=== PATIENT | female | born 1950 | race Caucasian/White ===

== ENCOUNTER 2017-11-09 03:43 | Emergency (ER) | payer MEDICARE, OTHER, SELFPAY ==
[2017-11-09 03:49] VITALS: BP 152/80; PULSE 77; RESP 18; TEMP 36.3; O2SAT 96
[2017-11-09] MEDS: Bupivacaine 0.5% Pres-Free 30 ML VIAL (04:01)
[2017-11-09] MEDS: Lidocaine 2% Multi-Dose 50 ML VIAL (04:02)
--- NOTE | 2017-11-09 04:02 | W.ED.GENAD ---
Discharge Plan Disposition Patient Disposition: HOME Condition: Good Discharge Details Chief Complaint: DentalOral Clinical Impression: Pain, dental Primary Care Provider: Venice Mcdonnell ED Provider: Norberto Sevilla Home Meds and New Rx's Prescriptions: New acetaminophen [Mapap Extra Strength] 500 MG tablet 1,000 mg PO Q6H 5 Days Qty: 60 RF: 0 ibuprofen [Motrin IB] 200 MG tablet 600 mg PO Q6H 5 Days Qty: 60 RF: 0 amoxicillin-pot clavulanate 875-125 mg tablet 1 tab PO Q12H 7 Days Qty: 14 RF: 0 No Action cholecalciferol (vitamin D3) 5,000 UNIT capsule 5,000 unit PO DAILY RF: 0 [id number] acid-lutein 1 EACH tablet,chewable 2 ea PO DAILY RF: 0 citalopram [Celexa] 20 MG tablet 20 mg PO DAILY Qty: 90 RF: 12 fluticasone 16 GM spray,suspension 2 spry NS DAILY Qty: 3 RF: 4 montelukast 10 MG tablet 10 mg PO DAILY Qty: 90 RF: 4 levalbuterol tartrate [Xopenex HFA] 15 GM HFA aerosol inhaler 2 puff Inhalation QID PRNQty: 4 RF: 12 budesonide-formoterol [Symbicort] 10.2 GM HFA aerosol inhaler 2 puff Inhalation BID Qty: 3 RF: 4 prednisone 5 MG tablet 5 mg PO DAILY Qty: 90 RF: 1 Discharge Instructions Instructions: Toothache (ED) Additional Instructions: Please take the Tylenol and Motrin as directed. Please only take the antibiotic if your symptoms do not improve over the next 48 hours. Please follow-up with your dentist as soon as possible for reassessment. If you notice any worsening of your symptoms, or any new symptoms such as vomiting, diarrhea, fever, chills, shortness of breath, chest pain, numbness, weakness, or fainting , please return immediately to the emergency department for reevaluation. Please follow up with your primary care provider as soon as possible for reassessment and reevaluation. As always, it was a pleasure participating in your medical care today. Medical Decision Making MDM Narrative Medical decision making narrative: This is a pleasant 67-year-old female with a past medical history of asthma and some mild dental caries who presents today for evaluation of dental pain in the right lower jaw. It has been going on since last night. It is worsened with chewing and palpation. Physical exam demonstrates a small lymph node by the parotid gland. No significant cervical lymphadenopathy. No significant palpable abscess. No systemic symptoms. Patient was given a dental block and had notable improvement of her symptomatology. We will encourage home use of Tylenol and Motrin, as well as close follow-up with her dentist. We discussed red flags for which to return the patient understands. She will be given a prescription for an antibiotic but we have had a long discussion regarding the importance of holding off until she has potential worsening of her symptoms. If her symptoms do improve we recommend avoiding the antibiotic. I have extensively reviewed the treatment plan and discharge instructions with the patient. I have addressed all patient concerns at this time. The patient was made aware of what symptoms to monitor for that would warrant a return to the emergency department. Discussed the plan with the patient, they demonstrate verbal understanding and agreement with our assessment and plan at this time. HPI - General Adult General Date/Time Provider Initiated Documentation: 11/09/17 03:47. HPI Narrative: This is a very pleasant 67-year-old female with a past medical history of asthma, a Gurjit procedure, as well as occasional gum infection and dental caries. She presents today for evaluation of right lower dental pain. She states that for the last 24-48 hours she has had mild pain in the right lower jaw. It is improved with home topical anesthetics, Tylenol, and Motrin, however this night it woke her up out of sleep and she came in for evaluation. She seen a dentist in the past for this and they have discussed removing the tooth. However she has not called her dentist last night or today. Patient denies any other symptoms. She denies any headache, jaw pain, neck pain, vision changes, numbness, tingling, weakness. She denies any systemic fever or chills. She has not been on any antibiotics recently. Patient denies any other complaints at this time. She denies any pertinent family history. She denies any IV or illicit drug use. Related Data Home Medications Medication Instructions Recorded Confirmed cholecalciferol (vitamin D3) 5,000 unit PO DAILY 05/04/16 11/09/17 [id number] acid-lutein 2 ea PO DAILY tab.chew 05/04/16 11/09/17 levalbuterol tartrate [Xopenex Hfa] 2 puff INHALATION QID PRN #4 08/16/17 11/09/17 inhaler Previous Rx's Medication Instructions Recorded citalopram [Celexa] 20 mg PO DAILY #90 tab-cap 04/20/17 fluticasone 2 spry NS DAILY #3 ea 04/20/17 montelukast 10 mg PO DAILY #90 tab-cap 07/13/17 budesonide-formoterol [Symbicort 2 puff INHALATION BID #3 ea 08/16/17 160/4.5 Mcg Inhaler] prednisone 5 mg PO DAILY #90 tab-cap 09/10/17 acetaminophen [Mapap Extra 1,000 mg PO Q6H 5 Days #60 tab 11/09/17 Strength] amoxicillin-pot clavulanate 1 tab PO Q12H 7 Days #14 tab 11/09/17 ibuprofen [Motrin Ib] 600 mg PO Q6H 5 Days #60 tab 11/09/17 Allergies Allergy/AdvReac Type Severity Reaction Status Date / Time sulfite Allergy Unknown ASTHMA Unverified 11/09/17 03:58 General Stated Complaint: DentalOral SURENDRA: 4 Review of Systems Review of Systems 10 point review of systems was performed, pertinent positives and negatives are noted in the history of present illness. PFSH Family History Mother Essential hypertension Heart disease Neoplasm Father Diabetes Essential hypertension Heart disease Brother Diabetes Maternal Aunt Diabetes Brother Diabetes Heart disease Brother No problems noted. Brother No problems noted. Brother No problems noted. Grandfather Diabetes Social History Smoking/Tobacco Use Status: Never Surgical History Colonoscopy - MAC (~2001) EGD - MAC Extraction of cataract Hernia repair Gurjit Fundoplication POLYPECTOMY Exam Narrative Exam Narrative: 1.Const: Well-nourished, Well-developed, appearing stated age 2.Eyes: PERRL, no conjunctival injection, and symmetrical lids. 3.ENT: Atraumatic external nose and ears. Moist MM. Neck: Symmetric, trachea midline, No thyromegaly. No significant cervical lymphadenopathy. Slightly enlarged single lymph node located just inferior to the right parotid gland. No evidence of gingival or peridental abscess. Dental caries noted on teeth 27,28, and 29. Reproducible tenderness on palpation of the teeth. 4.CVS: +S1/S2, No murmurs or gallops. Peripheral pulses 2+ and equal in all extremities. Brisk capillary refill in all extremities. 5.RESP: Unlabored respiratory effort. Clear to auscultation bilaterally. No wheezes rales or rhonchi 6.GI: Soft, Nontender/Nondistended, No hepatosplenomegaly. No guarding or rebound. 7.MSK: Normocephalic/Atraumatic, Extremities w/o deformity or ttp No cyanosis or clubbing, Normal movement of all extremities 8.Skin: Warm, Dry. No rashes or lesions. 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 Sensation grossly intact, no focal neurologic deficits. 10.Psych: (AAO) x3. Appropriate mood and affect Course Vital Signs Temperature 36.3 C L 11/09/17 03:49 Pulse 77 11/09/17 03:49 Respiratory Rate 18 11/09/17 03:49 Blood Pressure 152/80 H 11/09/17 03:49 Pulse Oximetry 96 11/09/17 03:49 Temperature 36.3 C L 11/09/17 03:49 Pulse 77 11/09/17 03:49 Respiratory Rate 18 11/09/17 03:49 Blood Pressure 152/80 H 11/09/17 03:49 Pulse Oximetry 96 11/09/17 03:49
--- NOTE | 2017-11-09 04:07 | ED.GENADUL_ITS ---
Discharge Plan Disposition Patient Disposition: HOME Condition: Good Discharge Details Chief Complaint: DentalOral Clinical Impression: Pain, dental Primary Care Provider: Venice Mcdonnell ED Provider: Norberto Sevilla Home Meds and New Rx's Prescriptions: New acetaminophen [Mapap Extra Strength] 500 MG tablet 1,000 mg PO Q6H 5 Days Qty: 60 RF: 0 ibuprofen [Motrin IB] 200 MG tablet 600 mg PO Q6H 5 Days Qty: 60 RF: 0 amoxicillin-pot clavulanate 875-125 mg tablet 1 tab PO Q12H 7 Days Qty: 14 RF: 0 No Action cholecalciferol (vitamin D3) 5,000 UNIT capsule 5,000 unit PO DAILY RF: 0 [id number] acid-lutein 1 EACH tablet,chewable 2 ea PO DAILY RF: 0 citalopram [Celexa] 20 MG tablet 20 mg PO DAILY Qty: 90 RF: 12 fluticasone 16 GM spray,suspension 2 spry NS DAILY Qty: 3 RF: 4 montelukast 10 MG tablet 10 mg PO DAILY Qty: 90 RF: 4 levalbuterol tartrate [Xopenex HFA] 15 GM HFA aerosol inhaler 2 puff Inhalation QID PRNQty: 4 RF: 12 budesonide-formoterol [Symbicort] 10.2 GM HFA aerosol inhaler 2 puff Inhalation BID Qty: 3 RF: 4 prednisone 5 MG tablet 5 mg PO DAILY Qty: 90 RF: 1 Discharge Instructions Instructions: Toothache (ED) Additional Instructions: Please take the Tylenol and Motrin as directed. Please only take the antibiotic if your symptoms do not improve over the next 48 hours. Please follow-up with your dentist as soon as possible for reassessment. If you notice any worsening of your symptoms, or any new symptoms such as vomiting, diarrhea, fever, chills, shortness of breath, chest pain, numbness, weakness, or fainting , please return immediately to the emergency department for reevaluation. Please follow up with your primary care provider as soon as possible for reassessment and reevaluation. As always, it was a pleasure participating in your medical care today. Medical Decision Making MDM Narrative Medical decision making narrative: This is a pleasant 67-year-old female with a past medical history of asthma and some mild dental caries who presents today for evaluation of dental pain in the right lower jaw. It has been going on since last night. It is worsened with chewing and palpation. Physical exam demonstrates a small lymph node by the parotid gland. No significant cervical lymphadenopathy. No significant palpable abscess. No systemic symptoms. Patient was given a dental block and had notable improvement of her symptomatology. We will encourage home use of Tylenol and Motrin, as well as close follow-up with her dentist. We discussed red flags for which to return the patient understands. She will be given a prescription for an antibiotic but we have had a long discussion regarding the importance of holding off until she has potential worsening of her symptoms. If her symptoms do improve we recommend avoiding the antibiotic. I have extensively reviewed the treatment plan and discharge instructions with the patient. I have addressed all patient concerns at this time. The patient was made aware of what symptoms to monitor for that would warrant a return to the emergency department. Discussed the plan with the patient, they demonstrate verbal understanding and agreement with our assessment and plan at this time. HPI - General Adult General Date/Time Provider Initiated Documentation: 11/09/17 03:47 . HPI Narrative: This is a very pleasant 67-year-old female with a past medical history of asthma, a Gurjit procedure, as well as occasional gum infection and dental caries. She presents today for evaluation of right lower dental pain. She states that for the last 24-48 hours she has had mild pain in the right lower jaw. It is improved with home topical anesthetics, Tylenol, and Motrin, however this night it woke her up out of sleep and she came in for evaluation. She seen a dentist in the past for this and they have discussed removing the tooth. However she has not called her dentist last night or today. Patient denies any other symptoms. She denies any headache, jaw pain, neck pain, vision changes, numbness, tingling, weakness. She denies any systemic fever or chills. She has not been on any antibiotics recently. Patient denies any other complaints at this time. She denies any pertinent family history. She denies any IV or illicit drug use. Related Data Home Medications Medication Instructions Recorded Confirmed cholecalciferol (vitamin D3) 5,000 unit PO DAILY 05/04/16 11/09/17 [id number] acid-lutein 2 ea PO DAILY tab.chew 05/04/16 11/09/17 levalbuterol tartrate [Xopenex Hfa] 2 puff INHALATION QID PRN #4 08/16/17 inhaler Previous Rx's Medication Instructions Recorded citalopram [Celexa] 20 mg PO DAILY #90 tab-cap 04/20/17 fluticasone 2 spry NS DAILY #3 ea 04/20/17 montelukast 10 mg PO DAILY #90 tab-cap 07/13/17 budesonide-formoterol [Symbicort 2 puff INHALATION BID #3 ea 08/16/17 160/4.5 Mcg Inhaler] prednisone 5 mg PO DAILY #90 tab-cap 09/10/17 acetaminophen [Mapap Extra 1,000 mg PO Q6H 5 Days #60 tab 11/09/17 Strength] amoxicillin-pot clavulanate 1 tab PO Q12H 7 Days #14 tab 11/09/17 ibuprofen [Motrin Ib] 600 mg PO Q6H 5 Days #60 tab 11/09/17 Allergies Allergy/AdvReac Type Severity Reaction Status Date / Time sulfite Allergy Unknown ASTHMA Unverified 11/09/17 03:58 General Stated Complaint: DentalOral SURENDRA: 4 Review of Systems Review of Systems 10 point review of systems was performed, pertinent positives and negatives are noted in the history of present illness. PFSH Family History Mother Essential hypertension Heart disease Neoplasm Father Diabetes Essential hypertension Heart disease Brother Diabetes Maternal Aunt Diabetes Brother Diabetes Heart disease Brother No problems noted. Brother No problems noted. Brother No problems noted. Grandfather Diabetes Social History Smoking/Tobacco Use Status: Never Surgical History Colonoscopy - MAC (~2001) EGD - MAC Extraction of cataract Hernia repair Gurjit Fundoplication POLYPECTOMY Exam Narrative Exam Narrative: 1.Const: Well-nourished, Well-developed, appearing stated age 2.Eyes: PERRL, no conjunctival injection, and symmetrical lids. 3.ENT: Atraumatic external nose and ears. Moist MM. Neck: Symmetric, trachea midline, No thyromegaly. No significant cervical lymphadenopathy. Slightly enlarged single lymph node located just inferior to the right parotid gland. No evidence of gingival or peridental abscess. Dental caries noted on teeth 27, 28, and 29. Reproducible tenderness on palpation of the teeth. 4.CVS: +S1/S2, No murmurs or gallops. Peripheral pulses 2+ and equal in all extremities. Brisk capillary refill in all extremities. 5.RESP: Unlabored respiratory effort. Clear to auscultation bilaterally. No wheezes rales or rhonchi 6.GI: Soft, Nontender/Nondistended, No hepatosplenomegaly. No guarding or rebound. 7.MSK: Normocephalic/Atraumatic, Extremities w/o deformity or ttp No cyanosis or clubbing, Normal movement of all extremities 8.Skin: Warm, Dry. No rashes or lesions. 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 Sensation grossly intact, no focal neurologic deficits. 10.Psych: (AAO) x3. Appropriate mood and affect Course Vital Signs Temperature 36.3 C L 11/09/17 03:49 Pulse 77 11/09/17 03:49 Respiratory Rate 18 11/09/17 03:49 Blood Pressure 152/80 H 11/09/17 03:49 Pulse Oximetry 96 11/09/17 03:49 Temperature 36.3 C L 11/09/17 03:49 Pulse 77 11/09/17 03:49 Respiratory Rate 18 11/09/17 03:49 Blood Pressure 152/80 H 11/09/17 03:49 Pulse Oximetry 96 11/09/17 03:49
== END 2017-11-09 04:23 | disposition home or self-care (01) ==
LOC: ER 04:34
PROVIDERS: Emergency Provider Student in an Organized Health Care Education/Training Program; PCP Family Medicine
DX: R68.84 Jaw pain (principal); K02.9 Dental caries, unspecified
CPT/HCPCS: 64402; 99283

== ENCOUNTER 2018-02-28 01:12 | Outpatient (RCR) | payer MEDICARE, OTHER, SELFPAY ==
[2018-02-28] MEDS: Denosumab 60 MG/ML SYR SC (14:14)
== END 2018-03-24 23:59 | disposition home or self-care (01) ==
LOC: INF 01:12
PROVIDERS: PCP Family Medicine; Visit Provider Family Medicine
DX: M81.0 Age-related osteoporosis without current pathological fracture (principal)
CPT/HCPCS: 96372; J0897

== ENCOUNTER 2018-05-03 01:39 | Outpatient (CLI) | payer MEDICARE, OTHER, SELFPAY ==
--- NOTE | 2018-05-03 15:00 | DI.MAMMO_ITS ---
SYMPTOMS/DIAGNOSIS: SCREENING, Z12.31 MAMMOGRAMS: Mammograms were interpreted according to the usual protocol including computer analysis with CAD system, tomosynthesis and C view imaging. The breast tissue is of moderate radiodensity. There is no demonstrated mass. There are no suspicious calcifications and there has been no significant interval change when compared with prior images. SUMMARY: No evidence of malignancy, category 1. Yearly screening mammography is recommended. Breast density category B. SA ASSESSMENT OF FINDINGS: Negative. Category 1. Patient will receive a letter notifying them of these results. BI-RADS category B. There are scattered areas of fibroglandular density.
== END 2018-05-03 01:59 ==
PROVIDERS: PCP Family Medicine; Visit Provider Nurse Practitioner Family
DX: Z12.31 Encounter for screening mammogram for malignant neoplasm of breast (principal)
CPT/HCPCS: 77063; 77067

== ENCOUNTER 2018-09-13 00:24 | Outpatient (CLI) | payer MEDICARE, OTHER, SELFPAY ==
--- NOTE | 2018-09-13 14:20 | DI.RAD_ITS ---
SYMPTOMS/DIAGNOSIS: OSTEOPENIA, CHRONIC STEROIDS, M85.88 DEXA SCAN: Routine examination was performed. Evaluation of the lateral spine shows a compression deformity of L3, which was present on the prior examination from 2016. Evaluation of the left hip shows a total T score of -1.4 and a Z score of 0. This is consistent with osteopenia and an increased fracture risk. This compares with a total T score of -1.5 from 2016. Evaluation of the lumbar spine shows a total T score of -2.1 and a Z score of - 0.2. This is also consistent with osteopenia and an increased fracture risk. This compares with a total T score of -2.4 from 2016. IMPRESSION: Osteopenia in the lumbar spine and left hip.
== END 2018-09-13 00:44 ==
PROVIDERS: PCP Family Medicine; Visit Provider Family Medicine
DX: M85.88 Other specified disorders of bone density and structure, other site (principal); Z79.52 Long term (current) use of systemic steroids
CPT/HCPCS: 36415; 77080; 80053; 80400; 82306; 85027; 85025

== ENCOUNTER 2018-09-19 09:18 | Outpatient (CLI) | payer MEDICARE, OTHER, SELFPAY ==
[2018-09-19 10:12] LABS: Abs Immature Grans 0.03 k/cumm (0.0-0.09); Absolute Basophil Count 0.05 k/cumm (0.0-0.2); Absolute Eosinophil Count 0.37 k/cumm (0.0-0.7); Absolute Lymphocyte Count 1.94 k/cumm (1.2-3.4); Absolute Monocyte Count 0.51 k/cumm (0.11-0.7); Absolute Neutrophil Count 4.59 k/cumm (1.2-6.7); Basophils % 0.7; Eosinophils % 4.9; HCT 40.3 % (36.0-46.0); HGB 13.1 g/dL (12.0-15.5); Immature Grans % 0.4; Lymphocytes % 25.9; Mean Corp. HGB Concentration 32.5 g/dL (32.0-36.0); Mean Corpuscular Hemoglobin 31.3 pg (27.0-33.0); Mean Corpuscular Volume 96.4 fL (80-95); Monocytes % 6.8; Neutrophils % 61.3; Platelet Count 311 x1000/uL (130-400); RBC 4.18 m/cumm (4.00-5.20); RBC Distribution Width 13.9 % (11.7-14.6); White Blood Cell Count 7.49 k/cumm (4.4-10.8)
[2018-09-19 11:24] LABS: ALT 22 U/L (12-78); AST 13 U/L (15-37); Albumin 3.5 g/dL (3.4-5.0); Alkaline Phosphatase 39 U/L (46-116); Anion Gap 9.9 mmol/L (3-11); BUN 18 mg/dL (7-18); Bilirubin, Total 0.5 mg/dL (0.2-1.0); CO2 28.1 mmol/L (21.0-32.0); Chloride 105 mmol/L (98-107); Glucose 105 mg/dL (70-100); Potassium 4.4 mmol/L (3.5-5.1); Sodium 143 mmol/L (136-145); Total Protein 6.4 g/dL (6.4-8.2)
[2018-09-19 12:27] LABS: Vitamin D 25 Total 47.2 ng/ml (30-100)
[2018-09-19 16:42] LABS: Cortisol (Baseline) 6 ug/dl
== END 2018-09-19 09:38 ==
PROVIDERS: PCP Family Medicine; Visit Provider Family Medicine
DX: D84.9 Immunodeficiency, unspecified (principal); M81.0 Age-related osteoporosis without current pathological fracture; Z79.52 Long term (current) use of systemic steroids
CPT/HCPCS: 36415; 80053; 80400; 82306; 85027; 85025

== ENCOUNTER 2019-02-27 02:01 | Outpatient (RCR) | payer MEDICARE, OTHER, SELFPAY ==
[2019-02-27] MEDS: Denosumab 60 MG/ML SYR SC (13:14)
== END 2019-03-24 23:59 | disposition home or self-care (01) ==
LOC: INF 02:01
PROVIDERS: PCP Family Medicine; Visit Provider Family Medicine
DX: M81.0 Age-related osteoporosis without current pathological fracture (principal); Z79.51 Long term (current) use of inhaled steroids
CPT/HCPCS: 96372; J0897

== ENCOUNTER 2020-02-29 01:52 | Outpatient (RCR) | payer MEDICARE, OTHER, SELFPAY ==
[2020-02-29] MEDS: Denosumab 60 MG/ML SYR SC (14:12)
== END 2020-03-24 23:59 | disposition home or self-care (01) ==
LOC: INF 01:52
PROVIDERS: PCP Family Medicine; Visit Provider Family Medicine
DX: J45.909 Unspecified asthma, uncomplicated (principal); Z79.52 Long term (current) use of systemic steroids
CPT/HCPCS: J0897; 96372

== ENCOUNTER 2020-10-09 01:10 | Outpatient (CLI) | payer MEDICARE, SELFPAY ==
--- NOTE | 2020-10-09 13:21 | DI.MAMMO_ITS ---
Exam(s) MAMMO SCREENING EXAM: MAMMO SCREENING CLINICAL HISTORY: screening,z12.39. TECHNIQUE: Bilateral full field digital CC and MLO mammographic images were obtained with 3D tomosyn thesis and utilizing computer aided detection (CAD). COMPARISON: Prior mammograms dating back to 2013, the most recent being April 2018. FINDINGS: There are no new spiculated masses nor malignant appearing microcalcification groups. There is no significant architectural distortion nor skin thickening-retraction. IMPRESSION: No radiographic evidence of malignancy. BI-RADS Category 1 - Negative Breast Density - Category B - Scattered areas of fibroglandular density Breast density Category C or D implies that the patient has dense breast tissue. Dense breast tissue can make it harder to find cancer on a mammogram. Dense breast tissue is also associated with an incr eased risk of breast cancer. This information about the result of the mammogram report was provided to the patient to raise their awareness. Use this report when you speak with the patient about their risks for breast cancer, which includes their family history. At that time, you may recommend additional screening tests (Ultrasoun d or MRI) as these tests may add significant information. A negative radiographic report should not delay biopsy if a dominant or clinically suspicious mass is present. Up to ten percent of cancers are not identified on mammography. A negative report may reinforce clinical impression. Adenosis and dense breasts may obscure an underlying neoplasm. False positive reports average 6 to 10%. Patient will receive a letter notifying them of these results.
== END 2020-10-09 01:30 ==
PROVIDERS: PCP Family Medicine; Visit Provider Family Medicine
DX: Z12.31 Encounter for screening mammogram for malignant neoplasm of breast (principal)
CPT/HCPCS: 77063; 77067

== ENCOUNTER 2020-12-25 19:49 | Emergency (ER) | payer MEDICARE, OTHER, SELFPAY ==
[2020-12-25 19:54] VITALS: BP 152/84; PULSE 85; RESP 20; TEMP 36.7; O2SAT 97
--- NOTE | 2020-12-25 20:15 | W.ED.GENAD ---
Discharge Plan Disposition Patient Disposition: HOME Condition: Good Discharge Details Clinical Impression: Sialadenitis Primary Care Provider: Venice Mcdonnell ED Provider: Norberto Sevilla Home Meds and New Rx's Prescriptions: New amoxicillin-pot clavulanate [Augmentin] 875-125 mg tablet 1 tab PO BID 7 Days Qty: 14 RF: 0 Continued cholecalciferol (vitamin D3) 5,000 UNIT capsule 5,000 unit PO DAILY RF: 0 [id number] acid-lutein 1 EACH tablet,chewable 2 ea PO DAILY RF: 0 citalopram [Celexa] 20 mg tablet 20 mg PO DAILY Qty: 90 RF: 12 fluticasone propionate 50 mcg/actuation spray,suspension 2 spray NS DAILY Qty: 29.6 RF: 4 levalbuterol tartrate [Xopenex HFA] 45 mcg/actuation HFA aerosol inhaler 2 puff Inhalation QID PRN (Reason: shortness of breath) Qty: 4 RF: 5 montelukast 10 mg tablet 10 mg PO DAILY Qty: 90 RF: 4 prednisone 5 mg tablet 5 mg PO DAILY PRN (Reason: asthma) Qty: 90 RF: 1 Discharge Instructions Instructions: Sialoadenitis (ED) Additional Instructions: At this time you do have a small stone in your salivary gland, probably sialolith. We were able to remove most of the pus, please take the antibiotic as directed. You have been given a small bottle to go home with and the rest of the prescription has been sent to your [facility] drugstore on file. Please take Tylenol as needed for pain. Eat plenty of sour things to help drain the area. If you notice any worsening of your symptoms, or any new symptoms such as difficulty swallowing, swelling around your neck, vomiting, diarrhea, fever, chills, shortness of breath, chest pain, numbness, weakness, or fainting , please return immediately to the emergency department for reevaluation. Please follow up with your primary care provider as soon as possible for reassessment and reevaluation. As always, it was a pleasure participating in your medical care today. Referrals: Venice Mcdonnell MD, [place] [Primary Care Provider] - Medical Decision Making 70-year-old female with a past medical history of sialolith in the past, presents today for swelling under her left submandibular area/plan. States that it started this morning. She admits to mild ache, but denies fever, chills, difficulty swallowing, difficulty breathing, or other complaints. She states that it feels similar to when she had her last sialoliths. She denies any other complaints at this time. No other modifying factors. Physical exam demonstrates notably enlarged left submandibular gland, the patient's salivary duct does have a small palpable firmness in it which is likely the stone. Notable amount of pus was exuded from the area, after about 1 to 2 cc of pus were removed the patient had notable improvement of her symptoms and felt much better. Notable relief in pain and pressure. Suspect mild sial adenitis, no evidence of Ludewig's angina whatsoever. Airway notably stable and clear. Patient will be started on Augmentin and given a dose here. I have extensively reviewed the treatment plan and discharge instructions with the patient. I have addressed all patient concerns at this time. The patient was made aware of what symptoms to monitor for that would warrant a return to the emergency department. Discussed the plan with the patient, they demonstrate verbal understanding and agreement with our assessment and plan at this time. The documentation in this chart was dictated using [employer] dictation software. Please excuse any dictation errors. HPI General Date/Time Provider Initiated Documentation: 12/25/20 19:59. HPI Narrative: 70-year-old female with a past medical history of sialolith in the past, presents today for swelling under her left submandibular area/plan. States that it started this morning. She admits to mild ache, but denies fever, chills, difficulty swallowing, difficulty breathing, or other complaints. She states that it feels similar to when she had her last sialoliths. She denies any other complaints at this time. No other modifying factors. Related Data Home Medications Medication Instructions Recorded Confirmed cholecalciferol (vitamin D3) 5,000 unit PO DAILY 05/04/16 12/25/20 [id number] acid-lutein 2 ea PO DAILY tab.chew 05/04/16 12/25/20 citalopram 20 mg tablet 20 mg PO DAILY #90 tab-cap 04/03/20 12/25/20 fluticasone propionate 50 2 spray NS DAILY #29.6 ml 04/03/20 12/25/20 mcg/actuation nasal spray,suspension levalbuterol tartrate 45 2 puff INHALATION QID PRN #4 07/10/20 12/25/20 mcg/actuation aerosol inhaler inhaler montelukast 10 mg tablet 10 mg PO DAILY #90 tab-cap 07/10/20 12/25/20 prednisone 5 mg tablet 5 mg PO DAILY PRN #90 tab 12/03/20 12/25/20 amoxicillin-pot clavulanate 1 tab PO BID 7 Days #14 tab 12/25/20 [Augmentin] Previous Rx's Medication Instructions Recorded citalopram 20 mg tablet 20 mg PO DAILY #90 tab-cap 04/03/20 fluticasone propionate 50 2 spray NS DAILY #29.6 ml 04/03/20 mcg/actuation nasal spray,suspension levalbuterol tartrate 45 2 puff INHALATION QID PRN #4 07/10/20 mcg/actuation aerosol inhaler inhaler montelukast 10 mg tablet 10 mg PO DAILY #90 tab-cap 07/10/20 prednisone 5 mg tablet 5 mg PO DAILY PRN #90 tab 12/03/20 amoxicillin-pot clavulanate 1 tab PO BID 7 Days #14 tab 12/25/20 [Augmentin] Allergies Allergy/AdvReac Type Severity Reaction Status Date / Time sulfite Allergy Unknown ASTHMA Verified 12/25/20 19:58 General Stated Complaint: FacialProb SURENDRA: 5 Review of Systems All systems reviewed & are unremarkable except as noted in HPI and below [facility] Medical History Anticoagulated on warfarin Anxiety Asthma (01/05/11) severe Depressive disorder Gastroesophageal reflux disease (01/05/11) per EGD at [facility] [place]; Neg. 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) 04/01/16-[facility] [place] Sleep apnea (01/26/17) CANNOT TOLERATE MOUTH APPLIANCE Steroid side effects (02/04/16) Vitamin D deficiency (03/03/16) Surgical History Colonoscopy - MAC (~2001) NEG EGD - MAC + GERD Extraction of cataract Hernia repair 04/10 History of cataract removal with insertion of prosthetic lens History of nasal polypectomy (12/25/13) Gurjit Fundoplication 04/10 POLYPECTOMY Family History Mother Essential hypertension PACEMAKER Heart disease Skin cancer Father , 46 Diabetes Essential hypertension Heart disease Brother Diabetes Hyperlipidemia Maternal Aunt Diabetes Brother Diabetes Heart disease Depression Brother Arthritis Paternal Grandfather , 60s Diabetes Maternal Grandfather , 90s Diabetes Maternal Grandmother , 97 No problems noted. Paternal Grandmother , 80s No problems noted. Brother No problems noted. Brother No problems noted. Social History Smoking/Tobacco Use Status: Former Tobacco Use Quit Date: 07/23/1968 Tobacco: How many years used: 2 Second Hand Exposure: Yes Smoking risk assessment performed?: Yes Alcohol Intake: never Drug use: Never Substance use type: does not use Counseling given: No Counseling provided: none Caregiver/Support person: No Household members: spouse Housing: house Communication Needs: None Do you need help understanding health information?: Rarely Pets and animals: Yes Pets and animals: cat(s) Sexually active: Yes Do you think of yourself as: straight/heterosexual Current gender identity: female What is your relationship status?: How often do you talk on the phone with friends or family?: twice per week How often do you get together with friends or relatives?: twice per week How often do you attend zoroastrian or jew services?: decline to answer Do you belong to any clubs or organized social groups?: no Panel score (0-1 are the most socially isolated patients): 2 What type of physical activity do you participate in: walking Duration: 60-90 minutes/day Frequency: 1-2 times per week Araeblla/Temple: Religious Special arabella needs: No Seatbelt use: always Helmet use: No Drive intox or ride w/intox courtesy driver: No Do you feel safe in your relationship?: Yes History History 1 Para Hx # Term Pregnancies Multiple births Hx # Pregnancies Ectopic pregnancies AB induced Hx Number of Living Children AB spontaneous Exam Narrative Exam Narrative: 1.Const: Well-nourished, Well-developed, appearing stated age 2.Eyes: PERRL, no conjunctival injection, and symmetrical lids. 3.ENT: Atraumatic external nose and ears. Moist MM. Neck: Symmetric, trachea midline, No thyromegaly. Patient demonstrates evidence of a enlarged left submandibular gland, evaluation of the extrusion point of saliva from the mouth demonstrates a small amount of pus, and a small palpable stone. The area was milked and suction for about 5 minutes, 1 to 2 cc of pus were removed, patient had notable improvement of her symptoms after this and felt much better. Small fragments of the stone were also noted. After notable amount of milking the patient began exuding normal-appearing saliva. No evidence of airway compromise whatsoever. No evidence of Ludewig's angina. 4.CVS: +S1/S2, No murmurs or gallops. Peripheral pulses 2+ and equal in all extremities. Brisk capillary refill in all extremities. 5.RESP: Unlabored respiratory effort. Clear to auscultation bilaterally. No wheezes rales or rhonchi 6.GI: Soft, Nontender/Nondistended, No hepatosplenomegaly. No guarding or rebound. 7.MSK: Normocephalic/Atraumatic, Extremities w/o deformity or ttp No cyanosis or clubbing, Normal movement of all extremities 8.Skin: Warm, Dry. No rashes or lesions. 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 Sensation grossly intact, no focal neurologic deficits. 10.Psych: (AAO) x3. Appropriate mood and affect Course Vital Signs Vital signs: Vital Signs Temperature 36.7 C 12/25/20 19:54 Pulse 85 12/25/20 19:54 Respiratory Rate 20 12/25/20 19:54 Blood Pressure 152/84 H 12/25/20 19:54 Pulse Oximetry 97 12/25/20 19:54 Temperature 36.7 C 12/25/20 19:54 Temperature Source Temporal Artery Scan 12/25/20 19:54 Pulse 85 12/25/20 19:54 Respiratory Rate 20 12/25/20 19:54 Respiratory Effort 12/25/20 19:59 Blood Pressure 152/84 H 12/25/20 19:54 Blood Pressure Position Sitting 12/25/20 19:54 Pulse Oximetry 97 12/25/20 19:54 Oxygen Delivery Method Room Air 12/25/20 19:54 Oxygen Flow Rate 0 12/25/20 19:54 Pain Level 8 12/25/20 19:54
[2020-12-25] MEDS: Amox. 875/Clav. 125, 2 TABS/BTL 1 TAB PO (20:24)
== END 2020-12-25 21:06 | disposition home or self-care (01) ==
PROVIDERS: Emergency Provider Student in an Organized Health Care Education/Training Program; PCP Family Medicine
DX: K11.21 Acute sialoadenitis (principal)
CPT/HCPCS: 99283

== ENCOUNTER 2020-12-27 11:57 | Inpatient (IN) | payer MEDICARE, OTHER, SELFPAY ==
[2020-12-27 12:01] VITALS: BP 144/75; PULSE 117; RESP 20; TEMP 36; O2SAT 99
--- NOTE | 2020-12-27 12:16 | ED.GENADUL_ITS ---
Discharge Plan Disposition Patient Disposition: [facility] INPATIENT Condition: Stable Discharge Details Chief Complaint: DentalOral Clinical Impression: Dehydration, Sialadenitis Primary Care Provider: Venice Mcdonnell ED Provider: Juanito Duncan Home Meds and New Rx's Prescriptions: No Action cholecalciferol (vitamin D3) 5,000 UNIT capsule 5,000 unit PO DAILY RF: 0 [id number] acid-lutein 1 EACH tablet,chewable 2 ea PO DAILY RF: 0 citalopram [Celexa] 20 mg tablet 20 mg PO DAILY Qty: 90 RF: 12 fluticasone propionate 50 mcg/actuation spray,suspension 2 spray NS DAILY Qty: 29.6 RF: 4 levalbuterol tartrate [Xopenex HFA] 45 mcg/actuation HFA aerosol inhaler 2 puff Inhalation QID PRN (Reason: shortness of breath) Qty: 4 RF: 5 montelukast 10 mg tablet 10 mg PO DAILY Qty: 90 RF: 4 prednisone 5 mg tablet 5 mg PO DAILY PRN (Reason: asthma) Qty: 90 RF: 1 amoxicillin-pot clavulanate [Augmentin] 875-125 mg tablet 1 tab PO BID 7 Days Qty: 14 RF: 0 Medical Decision Making 70 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 Also not has tongue swelling. She denies fevers, chills, vision changes. She is able to swallow but is having pain when doing so. Her anterior tongue does have some swelling, can open her mouth, hard to visualize the posterior pharynx due to the sweling. Has pain with palpation under the left jaw and some swelling. No restricted neck movements and no pain over the hyoid are of her neck. Suspect this could be continued sialadenitis but given worsening symptoms will obtain labs and ct to evaluate for possible abscess. labs show wbc of [address] shows large stone in the left submandibular duct, no acute abscess. Pt stable. Discussed with ENT Dr. Ragsdale and since she has been on augmentin already, has a wbc of 17 recommended admission for IV antibiotics, decadron and if still in the hospital Wednesday could see her as an inpatient for further surgical options but acutely no surgical intervention inidcated. Discussed with pt and she is agreeable to this, spoke with Dr. Nieto who accepts for admission Differential Diagnosis Differential Diagnosis: abscess, duct stone, dental infection Imaging Data Radiologic Study: Attestation: I personally reviewed and interpreted this imaging study as follows: Imaging: CT Scan Radiologist's impression: [9 millimeter stone in the distal left submandibular duct causing marked dilatation as well as inflammation.. Multiple other smaller stones are seen. The right submandibular duct is dilated however nose obstructing stones are seen. The findings were called to Dr. Duncan of the emergency department. HPI General Mode of arrival: ambulatory . Date/Time Provider Initiated Documentation: 12/27/20 11:58 . Limitations to Documentation: no limitations . Information obtained by: patient . History of Present Illness 70 year old F presents to the emergency department with the chief complaint of left lower jaw pain/swelling, described as moderate, with intensity rated at 8. Quality is described as aching, and is localized to the face and neck. Patient reports no radiation. Patient started experiencing this day(s) (3) and it has been constant. No relieving factors improve symptom(s), No exacerbating factors reported . Related Data Home Medications Medication Instructions Recorded Confirmed cholecalciferol (vitamin D3) 5,000 unit PO DAILY 05/04/16 12/27/20 [id number] acid-lutein 2 ea PO DAILY tab.chew 05/04/16 12/27/20 citalopram 20 mg tablet 20 mg PO DAILY #90 tab-cap 04/03/20 12/27/20 fluticasone propionate 50 2 spray NS DAILY #29.6 ml 04/03/20 12/27/20 mcg/actuation nasal spray,suspension levalbuterol tartrate 45 2 puff INHALATION QID PRN #4 07/10/20 12/27/20 mcg/actuation aerosol inhaler inhaler montelukast 10 mg tablet 10 mg PO DAILY #90 tab-cap 07/10/20 12/27/20 prednisone 5 mg tablet 5 mg PO DAILY PRN #90 tab 12/03/20 12/27/20 amoxicillin-pot clavulanate 1 tab PO BID 7 Days #14 tab 12/25/20 12/27/20 [Augmentin] Previous Rx's Medication Instructions Recorded citalopram 20 mg tablet 20 mg PO DAILY #90 tab-cap 04/03/20 fluticasone propionate 50 2 spray NS DAILY #29.6 ml 04/03/20 mcg/actuation nasal spray,suspension levalbuterol tartrate 45 2 puff INHALATION QID PRN #4 07/10/20 mcg/actuation aerosol inhaler inhaler montelukast 10 mg tablet 10 mg PO DAILY #90 tab-cap 07/10/20 prednisone 5 mg tablet 5 mg PO DAILY PRN #90 tab 12/03/20 amoxicillin-pot clavulanate 1 tab PO BID 7 Days #14 tab 12/25/20 [Augmentin] Allergies Allergy/AdvReac Type Severity Reaction Status Date / Time sulfite Allergy Unknown ASTHMA Verified 12/27/20 12:03 General Stated Complaint: DentalOral SURENDRA: 3 Review of Systems All systems reviewed & are unremarkable except as noted in HPI and below Constitutional Constitutional: Denies chills, Denies fever(s) and Denies weakness Cardiovascular Cardiovascular: Denies chest pain and Denies dyspnea Respiratory Respiratory: Denies cough and Denies dyspnea Gastrointestinal Gastrointestinal: Denies abdominal pain, Denies nausea and Denies vomiting Musculoskeletal Musculoskeletal: Denies joint swelling Neurologic Neurologic: Denies weakness Psychiatric Psychiatric: Denies depression [facility] Medical History Anticoagulated on warfarin Anxiety Asthma (01/05/11) severe Depressive disorder Gastroesophageal reflux disease (01/05/11) per EGD at [facility] [place]; Neg. 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) 04/01/16-[facility] [place] Sleep apnea (01/26/17) CANNOT TOLERATE MOUTH APPLIANCE Steroid side effects (02/04/16) Vitamin D deficiency (03/03/16) Surgical History Colonoscopy - MAC (~2001) NEG EGD - MAC + GERD Extraction of cataract Hernia repair 04/10 History of cataract removal with insertion of prosthetic lens History of nasal polypectomy (12/25/13) Gurjit Fundoplication 04/10 POLYPECTOMY Family History Mother Essential hypertension PACEMAKER Heart disease Skin cancer Father , 46 Diabetes Essential hypertension Heart disease Brother Diabetes Hyperlipidemia Maternal Aunt Diabetes Brother Diabetes Heart disease Depression Brother Arthritis Paternal Grandfather , 60s Diabetes Maternal Grandfather , 90s Diabetes Maternal Grandmother , 97 No problems noted. Paternal Grandmother , 80s No problems noted. Brother No problems noted. Brother No problems noted. Social History Smoking/Tobacco Use Status: Former Tobacco Use Quit Date: 07/23/1968 Tobacco: How many years used: 2 Second Hand Exposure: Yes Smoking risk assessment performed?: Yes Alcohol Intake: never Drug use: Never Substance use type: does not use Counseling given: No Counseling provided: none Caregiver/Support person: No Household members: spouse Housing: house Communication Needs: None Do you need help understanding health information?: Rarely Pets and animals: Yes Pets and animals: cat(s) Sexually active: Yes Do you think of yourself as: straight/heterosexual Current gender identity: female What is your relationship status?: How often do you talk on the phone with friends or family?: twice per week How often do you get together with friends or relatives?: twice per week How often do you attend tenriism or jainism services?: decline to answer Do you belong to any clubs or organized social groups?: no Panel score (0-1 are the most socially isolated patients): 2 What type of physical activity do you participate in: walking Duration: 60-90 minutes/day Frequency: 1-2 times per week Arabella/Jewish: Quaker Special arabella needs: No Seatbelt use: always Helmet use: No Drive intox or ride w/intox local owner operator truck driver: No Do you feel safe at home: Yes Do you feel safe in your relationship?: Yes History History 1 Para Hx # Term Pregnancies Multiple births Hx # Pregnancies Ectopic pregnancies AB induced Hx Number of Living Children AB spontaneous Exam Const General: no acute distress Orientation: alert HENMT Head: normal to inspection Ears: external ears normal General nose exam: external nose normal Mouth: moist mucous membranes Eyes General: appearance normal, both eyes and all related structures Neck Neck: full ROM and no lymphadenopathy Resp Effort & Inspection: normal respiratory effort and able to speak in complete sentences Cardio Rate: regular rate Skin General skin exam: no rashes or lesions noted Neuro General: patient alert and patient oriented x3 Extrem General: normal to inspection Psych Mental Status: mental status grossly normal Course Vital Signs Vital signs: Vital Signs Temperature 36.0 C L 12/27/20 12:01 Pulse 117 H 12/27/20 12:01 Respiratory Rate 20 12/27/20 12:01 Blood Pressure 144/75 H 12/27/20 12:01 Pulse Oximetry 99 12/27/20 12:01 Temperature 36.0 C L 12/27/20 12:01 Temperature Source Temporal Artery Scan 12/27/20 12:01 Pulse 117 H 12/27/20 12:01 Respiratory Rate 20 12/27/20 12:01 Blood Pressure 144/75 H 12/27/20 12:01 Blood Pressure Position Sitting 12/27/20 12:01 Pulse Oximetry 99 12/27/20 12:01 Oxygen Delivery Method Room Air 12/27/20 12:01 Oxygen Flow Rate 0 12/27/20 12:01 Pain Level 8 12/27/20 12:01
[2020-12-27 12:50] LABS: Absolute Eosinophil Count 0.07 10^3/uL (0.0-0.7); Absolute Lymphocyte Count 1.74 10^3/uL (1.2-3.4); Absolute Neutrophil Count 14.07 10^3/uL (1.2-6.7); Basophils % 0.3; Eosinophils % 0.4; HCT 41.5 % (36.0-46.0); HGB 13.7 g/dL (11.2-15.7); Immature Grans % 0.6; Lymphocytes % 9.7; MCH 31.4 pg (27.0-33.0); MPV 8.8 fL (8.0-11.0); Monocytes % 10.6; Neutrophils % 78.4; Nucleated RBC 0 %; RBC 4.37 10^6/uL (3.93-5.22); RDW 13.1 % (11.7-14.6); RDW-SD 45.7 fL; WBC 17.95 10^3/uL (4.4-10.8)
[2020-12-27 12:56] LABS: Absolute Basophil Count 0.05 10^3/uL (0.0-0.2)
[2020-12-27 13:02] LABS: ALT 24 U/L (14-59); AST 16 U/L (15-37); Albumin 3.6 g/dL (3.4-5.0); Alkaline Phosphatase 59 U/L (46-116); Anion Gap 8.8 mmol/L (3-11); BUN 10 mg/dL (7-18); Bilirubin, Total 0.8 mg/dL (0.2-1.0); CO2 30.2 mmol/L (21.0-32.0); CREATININE 0.8 mg/dL (0.55-1.02); Calcium 9.4 mg/dL (8.5-10.1); Chloride 97 mmol/L (98-107); Glucose 120 mg/dL (74-106); Potassium 3.9 mmol/L (3.5-5.1); Sodium 136 mmol/L (136-145); Total Protein 7.6 g/dL (6.4-8.2)
[2020-12-27] MEDS: Omnipaque 350 MG/ML 100 ML BTL IJ (13:04)
[2020-12-27] MEDS: Normal Saline Flush 10 ML SYR IVP ×2 (13:05→21:19)
[2020-12-27] MEDS: Normal Saline - Diluent 50 ML VIAL IV (13:05)
[2020-12-27 13:10] LABS: Platelet Count 337 10^3/uL (130-400)
--- NOTE | 2020-12-27 13:10 | DI.CT_ITS ---
Exam(s) CT NECK W EXAM: CT NECK W CLINICAL HISTORY: pain and swelling left lower jaw. TECHNIQUE: Imaging Protocol: Axial computed tomography images with coronal and sagittal reformatted images were created and reviewed CONTRAST MATERIAL: Intravenous: Omnipaque 350 Contrast volume:100 ml Contrast route:IV - COMPARISON: No exams were available for comparison FINDINGS: Parotids: Normal. Submandibular glands: Enlarged bilateral submandibular glands, left greater than right. The bilatera l submandibular ducts are dilated, left greater than right. There is a large stone seen at the dista l left submandibular duct, at the floor of the mouth, measuring 9 x 5 x 5 millimeters. Multiple othe r stones are seen with a within a markedly dilated left submandibular duct. The right submandibular duct is also dilated however no stones are seen. There is no evidence of an abscess. The inflammati on causes some deviation of the airway. Thyroid: Small nodules, less than a centimeter in size. No follow-up necessary. Sinuses: There has been previous bilateral medial antrectomies. No air-fluid levels or significant m ucous retention. Mastoid air cells clear. lymphadenopathy: There is scattered lymph nodes seen denisse g the level one to level three all measuring less than 8 mm in short axis diameter which are physiolo gic in nature. Carotids/Jugular: Mild calcific plaque at the proximal right internal carotid artery. No significan t stenosis. The visualized portions of the brain are unremarkable. . Images through both lung apices are unremarkable. An azygos lobe, normal variant is incidentally n oted. IMPRESSION: 9 millimeter stone in the distal left submandibular duct causing marked dilatation as well as inflamm ation.. Multiple other smaller stones are seen. The right submandibular duct is dilated however nos e obstructing stones are seen. The findings were called to Dr. Duncan of the emergency department. RADIATION DOSE DELIVERED: 398.96mGy.cm Total DLP DATA REPOSITORY: All CT scans at this facility are submitted to the National Radiology Data Registry (NRDR) Dose Index Registry (DIR) with the [employer] (ACR). RADIATION OPTIMIZATION: All CT scans at this facility use at least one of these dose optimization te chniques: automated exposure control; mA and/or kV adjustment per patient size (includes targeted exa ms where dose is matched to clinical indication); or iterative reconstruction.
[2020-12-27 13:11] LABS: Diff Comment Agrees w/ Instrument; RBC Morphology Normal
--- OUTSIDE RECORDS SUMMARY | 2020-12-27 13:12 | XMS_ITS ---
:1950 Author Care Team Providers Name Role Phone ZIA LOFTON Primary Care Provider [phone] [facility] Primary Care Provider [phone] IISAH LEGGETTAJAY [facility] Dentist [phone] Allergies Code Code System Name Reaction Severity Status Onset Cigarette Smoke ? ? Active ? Pollen Extracts ? ? Active ? Sulfite ? ? Active ? Medications Name Status Start Date Stop Date ? ? Ambien 10 mg tablet Completed ? 09/17/2017 Take 1 tablet every day by oral route. amoxicillin 500 mg capsule Active ? Not a vailable amoxicillin 500 mg-potassium Active ? Not available clavulanate 125 mg tablet amoxicillin 875 mg tablet Active ? Not av ailable Breo Ellipta 200 mcg-25 mcg/dose powder for inhalation Active ? Not available Inhale 1 puff every day by inhalation route. citalopram 10 mg tablet Completed 06/28/2013 09/27/19 14 1 (one) Tablet Tablet: qd - daily citalopram 20 mg tablet Active ? Not avai lable Take 1 tablet every day by oral route. fluticasone propionate Active ? Not avail able fluticasone propionate 50 Active ? Not av ailable mcg/actuation nasal spray,suspension levalbuterol HFA 45 Active ? Not availabl e mcg/actuation aerosol inhaler montelukast Active ? Not available montelukast 10 mg tablet Active ? Not alok ilable Multivitamins Active ? Not available omeprazole 40 mg capsule,delayed release Completed 014 09/26/2013 1 (one) Capsule DR Capsule DR: qd - PO daily prednisone Active ? Not available 5 mg daily prednisone 10 mg tablet Active ? Not avai lable prednisone 2.5 mg tablet Completed 06/28/2013 014 1 (one) Tablet: two times daily, as needed prednisone 20 mg tablet Active ? Not avai lable prednisone 5 mg tablet Active ? Not avail able Prolia 60 mg/mL subcutaneous syringe Active ? Not available Inject 1 mL by subcutaneous route. Symbicort 160 mcg-4.5 Active ? Not availa ble mcg/actuation HFA aerosol inhaler Vitamin D3 Active ? Not available Xopenex Active ? Not available zolpidem 5 mg tablet Active ? Not availab le Problems Name Status Onset Date Source ? Vitamin D Deficiency Active 09/12/2017 ? Anxiety Active 09/12/2017 ? Depressive Disorder Active 09/12/2017 ? Paraesophageal Hernia Active 09/12/2017 ? Lesion of Liver Active 09/12/2017 ? Osteopenia Active 09/12/2017 ? Hypoxia Unknown 09/12/2017 ? History of Pulmonary Embolus Active 09/12/2017 ? Nmwej-5-Lyqyjlxwoag Deficiency Unknown ? H istory Hypersomnia Unknown ? History Obstructive Sleep Apnea Syndrome Active ? History Asthma Active ? History Snoring Unknown ? History Procedure by Method Active ? History Long-term Current Use of Drug Therapy Active ? History Radiology Result Abnormal Active ? Histor y Procedures Date Name Performed by ? ? Cataract Surgery Information not avai lable Results Lab Results None recorded. Past Encounters None recorded. Social History Tobacco Smoking Status Never Smoker Vaccine List Vaccine Type pneumococcal conjugate PCV 13 11/22/2016 pneumococcal polysaccharide PPV23 03/12/2008 02/22/2015 Tdap 03/12/2008 Plan of Care Reminders Provider Appointments None ? ? recorded. Lab None ? ? recorded. Referral None ? ? recorded. Procedures None ? ? recorded. Surgeries None ? ? recorded. Imaging None ? ? recorded. Vitals 09/17/2017 03:00PM Office 30 Height Weight Blood Pressure 155.57 cm 138/68 mm[Hg] 11/13/2016 Height Weight Blood Pressure 155.57 cm 71.27 kg 132/84 mm[Hg] 10/16/2016 Height Weight Blood Pressure 155.57 cm 70.99 kg 110/68 mm[Hg] 07/07/2013 Height Weight Blood Pressure 158.75 cm 74.48 kg 118/72 mm[Hg]
[2020-12-27] MEDS: Dexamethasone 10 MG/ML VIAL IVP (13:27)
[2020-12-27] MEDS: fentaNYL 100 MCG/2 ML VIAL 50 MCG IVP (13:27)
[2020-12-27] MEDS: Normal Saline 1,000 ML 1000 ML IV (13:28)
[2020-12-27 14:52] LABS: Source Nasal/Nares
[2020-12-27] MEDS: PIPERACILLIN/TAZO 4.5 GM in Normal Saline 100 ML IVPB (14:55)
[2020-12-27 15:29] VITALS: BP 154/90; PULSE 95; RESP 16; TEMP 36.6; O2SAT 94
--- NOTE | 2020-12-27 15:44 | W.PM.HP.N ---
Date of service: 12/27/20 Time of Service: 15:44 Assessment and Plan Assessment and plan (1) Sialadenitis: Status: Acute Assessment and plan: failed outpatient treatment with augmentin. placed on zosyn day [address] scan received decadron in ED will consult ENT, inpatient if here on Wednesday still or outpatient if d/c prior (2) Vitamin D deficiency: Status: Chronic Assessment and plan: continue supplementation (3) Asthma: Status: Chronic Assessment and plan: stable, discussed with Dr Mcgraw History of Present Illness History of Present Illness Chief Complaint: plugged salivary gland Narrative: this is a 70 year old patient with history of asthma who presented 2 days ago to the ED with swelling to left submandibular area, diagnosed with sialadenitis. she was placed on augmentin and discharged to f/u with pcp. She took antibiotics as directed but symptoms worsened so returned here today. She now has tongue swelling, denies fevers or chills. She is able to swallow but is having pain when doing so. Her anterior tongue does have some swelling, can open her mouth, hard to visualize the posterior pharynx due to the swelling. Has pain with palpation under the left jaw and some swelling. No restricted neck movements and no pain over the hyoid are of her neck. Suspect this could be continued sialadenitis but given worsening symptoms labs and ct obtained to evaluate for possible abscess. labs show wbc of [address] shows large stone in the left submandibular duct, no acute abscess. Her case was discussed with ENT Dr. Ragsdale and since she has been on augmentin already, has a wbc of 17 recommended admission for IV antibiotics, decadron and if still in the hospital Wednesday could see her as an inpatient for further surgical options but acutely no surgical intervention indicated. She was placed on zosyn and will be admitted to med/surg for further management Review of Systems All systems reviewed & are unremarkable except as noted in HPI and below Constitutional Constitutional: Denies chills, Denies fever(s) and Denies weakness Cardiovascular Cardiovascular: Denies chest pain and Denies dyspnea Respiratory Respiratory: Denies cough and Denies dyspnea Gastrointestinal Gastrointestinal: Denies abdominal pain, Denies nausea and Denies vomiting Musculoskeletal Musculoskeletal: Denies joint swelling Neurologic Neurologic: Denies weakness Psychiatric Psychiatric: Denies depression [facility] Medical History Anticoagulated on warfarin Anxiety Asthma (01/05/11) severe Depressive disorder Gastroesophageal reflux disease (01/05/11) per EGD at [facility] [place]; Neg. colonoscopy Hiatal hernia 08/19/15-MEDIUM SIZED ([facility] [place] History of pulmonary embolus (PE) (06/22/13) 06/22/13 History of pulmonary embolus (PE) (06/22/13) Lesion of liver (07/04/13) Nasal polyp (10/24/08) Osteopenia (01/05/11) Paraesophageal hernia (04/01/16) 04/01/16-[facility] [place] Sleep apnea (01/26/17) CANNOT TOLERATE MOUTH APPLIANCE Steroid side effects (02/04/16) Vitamin D deficiency (03/03/16) Surgical History Colonoscopy - MAC (~2001) NEG EGD - MAC + GERD Extraction of cataract Hernia repair 04/10 History of cataract removal with insertion of prosthetic lens History of nasal polypectomy (12/25/13) Gurjit Fundoplication 04/10 POLYPECTOMY Family History Mother Essential hypertension PACEMAKER Heart disease Skin cancer Father , 46 Diabetes Essential hypertension Heart disease Brother Diabetes Hyperlipidemia Maternal Aunt Diabetes Brother Diabetes Heart disease Depression Brother Arthritis Paternal Grandfather , 60s Diabetes Maternal Grandfather , 90s Diabetes Maternal Grandmother , 97 No problems noted. Paternal Grandmother , 80s No problems noted. Brother No problems noted. Brother No problems noted. Social History Smoking/Tobacco Use Status: Former Tobacco Use Quit Date: 07/23/1968 Tobacco: How many years used: 2 Second Hand Exposure: Yes Smoking risk assessment performed?: Yes Alcohol Intake: never Drug use: Never Substance use type: does not use Counseling given: No Counseling provided: none Caregiver/Support person: No Household members: spouse Housing: house Communication Needs: None Do you need help understanding health information?: Rarely Pets and animals: Yes Pets and animals: cat(s) Sexually active: Yes Do you think of yourself as: straight/heterosexual Current gender identity: female What is your relationship status?: How often do you talk on the phone with friends or family?: twice per week How often do you get together with friends or relatives?: twice per week How often do you attend yarsanism or judaism services?: decline to answer Do you belong to any clubs or organized social groups?: no Panel score (0-1 are the most socially isolated patients): 2 What type of physical activity do you participate in: walking Duration: 60-90 minutes/day Frequency: 1-2 times per week Arabella/Christianity: Shinto Special arabella needs: No Seatbelt use: always Helmet use: No Drive intox or ride w/intox 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: No Do you feel safe at home: Yes Do you feel safe in your relationship?: Yes History History 1 Para Hx # Term Pregnancies Multiple births Hx # Pregnancies Ectopic pregnancies AB induced Hx Number of Living Children AB spontaneous Meds Allergies and Home Medications Allergies Allergy/AdvReac Type Severity Reaction Status Date / Time sulfite Allergy Unknown ASTHMA Verified 12/27/20 12:03 Home Medications Medication Instructions Recorded Confirmed Type cholecalciferol (vitamin D3) 5,000 unit PO DAILY 05/04/16 12/27/20 History ej-kyk-kvdhd acid-lutein 2 ea PO DAILY tab.chew 05/04/16 12/27/20 History citalopram 20 mg tablet 20 mg PO DAILY #90 tab-cap 04/03/20 12/27/20 Rx fluticasone propionate 50 2 spray NS DAILY #29.6 ml 04/03/20 12/27/20 Rx mcg/actuation nasal spray,suspension levalbuterol tartrate 45 2 puff INHALATION QID PRN #4 07/10/20 12/27/20 Rx mcg/actuation aerosol inhaler inhaler montelukast 10 mg tablet 10 mg PO DAILY #90 tab-cap 07/10/20 12/27/20 Rx prednisone 5 mg tablet 5 mg PO DAILY PRN #90 tab 12/03/20 12/27/20 Rx amoxicillin-pot clavulanate 1 tab PO BID 7 Days #14 tab 12/25/20 12/27/20 Rx [Augmentin] Exam Const General: no acute distress Orientation: alert HENMT Head: normal to inspection Mouth: moist mucous membranes Eyes General: appearance normal, both eyes and all related structures Neck Neck: full ROM Resp Effort & Inspection: normal respiratory effort and able to speak in complete sentences Cardio Rate: regular rate Skin General skin exam: no rashes or lesions noted Neuro General: patient alert and patient oriented x3 Extrem General: normal to inspection Psych Mental Status: mental status grossly normal Results Labs Result diagrams: 12/27/20 12:40 12/27/20 12:40 Labs: Laboratory Results - last 24 hr 12/27/20 12/27/20 12/27/20 12:40 12:40 14:50 WBC 17.95 H RBC 4.37 Hgb 13.7 Hct 41.5 MCV 95.0 MCH 31.4 MCHC 33.0 RDW 13.1 Plt Count 337 MPV 8.8 Immature Gran % 0.6 Neutrophils % 78.4 Lymphocytes % 9.7 Monocytes % 10.6 Eosinophils % 0.4 Basophils % 0.3 Nucleated RBC % 0 Absolute Neutrophils 14.07 H Absolute Lymphocytes 1.74 Absolute Monocytes 1.90 H Absolute Eosinophils 0.07 Absolute Basophils 0.05 RBC Morphology Normal Sodium 136 Potassium 3.9 Chloride 97 L Carbon Dioxide 30.2 Anion Gap 8.8 BUN 10 Creatinine 0.8 Estimated GFR/1.73 m2 >= 60.00 Glucose 120 H Calcium 9.4 Total Bilirubin 0.8 AST 16 ALT 24 Alkaline Phosphatase 59 Total Protein 7.6 Albumin 3.6 COVID-19 Source Nasal/Nares Last Vital Signs Temp 36.6 C 12/27/20 15:29 Pulse 95 H 12/27/20 15:29 Resp 16 12/27/20 15:29 BP 154/90 H 12/27/20 15:29 Pulse Ox 94 12/27/20 15:29
[2020-12-27] MEDS: Enoxaparin 40 MG/0.4 ML SYR SC (17:21)
[2020-12-27 20:54] LABS: COVID-19 PCR Negative (Negative)
[2020-12-27] MEDS: PIPERACILLIN/TAZO 3.375 GM in Normal Saline 50 ML IVPB (21:19)
[2020-12-27] MEDS: Melatonin 3 MG TAB PO (21:19)
[2020-12-27 23:40] VITALS: BP 145/81; PULSE 95; RESP 18; TEMP 36.6; O2SAT 94
[2020-12-28] MEDS: PIPERACILLIN/TAZO 3.375 GM in Normal Saline 50 ML IVPB ×3 (01:45→14:55)
[2020-12-28] MEDS: Normal Saline Flush 10 ML SYR IVP ×3 (01:45→22:55)
[2020-12-28] MEDS: Levalbuterol HFA 15 GM INH 2 PUFF IH ×2 (05:45→19:42)
[2020-12-28 07:25] VITALS: BP 136/74; PULSE 92; RESP 16; TEMP 37.4; O2SAT 91
[2020-12-28 07:43] LABS: Abs Immature Grans 0.09 10^3/uL (0.0-0.06); Absolute Basophil Count 0.03 10^3/uL (0.0-0.2); Absolute Monocyte Count 1.26 10^3/uL (0.1-0.8); Absolute Neutrophil Count 13.18 10^3/uL (1.2-6.7); Basophils % 0.2; HCT 39.1 % (36.0-46.0); HGB 12.9 g/dL (11.2-15.7); Immature Grans % 0.6; Lymphocytes % 6.1; Monocytes % 8.1; Nucleated RBC 0 %; Platelet Count 343 10^3/uL (130-400); RBC 4.16 10^6/uL (3.93-5.22); RDW 13.2 % (11.7-14.6); RDW-SD 45.5 fL
[2020-12-28 07:44] LABS: Absolute Lymphocyte Count 0.95 10^3/uL (1.2-3.4)
[2020-12-28 08:07] LABS: Anion Gap 9.5 mmol/L (3-11); BUN 14 mg/dL (7-18); CO2 27.5 mmol/L (21.0-32.0); CREATININE 0.8 mg/dL (0.55-1.02); Calcium 9.3 mg/dL (8.5-10.1); Chloride 101 mmol/L (98-107); Glucose 151 mg/dL (74-106); Potassium 4.3 mmol/L (3.5-5.1); Sodium 138 mmol/L (136-145)
[2020-12-28] MEDS: Fluticasone NASAL SPRAY 16 GM BTL NS (09:33)
--- NOTE | 2020-12-28 14:33 | PDOC.CMIN ---
- If Service Date Differs Date of service: 12/28/20 Time of Service: 14:33 Care Management Initial Assess REASON FOR HOSPITALIZATION:: Sialednitis, Dehydration PAST MEDICAL HISTORY/PAST SURGICAL HISTORY:: Anticoagulated on warfarin. Anxiety. Asthma (01/05/11). severe. Depressive disorder. Gastroesophageal reflux disease (01/05/11). per E[place] at [facility] [place] Neg. [place]oscopy. Hiatal hernia. 08/19/15-MEDIUM SIZED ([facility] [place] History of pulmonary embolus (PE) (06/22/13). 06/22/13. History of pulmonary embolus (PE) (06/22/13). Lesion of liver (07/04/13). Nasal polyp (10/24/08). Osteopenia (01/05/11). Paraesophageal hernia (04/01/16). 04/01/16[place] [place]. Sleep apnea (01/26/17). CANNOT TOLERATE MOUTH APPLIANCE. Steroid side effects (02/04/16). Vitamin D deficiency (03/03/16). Colonoscopy - MAC (~2001). NEG. EGD - MAC. + GERD. Extraction of cataract. Hernia repair. 04/10. History of cataract removal with insertion of prosthetic lens. History of nasal polypectomy (12/25/13). Gurjit Fundoplication. 04/10. POLYPECTOMY PREVIOUS FUNCTIONAL STATUS/SOCIAL/FAMILY SUPPORTS:: Yelitza resides in [facility] with her , Juancho. She is independent at baseline in the community. CURRENT FUNCTIONAL STATUS:: Yelitza is up independently in her room, and pleasant in interaction. ADVANCE DIRECTIVES:: [employer] form on file-Juancho as agent Has patient been provided with info about the portal/API?: Yes Did the patient sign up for the portal?: Yes (Previously) CODE STATUS:: Full Code INSURANCE COVERAGE / FINANCIAL ISSUES:: Medicare. [employer] CURRENT HOME/COMMUNITY SERVICES/EQUIPMENT:: None, currently. PRIMARY CARE PHYSICIAN:: Venice Mcdonnell DO POTENTIAL DISCHARGE NEEDS:: Follow up appointments. PATIENT/FAMILY EDUCATION NEEDS:: Review of discharge instructions, discuss Ask Me Three. ANTICIPATED BARRIERS TO DISCHARGE:: None identified. TRANSPORTATION:: Via private vehicle with . PLAN:: Yelitza will return when medically cleared, per MD. She will follow up with her PCP and plan of care as prescribed. She will transport via private vehicle with her .
--- NOTE | 2020-12-28 15:18 | W.PM.PROGNOT ---
Date of Service Date of service: 12/28/20 Time of Service: Assessment and Plan Assessment and plan (1) Sialadenitis: Start date: 12/28/20 Start time: Status: Acute Assessment and plan: failed outpatient treatment with augmentin. stone dislodged with pus and blood following, patient threw stone away Severe submandibular lymphadenopathy with tenderness. Will switch from zosyn to clinidmycin 600 mg q 8 hours per recommendation of lulu guide no abscess on CT scan received decadron in ED will consult ENT, at this time patient voice is hoarse and she is severely swollen on left side, it is better she continues to be monitored on IV antibiotics (2) Vitamin D deficiency: Start date: 12/28/20 Start time: Status: Chronic Assessment and plan: continue supplementation (3) Asthma: Start date: 12/28/20 Start time: Status: Chronic Assessment and plan: stable, (4) DVT prophylaxis: Start date: 12/28/20 Start time: Status: Acute Assessment and plan: enoxaparin 40 mg (5) Discharge planning issues: Start date: 12/28/20 Start time: Status: Acute Assessment and plan: Home when medically stable. Discussed with Dr. Breaux Subjective Subjective Patient reports: still having pain Interval history since last seen: Sitting up in chair. States she was able to get stone out last night it was about the size of a pill, she threw it away in garbage. Sore throat, though she asked for regular diet with ability to choose what she wanted for soft foods. This is reasonable. Severe lyphadenoapathy to submandibular on the left side. She is agreeable to staying. Will continue IV antibiotics, monitor Leukocytosis, possibly stay through Wednesday and have Dr. Gordillo see her if she continues. She did state, pus and blood did express with the stone, given severity of swelling, it would be in her best interest to stay for IV antibiotics at this point especially since she is having difficulty with swallowing, she does have harsh voice and sore throat. She denies CP, sOB, N/V/D. Exam Const General: no acute distress Orientation: alert HENMT Head: normal to inspection Mouth: moist mucous membranes Eyes General: appearance normal, both eyes and all related structures Neck Neck: full ROM, lymphadenopathy noted (severe submandibular lymphadenopathy to left side with hoarsh voice ) and lymphadenopathy left anterior cervical hard, fixed, warm and tender, left submandibular hard, fixed, warm and tender; not mobile Lymphatic: lymphedema Chest Chest: normal inspection of the chest Resp Effort & Inspection: normal respiratory effort and able to speak in complete sentences Auscultation: clear to auscultation bilaterally Cardio Jugular venous pressure: no JVD Rate: regular rate Rhythm: regular rhythm GI Inspection: normal to inspection Auscultation: normal bowel sounds Skin General skin exam: no rashes or lesions noted Lesions: no lesions Rashes: no rashes Trauma: no lacerations or abrasions Neuro General: patient alert, patient awake and patient oriented x3 Extrem General: normal to inspection and full ROM Psych Appearance: grossly normal Mental Status: mental status grossly normal Speech and Movement: speech and movement normal Mood: congruent mood Affect: normal affect Attitude: cooperative Thought Process: normal Thought Content: normal Insight: insight good Judgment: judgment good Objective Last Vital Signs Temp 37.4 C 12/28/20 07:25 Pulse 92 H 12/28/20 07:25 Resp 16 12/28/20 07:25 BP 136/74 12/28/20 07:25 Pulse Ox 91 L 12/28/20 07:25 Laboratory Results - last 24 hr 12/27/20 12/28/20 12/28/20 14:50 07:25 07:25 WBC 15.50 H RBC 4.16 Hgb 12.9 Hct 39.1 MCV 94.0 MCH 31.0 MCHC 33.0 RDW 13.2 Plt Count 343 MPV 9.0 Immature Gran % 0.6 Neutrophils % 85.0 Lymphocytes % 6.1 Monocytes % 8.1 Eosinophils % 0.0 Basophils % 0.2 Nucleated RBC % 0 Absolute Neutrophils 13.18 H Absolute Lymphocytes 0.95 L Absolute Monocytes 1.26 H Absolute Eosinophils 0.00 Absolute Basophils 0.03 Sodium 138 Potassium 4.3 Chloride 101 Carbon Dioxide 27.5 Anion Gap 9.5 BUN 14 Creatinine 0.8 Estimated GFR/1.73 m2 >= 60.00 Glucose 151 H Calcium 9.3 SARS-CoV-2 (PCR) Negative
[2020-12-28 15:32] VITALS: BP 126/70; PULSE 85; RESP 18; TEMP 37; O2SAT 94
[2020-12-28] MEDS: Enoxaparin 40 MG/0.4 ML SYR SC (16:14)
[2020-12-28] MEDS: CLINDAMYCIN 600 MG/50 ML BAG 100 MG IVPB ×2 (16:46→23:00)
[2020-12-28] MEDS: Dexamethasone 10 MG/ML VIAL IVP ×2 (17:43→23:00)
[2020-12-28] MEDS: Montelukast 10 MG TAB PO (19:41)
[2020-12-28] MEDS: Citalopram 20 MG TAB PO (19:41)
[2020-12-28] MEDS: Melatonin 3 MG TAB PO (22:55)
[2020-12-28 23:10] VITALS: BP 129/80; PULSE 79; RESP 18; TEMP 36.9; O2SAT 93
[2020-12-29] MEDS: Dexamethasone 10 MG/ML VIAL IVP ×3 (05:27→21:37)
[2020-12-29] MEDS: Normal Saline Flush 10 ML SYR IVP ×4 (05:27→21:38)
[2020-12-29 07:06] LABS: Abs Immature Grans 0.06 10^3/uL (0.0-0.06); Absolute Lymphocyte Count 0.54 10^3/uL (1.2-3.4); Absolute Monocyte Count 0.24 10^3/uL (0.1-0.8); Absolute Neutrophil Count 6.88 10^3/uL (1.2-6.7); HCT 37.3 % (36.0-46.0); HGB 12.4 g/dL (11.2-15.7); Immature Grans % 0.8; MCH 31.2 pg (27.0-33.0); MCHC 33.2 % (32.0-36.0); Monocytes % 3.1; Neutrophils % 89.1; Nucleated RBC 0 %; Platelet Count 345 10^3/uL (130-400); RBC 3.97 10^6/uL (3.93-5.22); RDW 12.9 % (11.7-14.6); RDW-SD 45.1 fL; WBC 7.72 10^3/uL (4.4-10.8)
[2020-12-29 07:31] LABS: Anion Gap 9.9 mmol/L (3-11); BUN 15 mg/dL (7-18); C-Reactive Protein 12.73 mg/dL (0.0-0.3); CO2 27.1 mmol/L (21.0-32.0); CREATININE 0.7 mg/dL (0.55-1.02); Calcium 9.1 mg/dL (8.5-10.1); Chloride 103 mmol/L (98-107); Glucose 172 mg/dL (74-106); Magnesium 2.3 mg/dL (1.8-2.4); Potassium 4.4 mmol/L (3.5-5.1); Sodium 140 mmol/L (136-145)
[2020-12-29 08:03] VITALS: BP 160/97; PULSE 73; RESP 18; TEMP 36.1; O2SAT 91
[2020-12-29] MEDS: Budesonide/Formoterol 160/4.5 6 GM 60 PUFF INH IH ×2 (08:48→21:39)
[2020-12-29] MEDS: Levalbuterol HFA 15 GM INH 2 PUFF IH (08:48)
[2020-12-29] MEDS: CLINDAMYCIN 600 MG/50 ML BAG 100 MG IVPB ×3 (08:48→23:52)
[2020-12-29] MEDS: Fluticasone NASAL SPRAY 16 GM BTL NS (08:48)
--- NOTE | 2020-12-29 12:16 | W.PM.PROGNOT ---
Date of Service Date of service: 12/29/20 Time of Service: 12:17 Assessment and Plan Assessment and plan (1) Sialadenitis: Start date: 12/29/20 Start time: 12:19 Status: Acute Assessment and plan: failed outpatient treatment with augmentin. stone dislodged with pus and blood following, yesterday patient threw stone away Severe submandibular adenopathy with tenderness. Patient states she feels much better, however severe swelling still CRP is 12.7 clinidmycin 600 mg q 8 hours per recommendation of lawson guide no abscess on CT scan, however will obtain u/s tomorrow. continue decadron will consult ENT, at this time patient voice is hoarse and she is severely swollen on left side, it is better she continues to be monitored on IV antibiotics NPO after MN (2) Vitamin D deficiency: Start date: 12/29/20 Start time: 12:19 Status: Chronic Assessment and plan: continue supplementation (3) Asthma: Start date: 12/29/20 Start time: 12:19 Status: Chronic Assessment and plan: stable, continue home meds (4) DVT prophylaxis: Start date: 12/29/20 Start time: 12:19 Status: Acute Assessment and plan: enoxaparin 40 mg (5) Discharge planning issues: Start date: 12/29/20 Start time: 12:19 Status: Acute Assessment and plan: Home when medically stable. Discussed with Dr. Breaux Subjective Subjective Patient reports: feels better Interval history since last seen: feeling better however still swelling to submandibular left side with painful swallowing. Will continue IV antibiotic, continue decadron, consult Dr. Gordillo, ENT. Exam Const General: no acute distress Orientation: alert [facility] Head: normal to inspection Mouth: moist mucous membranes Eyes General: appearance normal, both eyes and all related structures Neck Neck: full ROM, lymphadenopathy noted (severe submandibular lymphadenopathy to left side with hoarsh voice ) and lymphadenopathy Lymphatic: lymphedema Chest Chest: normal inspection of the chest Resp Effort & Inspection: normal respiratory effort and able to speak in complete sentences Auscultation: clear to auscultation bilaterally Cardio Jugular venous pressure: no JVD Rate: regular rate Rhythm: regular rhythm GI Inspection: normal to inspection Auscultation: normal bowel sounds Skin General skin exam: no rashes or lesions noted Lesions: no lesions Rashes: no rashes Trauma: no lacerations or abrasions Neuro General: patient alert, patient awake and patient oriented x3 Extrem General: normal to inspection and full ROM Psych Appearance: grossly normal Mental Status: mental status grossly normal Speech and Movement: speech and movement normal Mood: congruent mood Affect: normal affect Attitude: cooperative Thought Process: normal Thought Content: normal Insight: insight good Judgment: judgment good Objective Last Vital Signs Temp 36.1 C L 12/29/20 08:03 Pulse 73 12/29/20 08:03 Resp 18 12/29/20 08:03 BP 160/97 H 12/29/20 08:03 Pulse Ox 91 L 12/29/20 08:03 Laboratory Results - last 24 hr 12/29/20 12/29/20 06:38 06:38 WBC 7.72 D RBC 3.97 Hgb 12.4 Hct 37.3 MCV 94.0 MCH 31.2 MCHC 33.2 RDW 12.9 Plt Count 345 MPV 9.0 Immature Gran % 0.8 Neutrophils % 89.1 Lymphocytes % 7.0 Monocytes % 3.1 Eosinophils % 0.0 Basophils % 0.0 Nucleated RBC % 0 Absolute Neutrophils 6.88 H Absolute Lymphocytes 0.54 L Absolute Monocytes 0.24 Absolute Eosinophils 0.00 Absolute Basophils 0.00 Sodium 140 Potassium 4.4 Chloride 103 Carbon Dioxide 27.1 Anion Gap 9.9 BUN 15 Creatinine 0.7 Estimated GFR/1.73 m2 >= 60.00 Glucose 172 H Calcium 9.1 Magnesium 2.3 C-Reactive Protein 12.73 H
[2020-12-29 15:07] VITALS: BP 141/84
[2020-12-29] MEDS: Enoxaparin 40 MG/0.4 ML SYR SC (16:03)
[2020-12-29 16:13] VITALS: BP 147/82; PULSE 78; RESP 18; TEMP 36.4; O2SAT 96
[2020-12-29] MEDS: Montelukast 10 MG TAB PO (21:37)
[2020-12-29] MEDS: Melatonin 3 MG TAB PO (21:37)
[2020-12-29] MEDS: Citalopram 20 MG TAB PO (21:37)
[2020-12-29] MEDS: Normal Saline 500 ML 100 ML IV (23:49)
[2020-12-30 00:22] VITALS: BP 144/88; PULSE 65; RESP 18; TEMP 36.3; O2SAT 94
[2020-12-30] MEDS: Normal Saline Flush 10 ML SYR IVP (05:59)
[2020-12-30] MEDS: Dexamethasone 10 MG/ML VIAL IVP (05:59)
[2020-12-30 07:18] VITALS: BP 154/84; PULSE 69; RESP 18; TEMP 36.3; O2SAT 92
[2020-12-30 07:26] LABS: Abs Immature Grans 0.08 10^3/uL (0.0-0.06); Absolute Basophil Count 0.01 10^3/uL (0.0-0.2); Absolute Monocyte Count 0.53 10^3/uL (0.1-0.8); Basophils % 0.1; HCT 36.6 % (36.0-46.0); HGB 12.1 g/dL (11.2-15.7); Immature Grans % 0.7; Lymphocytes % 6.3; MCHC 33.1 % (32.0-36.0); MCV 93.8 fL (80-95); MPV 9.3 fL (8.0-11.0); Monocytes % 4.7; Neutrophils % 88.2; Nucleated RBC 0 %; Platelet Count 357 10^3/uL (130-400); RDW-SD 44.8 fL; WBC 11.34 10^3/uL (4.4-10.8)
[2020-12-30 07:30] LABS: Absolute Lymphocyte Count 0.71 10^3/uL (1.2-3.4)
--- NOTE | 2020-12-30 07:30 | DI.US_ITS ---
Exam(s) US SOFT TISSUE HEAD OR NECK EXAM: US SOFT TISSUE HEAD OR NECK CLINICAL HISTORY: tonsil stones, severe submadibular adneopathy. TECHNIQUE: Ultrasound was performed using standard protocol. COMPARISON: CT CT NECK W from 12/27/[address] NECK W from 12/27/2020 FINDINGS: Sonographic assessment utilizing grayscale and color Doppler imaging was performed and targeted to th e area of clinical concern. Left: The left submandibular gland measures 2.7 x 1.4 x 4 cm. The left submandibular gland duct mary ann ures 3 mm in diameter. There are a few stones seen within the duct. The largest measures 2.3 mm. T he 9 mm stone seen on the CT scan is not visualized and may have been passed. Right: The right submandibular gland measures 2.2 x 0.9 x 3.1 cm. No stones are seen. The right sub mandibular duct does measure 3.0 mm. IMPRESSION: 1. Interval decrease in size of the submandibular gland ducts compared to the CT scan from 12/27/2020. 2. Persistent left submandibular gland ductal stones. The largest stone on the CT scan is not visual ized and may have been passed. DATA REPOSITORY:
[2020-12-30 08:45] LABS: Anion Gap 10.6 mmol/L (3-11); BUN 23 mg/dL (7-18); CO2 26.4 mmol/L (21.0-32.0); CREATININE 0.8 mg/dL (0.55-1.02); Calcium 9.1 mg/dL (8.5-10.1); Chloride 102 mmol/L (98-107); Glucose 168 mg/dL (74-106); Sodium 139 mmol/L (136-145)
[2020-12-30] MEDS: CLINDAMYCIN 600 MG/50 ML BAG 100 MG IVPB (08:46)
[2020-12-30] MEDS: Cholecalciferol (Vitamin D3) 1,000 UNIT TAB 5000 UNITS PO (08:46)
[2020-12-30] MEDS: Multivitamin w/Minerals TAB 2 TAB PO (08:46)
--- NOTE | 2020-12-30 09:23 | PDOC.CMPRO ---
- If Service Date Differs Date of service: 12/30/20 Time of Service: 09:23 Care Management Progress Note S/O: Yelitza will have an ultrasound today as well as an ENT consult with Dr. Ragsdale, per MD. Consults and results to inform treatment planning. CM continues to follow. A: 70 year old female admitted to [facility] 12/27/20 for Sialednitis, dehydration P: Yelitza will return when medically cleared, per MD. She will follow up with her PCP and plan of care as prescribed. She will transport via private vehicle with her .
--- NOTE | 2020-12-30 10:47 | DSE_ITS ---
Date of service: 12/30/20 Time of Service: 10:48 DS: Diagnosis Discharge Diagnosis (1) Sialadenitis: Status: Acute (2) Vitamin D deficiency: Status: Chronic (3) Asthma: Status: Chronic Discharge Plan Disposition Patient Disposition: HOME Condition: Stable Discharge Details Reason For Visit: Sialednitis, Dehydration Admit Date/Time: 12/27/20 14:18 Admit Provider: Ramses Nieto Attending Provider: Ramses Nieto Primary Care Provider: Venice Mcdonnell [facility] Course Hospital Course: This is a 70 year old female who presented to the ED with Left submandibular swelling and pain, diagnosed with sialadenitis and discharged home on augmentin. she returned with ongoing symptoms. she was admitted on IV antibiotics and ENT consult placed. Her symptoms began improving and was not having any increased swelling with eating. She was seen by Dr Gordillo and recommendations to discharge home on clindamycin 300 mg qid for 7 days. she was instructed to continue submandibular massage, use sialagogues several times per day, and she will f/u outpatient in his clinic in 2 weeks, advised to return sooner for new or worsening symptoms discharge discussed with Dr Breaux Home Meds and New Rx's Prescriptions: New clindamycin HCl 300 mg capsule 300 mg PO QID Qty: 28 RF: 0 Continued cholecalciferol (vitamin D3) 5,000 UNIT capsule 5,000 unit PO DAILY RF: 0 [id number]-knwoq acid-lutein 1 EACH tablet,chewable 2 ea PO DAILY RF: 0 citalopram [Celexa] 20 mg tablet 20 mg PO DAILY Qty: 90 RF: 12 fluticasone propionate 50 mcg/actuation spray,suspension 2 spray NS DAILY Qty: 29.6 RF: 4 levalbuterol tartrate [Xopenex HFA] 45 mcg/actuation HFA aerosol inhaler 2 puff Inhalation QID PRN (Reason: shortness of breath) Qty: 4 RF: 5 montelukast 10 mg tablet 10 mg PO DAILY Qty: 90 RF: 4 prednisone 5 mg tablet 5 mg PO DAILY PRN (Reason: asthma) Qty: 90 RF: 1 budesonide-formoterol [Symbicort] 160-4.5 mcg/actuation HFA aerosol inhaler 2 inh INHALATION BID RF: 0 Discontinued amoxicillin-pot clavulanate [Augmentin] 875-125 mg tablet 1 tab PO BID 7 Days Qty: 14 RF: 0 Discharge Instructions Instructions: Dehydration (DC), Sialoadenitis (ED) Additional Instructions: continue submandibular massage, use sialagogues several times per day as instructed. drink at least 6-8 glasses of water daily to stay well hydrated. Stand Alone Forms: Nursing Discharge Form Referrals: Jorge Alberto Gordillo MD [ [facility] STAFF PHYSICIAN] - 01/13/21 10:45 am Activity:: Activity as Tolerated Equipment/Supplies:: No Equipment Needed Diet:: As Tolerated Discharge Orders Discharge Orders: Discharge Order (Routine); Ordered 12/30/20 Ordered By: Porsche Vale Discharge Data Discharge Date/Time-TO BE ENTERED AT DEPARTURE: 12/30/20 15:52 DS: Summary Time Spent with Patient providing and/or coordinating discharge services: Less than 30 minutes Status at Discharge Functional status at discharge: independent ambulation Overall status at discharge: patient is progressing back to baseline Mental Status: mental status grossly normal Speech and Movement: speech and movement normal Mood: congruent mood Affect: normal affect Exam Const General: no acute distress Orientation: alert HENMT Head: normal to inspection Mouth: moist mucous membranes Eyes General: appearance normal, both eyes and all related structures Neck Neck: full ROM Resp Effort & Inspection: normal respiratory effort and able to speak in complete sentences Cardio Rate: regular rate Skin General skin exam: no rashes or lesions noted Neuro General: patient alert and patient oriented x3 Extrem General: normal to inspection Psych Mental Status: mental status grossly normal Speech and Movement: speech and movement normal Mood: congruent mood Affect: normal affect DS: Data Vitals/I&O Vitals and I&O: Vital Signs Temperature 36.3 C L 12/30/20 07:18 Temperature Source Tympanic 12/30/20 07:18 Pulse 69 12/30/20 07:18 Pulse Rhythm Regular 12/30/20 05:43 Respiratory Rate 18 12/30/20 07:18 Respiratory Effort Non-Labored 12/30/20 05:43 Respiratory Depth Normal 12/30/20 05:43 Respiratory Pattern Irregular 12/30/20 05:43 Blood Pressure 154/84 H 12/30/20 07:18 Blood Pressure Position Sitting 12/27/20 12:01 Pulse Oximetry 92 12/30/20 07:18 Oxygen Delivery Method Room Air 12/30/20 07:18 Oxygen Flow Rate 0 12/30/20 07:18 Pain Level 0 12/30/20 07:18 Comment 12/29/20 15:07 Intake & Output 12/29/20 12/29/20 12/30/20 11:59 23:59 11:59 Intake Total 790 / 840 100 / 100 Output Total 600 / 1600 600 / 600 Balance 190 / -760 -500 / -500 Intake: IV 50 / 100 100 / 100 Oral 740 / 740 Output: Urine 600 / 1600 600 / 600 Other: Urine Color Straw Straw Urine Appearance Clear Clear Urine Odor Normal Normal Comment Stool Size Moderate Voiding Methods Toilet Toilet Data Completed and Pending Labs on day of discharge: Labs from last 24 hours 12/30/20 12/30/20 06:44 06:44 WBC 11.34 H D RBC 3.90 L Hgb 12.1 Hct 36.6 MCV 93.8 MCH 31.0 MCHC 33.1 RDW 13.0 Plt Count 357 MPV 9.3 Immature Gran % 0.7 Neutrophils % 88.2 Lymphocytes % 6.3 Monocytes % 4.7 Eosinophils % 0.0 Basophils % 0.1 Nucleated RBC % 0 Absolute Neutrophils 10.00 H Absolute Lymphocytes 0.71 L Absolute Monocytes 0.53 Absolute Eosinophils 0.00 Absolute Basophils 0.01 Sodium 139 Potassium 5.0 Chloride 102 Carbon Dioxide 26.4 Anion Gap 10.6 BUN 23 H Creatinine 0.8 Estimated GFR/1.73 m2 >= 60.00 Glucose 168 H Calcium 9.1 PFSH Medical History Anticoagulated on warfarin Anxiety Asthma (01/05/11) severe Depressive disorder Gastroesophageal reflux disease (01/05/11) per EGD at [facility] [place]; Neg. colonoscopy Hiatal hernia 08/19/15-MEDIUM SIZED (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 [place] Sleep apnea (01/26/17) CANNOT TOLERATE MOUTH APPLIANCE Steroid side effects (02/04/16) Vitamin D deficiency (03/03/16) Surgical History Colonoscopy - MAC (~2001) NEG EGD - MAC + GERD Extraction of cataract Hernia repair 04/10 History of cataract removal with insertion of prosthetic lens History of nasal polypectomy (12/25/13) Gurjit Fundoplication 04/10 POLYPECTOMY Family History Mother Essential hypertension PACEMAKER Heart disease Skin cancer Father , 46 Diabetes Essential hypertension Heart disease Brother Diabetes Hyperlipidemia Maternal Aunt Diabetes Brother Diabetes Heart disease Depression Brother Arthritis Paternal Grandfather , 60s Diabetes Maternal Grandfather , 90s Diabetes Maternal Grandmother , 97 No problems noted. Paternal Grandmother , 80s No problems noted. Brother No problems noted. Brother No problems noted. Social History Smoking/Tobacco Use Status: Former Tobacco Use Quit Date: 07/23/1968 Tobacco: How many years used: 2 Second Hand Exposure: Yes Smoking risk assessment performed?: Yes Alcohol Intake: never Drug use: Never Substance use type: does not use Counseling given: No Counseling provided: none Caregiver/Support person: No Household members: spouse Housing: house Communication Needs: None Do you need help understanding health information?: Rarely Pets and animals: Yes Pets and animals: cat(s) Sexually active: Yes Do you think of yourself as: straight/heterosexual Current gender identity: female What is your relationship status?: How often do you talk on the phone with friends or family?: twice per week How often do you get together with friends or relatives?: twice per week How often do you attend restoration or christianity services?: decline to answer Do you belong to any clubs or organized social groups?: no Panel score (0-1 are the most socially isolated patients): 2 What type of physical activity do you participate in: walking Duration: 60-90 minutes/day Frequency: 1-2 times per week Arabella/Christian: Nondenominational Special arabella needs: No Seatbelt use: always Helmet use: No Drive intox or ride w/intox trailer driver: No Do you feel safe at home: Yes Do you feel safe in your relationship?: Yes History History 1 Para Hx # Term Pregnancies Multiple births Hx # Pregnancies Ectopic pregnancies AB induced Hx Number of Living Children AB spontaneous
--- NOTE | 2020-12-30 13:44 | PDOC.CMDIS ---
- If Service Date Differs Date of service: 12/30/20 Time of Service: 13:44 LACE Index Scoring Tool - Questions: Length of Stay (in days): 3 Acuity (Admit via E.D.?): Yes E.D. Visits: 2 - Answers: Total Score: 8 Risk of Readmission: Low Risk Care Management Discharge Reason for Hospitalization: Sialednitis, Dehydration Discharge Plan: Yelitza was sitting up in her chair when CM met with her-she shared no concerns about discharge and contact information for follow up if needed-was reviewed. Yelitza will return when medically cleared, per MD. She will have a new prescription for oral antibiotics, follow up with her PCP as well as Dr. Ragsdale in two weeks. She will transport via private vehicle with her . Patient/Family Education Needs: Review discharge instructions, discuss Ask Me Three.
--- NOTE | 2020-12-30 14:14 | OPPNE_ITS ---
Date of service: 12/30/20 Time of Service: 10:00 Procedure Note Inpatient consult: Requested by Dr. Breaux History of present illness: The patient notes that on , she developed left submandibular swelling, and felt a small mass under her tongue. She was seen and evaluated in the emergency room, and the area was examined revealing salivary stones. Apparently fragments of stones were removed, and the area was vacuumed. She was placed on Augmentin and sent home with appropriate directio ns. On Wednesday, with worsening symptoms, she presented back to the emergency room, with significant swelling. She underwent CT scan of the neck which revealed multiple sialoliths within the left submandibular duct. The largest measured 8 mm. She was hospitalized for hydration, antibiotics, and pain control. She has been on clindamycin IV, and over the weekend, expressed the most anterior stone. Since then, she notes that the swelling has been going down in her left submandibular gland and she has had several small pieces of stone expressed. She notes no further purulent taste in her mouth. She notes no xerostomia. She does have good free water intake. She has no history of salivary stones in the past. She does have a history of cat scratch disease involving her left submandibular gland per her report. This is a distant history. She notes that the gland is not swelling when she eats. She has not been febrile. She notes no other concerns. Examination: Awake alert and oriented x3. In no acute distress. Voice is strong with no stridor or stertor. There is no muffled or marble mouth quality to her speech. She does not appearing any discomfort. HEENT: Normocephalic with a normal facies with cranial nerves II through XII bilateral equal and intact. Neck is supple with a full range of motion without any lymphadenopathy. Bilateral parotid glands palpate normally, while the right submandibular gland palpates normally. Left submandibular gland is slightly enlarged, and mildly tender with no fluctuance, or overlying erythema, induration, or warmth. There is no edema. Clear saliva can be expressed through the left submandibular duct. There are no definitively palpable stones within the left submandibular duct. Teeth are in good repair. Tongue has normal mobility. Oropharynx is unremarkable. Airway is stable. Heart is rate regular rhythm. Assessment: Left submandibular sialolithiasis with secondary sialoadenitis, now resolving following expression of the largest obstructive stone Recommendations: As things continue to improve, and she is not having any swelling with eating, I believe she can be discharged on clindamycin at 300 mg 4 times daily for 7 days, and I have instructed her to have good fluid intake, continue submandibular massage, use sialagogues several times per day, and barring any interval problems, she will follow up with me in 2 weeks time. Hopefully the remaining stones will flush from her gland and no further treatment will be necessary, but only time will tell. If she gets a recurrence of the swelling, she may proceed to the emergency room if I am unavailable. If this continues to be problematic, and we cannot extract the stones, she may need submandibular gland excision. Hopefully this will not be the case. She had no further questions. This was discussed with Dr. Breaux
== END 2020-12-30 15:52 | disposition home or self-care (01) | DRG 156 ==
LOC: ER 15:16 → MS 15:18
PROVIDERS: Internal Medicine; Nurse Practitioner Acute Care; Nurse Practitioner Family; Admitting Provider Internal Medicine; Emergency Provider Emergency Medicine; PCP Family Medicine; Visit Provider Internal Medicine
DX: K11.20 Sialoadenitis, unspecified (principal); E55.9 Vitamin D deficiency, unspecified; J45.909 Unspecified asthma, uncomplicated; Z20.822 Contact with and (suspected) exposure to COVID-19; K11.5 Sialolithiasis; Z79.01 Long term (current) use of anticoagulants; F41.9 Anxiety disorder, unspecified; F32.A Depression, unspecified; K21.9 Gastro-esophageal reflux disease without esophagitis; Z86.711 Personal history of pulmonary embolism; G47.30 Sleep apnea, unspecified; R59.0 Localized enlarged lymph nodes; R13.10 Dysphagia, unspecified
CPT/HCPCS: 36415; 70491; 76536; 80048; 80053; 87635; 96361; 96365; 96375; 99285; J1650; 83735; 85025; 86140; 99223; 99232; 99238; J1100; J2543; J3010; J3490

== ENCOUNTER 2021-01-31 18:57 | Outpatient (REF) | payer MEDICARE, OTHER, SELFPAY ==
[2021-01-31 20:18] LABS: C Diff PCR Positive (Negative)
[2021-02-03 08:57] LABS: COVID-19 RT-PCR UVMMC Result Positive (Negative)
== END 2021-01-31 18:58 | disposition home or self-care (01) ==
LOC: LBN 18:57
PROVIDERS: PCP Family Medicine; Visit Provider Family Medicine
DX: R19.7 Diarrhea, unspecified (principal); R05.9 Cough, unspecified; Z20.822 Contact with and (suspected) exposure to COVID-19
CPT/HCPCS: 87493; U0003

== ENCOUNTER 2021-02-22 14:42 | Emergency (ER) | payer MEDICARE, SELFPAY ==
[2021-02-22 14:47] VITALS: BP 101/65; PULSE 127; TEMP 37.7; O2SAT 94
[2021-02-22 15:41] LABS: Abs Immature Grans 0.11 10^3/uL (0.0-0.06); Absolute Basophil Count 0.06 10^3/uL (0.0-0.2); Absolute Eosinophil Count 0.04 10^3/uL (0.0-0.7); Absolute Monocyte Count 0.89 10^3/uL (0.1-0.8); Absolute Neutrophil Count 17.31 10^3/uL (1.2-6.7); Basophils % 0.3; Eosinophils % 0.2; HCT 37.8 % (36.0-46.0); HGB 12.5 g/dL (11.2-15.7); Immature Grans % 0.6; Lymphocytes % 5.2; MCH 30.6 pg (27.0-33.0); MCHC 33.1 % (32.0-36.0); MCV 92.6 fL (80-95); MPV 9.1 fL (8.0-11.0); Monocytes % 4.6; Neutrophils % 89.1; Nucleated RBC 0 %; Platelet Count 349 10^3/uL (130-400); RBC 4.08 10^6/uL (3.93-5.22); RDW 14.1 % (11.7-14.6); RDW-SD 47.7 fL; WBC 19.43 10^3/uL (4.4-10.8)
[2021-02-22 15:44] LABS: Absolute Lymphocyte Count 1.01 10^3/uL (1.2-3.4)
--- NOTE | 2021-02-22 15:44 | ED.GENADUL_ITS ---
Discharge Plan Disposition Patient Disposition: HOME Condition: Stable Discharge Details Clinical Impression: C. difficile diarrhea, Tachycardia, Leukocytosis Primary Care Provider: Venice Mcdonnell ED Provider: Ramses Garcia Home Meds and New Rx's Prescriptions: New vancomycin 125 mg capsule 125 mg PO QID 14 Days Qty: 70 RF: 0 Continued cholecalciferol (vitamin D3) 5,000 UNIT capsule 5,000 unit PO DAILY RF: 0 oy-krv-yeipi acid-lutein 1 EACH tablet,chewable 2 ea PO DAILY RF: 0 levalbuterol tartrate [Xopenex HFA] 45 mcg/actuation HFA aerosol inhaler 2 puff Inhalation QID PRN (Reason: shortness of breath) Qty: 4 RF: 5 montelukast 10 mg tablet 10 mg PO DAILY Qty: 90 RF: 4 budesonide-formoterol [Symbicort] 160-4.5 mcg/actuation HFA aerosol inhaler 2 inh INHALATION BID Qty: 30.6 RF: 4 citalopram [Celexa] 20 mg tablet 20 mg PO DAILY Qty: 90 RF: 12 fluticasone propionate 50 mcg/actuation spray,suspension 2 spray NS DAILY Qty: 29.6 RF: 4 prednisone 5 mg tablet 7.5 mg PO DAILY PRN (Reason: asthma) RF: 0 Discharge Instructions Instructions: C. Diff (Clostridioides Difficile) Infection (ED), Leukocytosis (ED) Additional Instructions: Your C. difficile test is positive, your white blood cell count is elevated, your heart rate is elevated, and your CT reveals moderate pancolitis. I have recommended admission but you have declined. I have placed you on the care management list to help expedite outpatient primary care follow-up. Vancomycin as directed. Plenty of fluids to avoid dehydration. As we discussed drink such as Gatorade and or Powerade that have electrolytes will also be beneficial. While you have C. difficile and taking vancomycin I recommend taking [id number] probiotic pill and having a live culture yogurt. Please watch for new or worsening symptoms and return to the ER for any concerns. Lastly, I strongly recommend contacting your primary care provider first thing Wednesday morning to discuss your ongoing symptoms and need for outpatient reevaluation. Discharge Data Discharge Date/Time-TO BE ENTERED AT DEPARTURE: 02/22/21 20:02 Medical Decision Making <Harriet Blanco - Last Filed: 02/23/21 17:19> 70-year-old female presents to the ER with chief complaint of diarrhea began yesterday. She reports having a history of a infected salivary gland which she was placed on antibiotics for. She reports that she contracted C. difficile shortly thereafter and finished vancomycin approximately 10 days ago. She also then contracted COVID-19. She reports that she thinks that the C. difficile may have returned. She does report some diffuse abdominal pain. No vomiting. She does have a history of a fundoplication so she cannot vomit. She has a past medical history of Covid, vitamin D deficiency, depression, GERD, asthma, anxiety, PE. She does endorse chills and leg pain, presents with a low-grade temp of 37.7. Work-up ordered including CBC, CMP, and urinalysis normal saline. Care is to be handed off to oncoming provider Ramses TAYLOR pending work-up and disposition. <CLAUDIA Berger - Last Filed: 02/22/21 20:16> Please see the care of this 70-year-old female from my colleague THIERRY Blanco, please see her initial HPI and examination. At time of signout laboratory values pending, patient receiving 1 L IV fluid. Patient reports that her leg cramps are improving greatly with the IV fluid, feels as though she was likely dehydrated. Abdomen is soft, diffuse mild discomfort but nonfocal for surgical abdominal examination. Laboratory values reveal white blood cell count of 19.43, absolute neutrophils 17.31, sodium 128, normal GFR, magnesium 1.6 total bili 1.2, AST 14, albumin 3.2, urinalysis with 40 ketones, moderate leuk esterase, greater than 50 white cells. She denies any dysuria or frequency whatsoever. C. difficile is positive Given her abdominal discomfort and leukocytosis will obtain CT of the abdomen and pelvis with contrast. Sodium 128. She is receiving 1 L IV fluid and I will give her another liter. We will give her 800 p.o. magnesium as well. Urine culture is pending. CT reveals moderate in severity pancolitis. Heart rate remains tachycardic, 114. She is now afebrile, 36.8. Subjectively she reports feeling improvement. She is tolerating p.o. intake without difficulty. Given her CT findings, of leukocytosis, persistent tachycardia, I have recommended admission to the patient as well as discussed this with her Juancho on the phone. Patient states that she is feeling improvement and she declines admission, would like to go home. Her is comfortable taking her home in her current condition. Given my concern, I have placed her on the care management list to help expedite outpatient primary care follow-up. Extremely strict discharge and return precautions were provided. Given her recurrent C. difficile, will provide her with a prescription of vancomycin, first dose given here now. 14 days of 125 4 times daily and then 7 days twice daily. Patient has no additional questions or concerns and is comfortable with discharge at this time. This documentation was generated using [email or web address] system, please disregard any oddities of phrase or misspellings. Medical Records Medical records reviewed: Yes I reviewed the patient's medical records. Imaging Data Radiologic Study: Attestation: I personally reviewed and interpreted this imaging study as follows: Imaging: CT Scan Radiologist's impression: PROCEDURE INFORMATION: Exam: CT Abdomen And Pelvis With Contrast Exam date and time: 02/22/2021 18:05 Age: 70 years old Clinical indication: Other: Abdominal pain, diarrhea, wbc 19 TECHNIQUE: Imaging protocol: Computed tomography of the abdomen and pelvis with contrast. Radiation optimization: All CT scans at this facility use at least one of these dose optimization techniques: automated exposure control; mA and/or kV adjustment per patient size (includes targeted exams where dose is matched to clinical indication); or iterative reconstruction. Contrast material: OMNIPAQUE 350; Contrast volume: 99 ml; Contrast route: INTRAVENOUS (IV); COMPARISON: CT CHEST FOR PULMONARY EMBOLUS 05/19/2016 13:43 FINDINGS: Diaphragm: Small hiatal hernia. Liver: Benign-appearing hepatic cysts and probable cysts. No hepatic masses. Gallbladder and bile ducts: No calcified stones. No ductal dilation. Pancreas: No ductal dilation. No masses. Spleen: No splenomegaly or focal lesions. Adrenal glands: No mass. Kidneys and ureters: Benign-appearing renal cysts and probable cysts. No renal masses or hydronephrosis bilaterally. Stomach and bowel: Postsurgical changes are suspected at the GE junction, please correlate with the surgical history. Moderate wall thickening in the rectum, sigmoid colon, descending colon, transverse colon, moderate to severe wall thickening right colon. No focal pathology in the small bowel. Appendix: No evidence of appendicitis. LEANDRO ZIMMER Preliminary Radiology Report WATER SANDER (QA) DISCREPANCY? If there is a discrepancy between the preliminary and final interpretation, please notify [facility] via [email or web address]. If you do not have access to our QA portal, call our QA team at [phone] CONFIDENTIALITY STATEMENT This report is intended only for the use of the referring physician, and only in accordance with law, If you received this in error, call [phone] Page 2 of 2 Intraperitoneal space: No free air. No significant fluid collection. Vasculature: No abdominal aortic aneurysm. Lymph nodes: No significantly enlarged lymph nodes. Urinary bladder: Unremarkable as visualized. Reproductive: Unremarkable as visualized. Bones/joints: Degenerative changes in the hips and spine. Chronic loss of height at L3. No acute fracture or subluxation. Soft tissues: No suspicious lesions. IMPRESSION: 1. Moderate in severity pancolitis. 2. Incidental findings as described Lab Data Lab results reviewed: Yes I reviewed the patient's lab results. Labs: 02/22/21 17:00 Blood Blood Culture - Pending 02/22/21 16:14 Stool Lactoferrin Latex Agglutination - Final 02/22/21 15:40 Urine - Reflex from Ua Urine Culture - Pending 02/22/21 15:15 Blood Blood Culture - Pending Laboratory Tests Range/Units 02/22/21 02/22/21 02/22/21 15:15 15:15 15:40 WBC (4.4-10.8) 10^3/uL 19.43 H RBC (3.93-5.22) 10^6/uL 4.08 Hgb (11.2-15.7) g/dL 12.5 Hct (36.0-46.0) % 37.8 MCV (80-95) fL 92.6 MCH (27.0-33.0) pg 30.6 MCHC (32.0-36.0) % 33.1 RDW (11.7-14.6) % 14.1 Plt Count (130-400) 10^3/uL 349 MPV (8.0-11.0) fL 9.1 Immature Gran % 0.6 Neutrophils % 89.1 Lymphocytes % 5.2 Monocytes % 4.6 Eosinophils % 0.2 Basophils % 0.3 Nucleated RBC % % 0 Absolute Neutrophils (1.2-6.7) 10^3/uL 17.31 H Absolute Lymphocytes (1.2-3.4) 10^3/uL 1.01 L Absolute Monocytes (0.1-0.8) 10^3/uL 0.89 H Absolute Eosinophils (0.0-0.7) 10^3/uL 0.04 Absolute Basophils (0.0-0.2) 10^3/uL 0.06 Sodium (136-145) mmol/L 128 L Potassium (3.5-5.1) mmol/L 3.7 Chloride (98-107) mmol/L 94 L Carbon Dioxide (21.0-32.0) mmol/L 23.6 Anion Gap (3-11) mmol/L 10.4 BUN (7-18) mg/dL 13 Creatinine (0.55-1.02) mg/dL 0.9 Estimated GFR/1.73 m2 (mL/min/1.73m2) >= 60.00 Glucose (74-106) mg/dL 134 H Calcium (8.5-10.1) mg/dL 8.7 Magnesium (1.8-2.4) mg/dL 1.6 L Total Bilirubin (0.2-1.0) mg/dL 1.2 H AST (15-37) U/L 14 L ALT (14-59) U/L 21 Alkaline Phosphatase (46-116) U/L 65 Total Protein (6.4-8.2) g/dL 6.8 Albumin (3.4-5.0) g/dL 3.2 L Urine Color (Yellow) Yellow Urine Clarity (Clear) Clear Urine pH (5-8) 6.5 Ur Specific [place] (1.005-1.025) 1.015 Urine Protein (Negative) mg/dL 100 H Urine Ketones (Negative) mg/dL 40 H Urine Blood (Negative) Small H Urine Nitrite (Negative) Negative Urine Bilirubin (Negative) Small H Urine Urobilinogen (Up TO 0.2) EU/dL 0.2 Ur Leukocyte Esterase (Negative) Moderate H Urine RBC (0-2) HPF 5-10 H Urine WBC (0-5) HPF >50 H Ur Epithelial Cells (Negative) HPF Few Urine Crystals (Negative) HPF Negative Urine Bacteria (Negative) HPF Many Urine Casts (Negative) LPF Negative Urine Mucus (Negative) Negative Urine Other (Negative) Few Transitional Ur Culture Indicated? Yes Urine Glucose (Negative) mg/dL Negative Stl C.difficile Tox PCR (Negative) Range/Units 02/22/21 16:14 WBC (4.4-10.8) 10^3/uL RBC (3.93-5.22) 10^6/uL Hgb (11.2-15.7) g/dL Hct (36.0-46.0) % MCV (80-95) fL MCH (27.0-33.0) pg MCHC (32.0-36.0) % RDW (11.7-14.6) % Plt Count (130-400) 10^3/uL MPV (8.0-11.0) fL Immature Gran % Neutrophils % Lymphocytes % Monocytes % Eosinophils % Basophils % Nucleated RBC % % Absolute Neutrophils (1.2-6.7) 10^3/uL Absolute Lymphocytes (1.2-3.4) 10^3/uL Absolute Monocytes (0.1-0.8) 10^3/uL Absolute Eosinophils (0.0-0.7) 10^3/uL Absolute Basophils (0.0-0.2) 10^3/uL Sodium (136-145) mmol/L Potassium (3.5-5.1) mmol/L Chloride (98-107) mmol/L Carbon Dioxide (21.0-32.0) mmol/L Anion Gap (3-11) mmol/L BUN (7-18) mg/dL Creatinine (0.55-1.02) mg/dL Estimated GFR/1.73 m2 (mL/min/1.73m2) Glucose (74-106) mg/dL Calcium (8.5-10.1) mg/dL Magnesium (1.8-2.4) mg/dL Total Bilirubin (0.2-1.0) mg/dL AST (15-37) U/L ALT (14-59) U/L Alkaline Phosphatase (46-116) U/L Total Protein (6.4-8.2) g/dL Albumin (3.4-5.0) g/dL Urine Color (Yellow) Urine Clarity (Clear) Urine pH (5-8) Ur Specific [place] (1.005-1.025) Urine Protein (Negative) mg/dL Urine Ketones (Negative) mg/dL Urine Blood (Negative) Urine Nitrite (Negative) Urine Bilirubin (Negative) Urine Urobilinogen (Up TO 0.2) EU/dL Ur Leukocyte Esterase (Negative) Urine RBC (0-2) HPF Urine WBC (0-5) HPF Ur Epithelial Cells (Negative) HPF Urine Crystals (Negative) HPF Urine Bacteria (Negative) HPF Urine Casts (Negative) LPF Urine Mucus (Negative) Urine Other (Negative) Ur Culture Indicated? Urine Glucose (Negative) mg/dL Stl C.difficile Tox PCR (Negative) Positive A HPI <Harriet Blanco - Last Filed: 02/23/21 17:19> General Mode of arrival: ambulatory . Date/Time Provider Initiated Documentation: 02/22/21 15:04 . Limitations to Documentation: no limitations . Information obtained by: patient, RN notes reviewed and old records reviewed . HPI Narrative: 70-year-old female presents to the ER with chief complaint of diarrhea began yesterday. She reports having a history of a infected salivary gland which she was placed on antibiotics for. She reports that she contracted C. difficile shortly thereafter and finished vancomycin approximately 10 days ago. She also then contracted COVID-19. She reports that she thinks that the C. difficile may have returned. She does report some diffuse abdominal pain. No vomiting. She does have a history of a fundoplication so she cannot vomit. She has a past medical history of Covid, vitamin D deficiency, depression, GERD, asthma, anxiety, PE. She does endorse chills presents with a low-grade temp of 37.7. Related Data Home Medications Medication Instructions Recorded Confirmed cholecalciferol (vitamin D3) 5,000 unit PO DAILY 05/04/16 02/22/21 [id number] acid-lutein 2 ea PO DAILY tab.chew 05/04/16 02/22/21 levalbuterol tartrate 45 2 puff INHALATION QID PRN #4 07/10/20 02/22/21 mcg/actuation aerosol inhaler inhaler montelukast 10 mg tablet 10 mg PO DAILY #90 tab-cap 07/10/20 02/22/21 budesonide-formoterol HFA 160 2 inh INHALATION BID #30.6 g 01/17/21 02/22/21 mcg-4.5 mcg/actuation aerosol inhaler citalopram 20 mg tablet 20 mg PO DAILY #90 tab-cap 01/17/21 02/22/21 fluticasone propionate 50 2 spray NS DAILY #29.6 ml 01/17/21 02/22/21 mcg/actuation nasal spray,suspension prednisone 7.5 mg PO DAILY PRN 02/22/21 02/22/21 vancomycin 125 mg PO QID 14 Days #70 cap 02/22/21 Previous Rx's Medication Instructions Recorded levalbuterol tartrate 45 2 puff INHALATION QID PRN #4 07/10/20 mcg/actuation aerosol inhaler inhaler montelukast 10 mg tablet 10 mg PO DAILY #90 tab-cap 07/10/20 budesonide-formoterol HFA 160 2 inh INHALATION BID #30.6 g 01/17/21 mcg-4.5 mcg/actuation aerosol inhaler citalopram 20 mg tablet 20 mg PO DAILY #90 tab-cap 01/17/21 fluticasone propionate 50 2 spray NS DAILY #29.6 ml 01/17/21 mcg/actuation nasal spray,suspension vancomycin 125 mg PO QID 14 Days #70 cap 02/22/21 Allergies Allergy/AdvReac Type Severity Reaction Status Date / Time sulfite Allergy Unknown ASTHMA Verified 02/22/21 14:51 General Stated Complaint: Nausea/Vomit/Diar SURENDRA: 3 Review of Systems <Harrietjared Longton - Last Filed: 02/23/21 17:19> All systems reviewed & are unremarkable except as noted in HPI and below Constitutional Constitutional: Reports fatigue Cardiovascular Cardiovascular: Denies chest pain and Denies dyspnea Respiratory Respiratory: Denies dyspnea Gastrointestinal Gastrointestinal: Reports abdominal pain and Reports diarrhea Endocrine Endocrine: Reports fatigue PFSH <Harriet Blanco - Last Filed: 02/23/21 17:19> All Active Problems (Updated 02/22/21 @ 19:28 by CLAUDIA Berger) C. 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 colonoscopy Depressive disorder (Chronic) Asthma (Chronic 01/05/11) severe Anxiety (Chronic) Medical History Anticoagulated on warfarin History of pulmonary embolus (PE) (06/22/13) 06/22/13 History of pulmonary embolus (PE) (06/22/13) Nasal polyp (10/24/08) Submandibular sialoadenitis (~12/2020) admitted to hospital secondary to infection. Managed with fluids, augmentin. Surgical History Colonoscopy - MAC (~2001) NEG EGD - MAC + GERD Extraction of cataract Hernia repair 04/10 History of cataract removal with insertion of prosthetic lens History of nasal polypectomy (12/25/13) Gurjit Fundoplication 04/10 POLYPECTOMY Family History Mother Essential hypertension PACEMAKER Heart disease Skin cancer Father , 46 Diabetes Essential hypertension Heart disease Brother Diabetes Hyperlipidemia Maternal Aunt Diabetes Brother Diabetes Heart disease Depression Brother Arthritis Paternal Grandfather , 60s Diabetes Maternal Grandfather , 90s Diabetes Maternal Grandmother , 97 No problems noted. Paternal Grandmother , 80s No problems noted. Brother No problems noted. Brother No problems noted. Social History Smoking/Tobacco Use Status: Former Tobacco Use Quit Date: 07/23/1968 Tobacco: How many years used: 2 Second Hand Exposure: Yes Smoking risk assessment performed?: Yes Alcohol Intake: never Drug use: Never Substance use type: does not use Counseling given: No Counseling provided: none Caregiver/Support person: No Household members: spouse Housing: house Communication Needs: None Do you need help understanding health information?: Rarely Pets and animals: Yes Pets and animals: cat(s) Sexually active: Yes Do you think of yourself as: straight/heterosexual Current gender identity: female What is your relationship status?: How often do you talk on the phone with friends or family?: twice per week How often do you get together with friends or relatives?: twice per week How often do you attend mormon or hoahaoism services?: decline to answer Do you belong to any clubs or organized social groups?: no Panel score (0-1 are the most socially isolated patients): 2 What type of physical activity do you participate in: walking Duration: 60-90 minutes/day Frequency: 1-2 times per week Arabella/Congregation: Catholic Special arabella needs: No Seatbelt use: always Helmet use: No Drive intox 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 Appears stated age. Normal body habitus. Head: Normocephalic, no trauma. Eyes: Pupils PERRL, Red reflex noted, EOM's intact. Eyelids symmetrical without lesions, discharge, or swelling. ENT: Bilateral TM's WNL, External ear normal to inspection, no mastoid TTP, swelling, or erythema, Nasal turbinates WNL, no nasal discharge. Normal dentition, Posterior pharynx WNL, no exudate. Chest: RRR, Normal S1, S2, distal pulses intact. Resp: Lungs clear to auscultation bilaterally, no wheezes, rales, or rhonchi. Abdomen: Soft, non-distended, Normoactive bowel sounds all 4 quads. Musculoskeletal: Normal gait, 5/5 strength to all four extremities. Skin: No suspicious rashes or lesions. Capillary refill less than 2 sec. Neurologic: Cranial nerves II-XII intact. Alert and oriented x 3. Motor: No deficits noted. Sensory: Intact bilaterally all 4 extremities. Reflexes: DTR's intact bilaterally.. Hematologic/Lymphatic: No ecchymosis, no lymphadenopathy. Course <Harriet Blanco - Last Filed: 02/23/21 17:19> Vital Signs Vital signs: Vital Signs Temperature 37.7 C H 02/22/21 14:47 Pulse 127 H 02/22/21 14:47 Blood Pressure 101/65 02/22/21 14:47 Pulse Oximetry 94 02/22/21 14:47 Temperature 37.7 C H 02/22/21 14:47 Temperature Source Temporal Artery Scan 02/22/21 14:47 Pulse 127 H 02/22/21 14:47 Respiratory Effort Non-Labored 02/22/21 15:25 Blood Pressure 101/65 02/22/21 14:47 Blood Pressure Position Sitting 02/22/21 14:47 Pulse Oximetry 94 02/22/21 14:47 Oxygen Delivery Method Room Air 02/22/21 14:47 Oxygen Flow Rate 0 02/22/21 14:47 Pain Level 0 02/22/21 14:47 Lab/Test Results Lab/Test Results: 02/22/21 15:15 Blood Blood Culture - Pending 02/22/21 15:08 Blood Blood Culture - Pending Sign Out <Harriet Blanco - Last Filed: 02/23/21 17:19> Sign Out Data: Sign Out Comment: R/O C-diff. Diarrhea, Elevated WBC, Leg pain. Last updated by Harriet Blanco at 02/22/21 16:06
[2021-02-22 15:49] LABS: ALT 21 U/L (14-59); AST 14 U/L (15-37); Albumin 3.2 g/dL (3.4-5.0); Alkaline Phosphatase 65 U/L (46-116); Anion Gap 10.4 mmol/L (3-11); BUN 13 mg/dL (7-18); Bilirubin, Total 1.2 mg/dL (0.2-1.0); CO2 23.6 mmol/L (21.0-32.0); CREATININE 0.9 mg/dL (0.55-1.02); Calcium 8.7 mg/dL (8.5-10.1); Chloride 94 mmol/L (98-107); Glucose 134 mg/dL (74-106); Magnesium 1.6 mg/dL (1.8-2.4); Potassium 3.7 mmol/L (3.5-5.1); Sodium 128 mmol/L (136-145); Total Protein 6.8 g/dL (6.4-8.2)
[2021-02-22] MEDS: Normal Saline 1,000 ML 1000 ML IV (15:55)
[2021-02-22 16:10] LABS: Bilirubin Small (Negative); Blood Small (Negative); Clarity Clear (Clear); Glucose Negative (Negative); Ketones 40 mg/dL (Negative); Leukocyte Esterase Moderate (Negative); Nitrite Negative (Negative); Specific Gravity 1.015 (1.005-1.025); Urobilinogen 0.2 EU/dL (Up TO 0.2); pH 6.5 (5-8)
[2021-02-22 16:16] LABS: Epithelial Cells Few HPF (Negative); WBC >50 HPF (0-5)
[2021-02-22 16:17] LABS: Bacteria Many HPF (Negative); C & S Indicated? Yes; Casts Negative LPF (Negative); Crystals Negative HPF (Negative); Mucus Negative (Negative); Other Cells Few Transitional (Negative)
--- NOTE | 2021-02-22 16:53 | DI.CT_ITS ---
Exam(s) CT ABDOMEN PELVIS W EXAM: CT ABDOMEN PELVIS W INDICATION: Abdominal pain, diarrhea, WBC 19. COMPARISON: CT CHEST FOR PULMONARY EMBOLUS from 05/19/2016 TECHNIQUE: FINDINGS: CT examination of the abdomen and pelvis was performed with a bolus infusion of 100 cc of Omnipaque 3 50. Images obtained through the lung bases are unremarkable. There is an incidental apparent old L3 vertebral body compression fracture. There is a moderate-sized hiatal hernia. There are multiple low-attenuation hepatic lesions consistent with cysts, the largest measuring rough ly 14 millimeters in diameter in the left hepatic lobe. Gallbladder and bile ducts are CT normal. Pancreas appears normal. Spleen is unremarkable in appearance. Adrenals appear normal. The kidneys are unremarkable with no evidence of hydronephrosis, nephrolithiasis, or renal mass.. Ur inary bladder unremarkable. Abdominal aorta is of normal diameter and no major vascular abnormality is seen. No abdominal wall hernia. No abdominal or pelvic adenopathy. 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 Appendix is normal. No evidence of diverticulitis or bowel obstruction. There is wall thickening throughout the colon consistent with colitis of uncertain etiology. No evid ence of perforation or obstruction. IMPRESSION: The appearance is consistent with a moreno colitis of uncertain etiology. No other significant findings .. RADIATION DOSE DELIVERED: 965.81mGy.cm Total DLP 965.81mGy.cm Total DLP 20.5mGy CTDIvol RADIATION OPTIMIZATION: All CT scans at this facility use at least one of these dose optimization te chniques: automated exposure control; mA and/or kV adjustment per patient size (includes targeted exa ms where dose is matched to clinical indication); or iterative reconstruction.
[2021-02-22] MEDS: Lactated Ringers 1,000 ML 1000 ML IV (17:20)
[2021-02-22 17:22] LABS: C Diff PCR Positive (Negative)
[2021-02-22] MEDS: Omnipaque 350 MG/ML 100 ML BTL 99 ML IJ (17:58)
[2021-02-22] MEDS: Normal Saline Flush 10 ML SYR IVP (17:58)
[2021-02-22 18:31] VITALS: BP 149/72; PULSE 128; RESP 20; TEMP 36.8; O2SAT 95
--- NOTE | 2021-02-22 18:31 | NUR.NOTE ---
pt soiled her pants refusing assistance to clean and change Nursing Note:
--- NOTE | 2021-02-22 18:41 | DI.VRAD_ITS ---
PROCEDURE INFORMATION: Exam: CT Abdomen And Pelvis With Contrast Exam date and time: 02/22/2021 18:05 Age: 70 years old Clinical indication: Other: Abdominal pain, diarrhea, wbc 19 TECHNIQUE: Imaging protocol: Computed tomography of the abdomen and pelvis with contrast. Radiation optimization: All CT scans at this facility use at least one of these dose optimization techniques: automated exposure control; mA and/or kV adjustment per patient size (includes targeted exams where dose is matched to clinical indication); or iterative reconstruction. Contrast material: OMNIPAQUE 350; Contrast volume: 99 ml; Contrast route: INTRAVENOUS (IV); COMPARISON: CT CHEST FOR PULMONARY EMBOLUS 05/19/2016 13:43 FINDINGS: Diaphragm: Small hiatal hernia. Liver: Benign-appearing hepatic cysts and probable cysts. No hepatic masses. Gallbladder and bile ducts: No calcified stones. No ductal dilation. Pancreas: No ductal dilation. No masses. Spleen: No splenomegaly or focal lesions. Adrenal glands: No mass. Kidneys and ureters: Benign-appearing renal cysts and probable cysts. No renal masses or hydronephrosis bilaterally. Stomach and bowel: Postsurgical changes are suspected at the GE junction, please correlate with the surgical history. Moderate wall thickening in the rectum, sigmoid colon, descending colon, transverse colon, moderate to severe wall thickening right colon. No focal pathology in the small bowel. Appendix: No evidence of appendicitis. Intraperitoneal space: No free air. No significant fluid collection. Vasculature: No abdominal aortic aneurysm. Lymph nodes: No significantly enlarged lymph nodes. Urinary bladder: Unremarkable as visualized. Reproductive: Unremarkable as visualized. Bones/joints: Degenerative changes in the hips and spine. Chronic loss of height at L3. No acute fracture or subluxation. Soft tissues: No suspicious lesions. IMPRESSION: 1. Moderate in severity pancolitis. 2. Incidental findings as described. Dictated and Authenticated by: Alexandra Cedeno MD. Ordering:LAMINE Pearce MD
[2021-02-22] MEDS: Magnesium Oxide 400 MG TAB 800 MG PO (18:58)
--- NOTE | 2021-02-22 19:03 | NUR.NOTE ---
Referral faxed to [facility] to f/u recurring c-diff. Provider would like office to call patient 02/24/21 to see how she is feeling then decide appropriate appt date. Nursing Note:
[2021-02-22] MEDS: Vancomycin 125 MG CAP PO ×2 (19:19)
--- NOTE | 2021-02-23 15:42 | NUR.NOTE ---
prescription unable to be filled at [facility] due to it being closed. called rx into [facility].
== END 2021-02-22 20:02 | disposition home or self-care (01) ==
PROVIDERS: Registered Nurse Emergency; Emergency Provider Physician Assistant; PCP Family Medicine
DX: A04.72 Enterocolitis due to Clostridium difficile, not specified as recurrent (principal); R00.0 Tachycardia, unspecified; D72.829 Elevated white blood cell count, unspecified; K51.00 Ulcerative (chronic) pancolitis without complications
CPT/HCPCS: 36415; 80053; 87040; 87493; 96360; 99285; 74177; 81003; 81015; 83630; 83735; 85025; 87086; 87177; 99284; J3490

== ENCOUNTER 2021-03-06 03:40 | Outpatient (RCR) | payer MEDICARE, SELFPAY ==
[2021-03-06] MEDS: Denosumab 60 MG/ML SYR SC (14:00)
== END 2021-03-24 23:59 | disposition home or self-care (01) ==
LOC: INF 03:40
PROVIDERS: PCP Family Medicine; Visit Provider Family Medicine
DX: M81.0 Age-related osteoporosis without current pathological fracture (principal); Z79.52 Long term (current) use of systemic steroids
CPT/HCPCS: 96372; J0897

== ENCOUNTER 2021-05-20 03:25 | Outpatient (CLI) | payer MEDICARE, SELFPAY ==
[2021-05-20] MEDS: Inhaler, Assist Device 1 EACH MC (14:19)
[2021-05-20] MEDS: Albuterol HFA 18 GM 200 PUFF INH IH (14:19)
== END 2021-05-20 03:26 | disposition home or self-care (01) ==
LOC: RT 03:25
PROVIDERS: PCP Family Medicine; Visit Provider Student in an Organized Health Care Education/Training Program
DX: J45.909 Unspecified asthma, uncomplicated (principal); R06.09 Other forms of dyspnea
CPT/HCPCS: 94060; 94726; 94729

== ENCOUNTER 2021-05-29 01:03 | Outpatient (CLI) | payer MEDICARE, SELFPAY ==
--- NOTE | 2021-05-29 08:30 | DI.CT_ITS ---
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 TECHNIQUE: Imaging protocol: Axial computed tomography images were obtained and coronal and sagittal reformatted images were created and reviewed. COMPARISON: CT CHEST FOR PULMONARY EMBOLUS from 05/19/[address] ABDOMEN PELVIS W from 02/22/2021 FINDINGS: Tracheobronchial tree: Patent where visualized. No intraluminal mass or evidence of mucous plugging. No bronchiectasis. Pulmonary parenchyma: No consolidation or dominant measurable mass. No architectural distortion. Note is made of an azygos lobe. There is a 3 mm nodule in the right middle lobe. Mediastinum and Peggy: No dominant adenopathy or fluid collection. The esophagus is unremarkable.There is a moderate hiatal hernia. Thyroid gland: Unremarkable. Pleura: No effusion or pneumothorax. Heart: The heart is not dilated. Mild coronary artery calcification. No pericardial effusion. Aorta: Thoracic aorta non-dilated. Atherosclerosis. Upper abdomen: There again seen several hypodensities in the liver. These are consistent with cysts . Lymph nodes: Within normal limits. Soft tissues: Unremarkable. Bones:Within normal limits for the patient's age. There is an old L3 compression deformity. IMPRESSION: 1. No pulmonary parenchymal disease. 2. 3 mm nodule in the right middle lobe. In low risk patients, no follow-up is recommended. In high risk patients (history of smoking or other risk factors), optional CT scan in 12 months is recommend ed. (aMhesh et al 2017) RADIATION DOSE DELIVERED: 600.81mGy.cm Total DLP 600.81mGy.cm Total DLP DATA REPOSITORY: All CT scans at this facility are submitted to the National Radiology Data Registry (NRDR) Dose Index Registry (DIR) with the [employer] (ACR). RADIATION OPTIMIZATION: All CT scans at this facility use at least one of these dose optimization te chniques: automated exposure control; mA and/or kV adjustment per patient size (includes targeted exa ms where dose is matched to clinical indication); or iterative reconstruction.
== END 2021-05-29 01:23 ==
PROVIDERS: PCP Family Medicine; Visit Provider Student in an Organized Health Care Education/Training Program
DX: J45.909 Unspecified asthma, uncomplicated (principal); R91.1 Solitary pulmonary nodule
CPT/HCPCS: 71250

== ENCOUNTER 2021-10-02 13:33 | Emergency (ER) | payer MEDICARE, SELFPAY ==
[2021-10-02 13:55] VITALS: BP 135/70; PULSE 95; RESP 16; TEMP 36.8; O2SAT 96
--- NOTE | 2021-10-02 15:15 | DI.CT_ITS ---
Exam(s) CT NECK W EXAM: CT NECK W CLINICAL HISTORY: Right neck painful mass, fever, night sweats,. TECHNIQUE: Imaging Protocol: Axial CT angiography was performed with multi-slice acquisition and mu lti-planar and/or 3D reconstructions. CONTRAST MATERIAL: Intravenous: Omnipaque 350 Contrast volume:100 mL COMPARISON: CT CT NECK W from 12/27/2020 FINDINGS: The lower most images reveal concerning new nodules-masses in both visualize upper lobes, ranging up to 2 cm size in the accessory azygos lobe. These findings were not evident on the prior study of Dec Nasopharynx: Unremarkable. Oropharynx: Unremarkable Retropharyngeal space: Unremarkable. Hypopharynx: Unremarkable. Valleculae unremarkable. Aryepiglottic folds unremarkable. Vocal cords and subglottic airway: Unremarkable. Thyroid gland: There is a nodule in the inferior aspect of the left lobe measuring 10 x 9 millimeters . Smaller nodule in the right lobe. Lymph nodes: No lymphadenopathy in the neck nor within the supraclavicular regions. Salivary glands: No significant focal findings in the parotid glands. Dilated bilateral submandibular gland Edison's ducts noted, left again more so than right. The prev iously present multiple calculi in the left Edison's duct in the floor of the mouth are no longer se en. Nevertheless, the duct on the left side is dilated to diameter of 5 millimeters despite absence of obvious calculi therein. The right submandibular gland is larger than the left but does not appea r grossly edematous. There is a skin marker over this region. No enlarged lymph nodes at this level . IMPRESSION: 1. Compared to the prior CT scan of 12/27/2020 there is now a skin marker directly over the asymmetri harjit enlarged right submandibular gland. There is known history of submandibular gland calculi and the previously present multiple calculi in the left submandibular duct in the floor of the mouth are no longer seen although the duct remains enlarged. There are no neoplastic lesions seen in the subma ndibular and parotid glands. 2. Of significant concern here is the incidental finding of numerous ominous nodules in the partiall y visualized upper lung sy, ranging up to 2 cm diameter and suspicious for metastatic or infectio us/inflammatory disease. Chest CT scan recommended. Indeed, recommend CT scan of chest/abdomen/pelvis. RADIATION DOSE DELIVERED: 448.66mGy.cm Total DLP DATA REPOSITORY: All CT scans at this facility are submitted to the National Radiology Data Registry (NRDR) Dose Index Registry (DIR) with the [employer] (ACR). RADIATION OPTIMIZATION: All CT scans at this facility use at least one of these dose optimization te chniques: automated exposure control; mA and/or kV adjustment per patient size (includes targeted exa ms where dose is matched to clinical indication); or iterative reconstruction.
--- NOTE | 2021-10-02 15:24 | ED.GENADUL_ITS ---
Discharge Plan Disposition Patient Disposition: HOME Condition: Stable Discharge Details Clinical Impression: Sialadenitis Primary Care Provider: Venice Mcdonnell ED Provider: Ramses Garcia Home Meds and New Rx's Prescriptions: New amoxicillin-pot clavulanate 875-125 mg tablet 1 tab PO BID Qty: 14 0RF Continued omeprazole 20 mg capsule,delayed release(DR/EC) 20 mg PO DAILY Qty: 90 4RF Dupixent Pen 300 mg/2 mL pen injector See Rx Instructions .ROUTE .COMPLEX Qty: 4 12RF Rx Instructions: Initial dose: 600mg (4mL) injected subcutaneously once; Maintenance dose: 300mg (2mL) injected subcutaneously every 2 weeks cholecalciferol (vitamin D3) 5,000 UNIT capsule 5,000 unit PO DAILY Label Comments: 04/20/17- Now taking. aj 05/04/16 on hold. si rx-[id number] acid-lutein 1 EACH tablet,chewable 2 ea PO DAILY fluticasone propionate 50 mcg/actuation spray,suspension 2 spray NS DAILY Qty: 29.6 4RF Rx Instructions: 50MCG budesonide-formoterol [Symbicort] 160-4.5 mcg/actuation HFA aerosol inhaler 2 inh INHALATION BID Qty: 30.6 3RF citalopram [Celexa] 20 mg tablet 20 mg PO DAILY Qty: 90 3RF Rx Instructions: dispense generic levalbuterol tartrate [Xopenex HFA] 45 mcg/actuation HFA aerosol inhaler 2 puff Inhalation QID PRN (Reason: shortness of breath) Qty: 4 5RF montelukast 10 mg tablet 10 mg PO DAILY Qty: 90 3RF budesonide-formoterol [Symbicort] 160-4.5 mcg/actuation HFA aerosol inhaler 2 puff inhalation BID Qty: 10.2 3RF prednisone 5 mg tablet 8.5 mg PO DAILY Discharge Instructions Instructions: Sialoadenitis (ED) Additional Instructions: Augmentin as directed. Warm compresses every 2 hours for 20 minutes. Be sure to eat hard candies that are tart to help increase your saliva output. Watch for new or worsening symptoms and return to the ER for any concerns. Lastly, I recommend contacting Dr. Gordillo tomorrow to discuss your ER visit and need for outpatient reevaluation Referrals: Jorge Alberto Gordillo MD [ [facility] STAFF PHYSICIAN] - Medical Decision Making Shared decision making discussed with patient discussed varying options including CT, blood work versus antibiotics and follow-up. Due to patient's night sweats fever chills history of submandibular cellulitis and age I did opt to to draw blood and order CT neck with IV contrast. Orders placed. Care signed out to oncoming provider Ramses Garcia pending labs and CT exam. Discussed patient case in details with him he verbalizes understanding. This text was generated using [employer] dictation system, please disregard any oddities of phrase or misspellings. Medical Records Medical records reviewed: Yes I reviewed the patient's medical records. HPI General Mode of arrival: ambulatory . Date/Time Provider Initiated Documentation: 10/02/21 14:09 . Limitations to Documentation: no limitations . Information obtained by: patient, RN notes reviewed and old records reviewed . HPI Narrative: 71-year-old female presents to the ER with chief complaint right-sided neck pain and swelling which has been ongoing for the last 2 weeks. Patient reports in termittent pain. Night sweats, fever or chills and sore throat. She denies any chest pain shortness of breath any other associated symptoms. She does have a history of sialadenitis which she had to be admitted for with IV antibiotics in february of 2021 and therefore also developed C. difficile u ortunately. Past medical history includes PE, nasal polyps, COVID, dehydration, depression she is anticoagulated on warfarin, asthma, anxiety, sleep apnea Related Data Home Medications Medication Instructions Recorded Confirmed cholecalciferol (vitamin D3) 125 5,000 unit PO DAILY 05/04/16 10/02/21 mcg (5,000 unit) capsule multivit with min-folic 2 ea PO DAILY 05/04/16 10/02/21 acid-lutein 200 mcg-137.5 mcg chewable tablet fluticasone propionate 50 2 spray NS DAILY #29.6 mL 01/17/21 10/02/21 mcg/actuation nasal spray,suspension dupilumab 300 mg/2 mL subcutaneous See Rx Instructions .Route 05/14/21 10/02/21 pen injector ([employer]) .COMPLEX #4 mL budesonide-formoterol HFA 160 2 inh inhalation BID Asthma #30.6 08/06/21 10/02/21 mcg-4.5 mcg/actuation aerosol grams inhaler (Symbicort) citalopram 20 mg tablet (Celexa) 20 mg PO DAILY #90 tab-caps 08/06/21 10/02/21 levalbuterol tartrate 45 2 puff inhalation QID PRN 08/06/21 10/02/21 mcg/actuation aerosol inhaler shortness of breath ##4 (Xopenex HFA) montelukast 10 mg tablet 10 mg PO DAILY #90 tab-caps 08/06/21 10/02/21 budesonide-formoterol HFA 160 2 puff inhalation BID #10.2 grams 09/03/21 10/02/21 mcg-4.5 mcg/actuation aerosol inhaler (Symbicort) omeprazole 20 mg capsule,delayed 20 mg PO DAILY #90 caps 09/22/21 10/02/21 release amoxicillin 875 mg-potassium 1 tab PO BID #14 tabs 10/02/21 clavulanate 125 mg tablet prednisone 5 mg tablet 8.5 mg PO DAILY 10/02/21 10/02/21 Previous Rx's Medication Instructions Recorded fluticasone propionate 50 2 spray NS DAILY #29.6 mL 01/17/21 mcg/actuation nasal spray,suspension dupilumab 300 mg/2 mL subcutaneous See Rx Instructions .Route 05/14/21 pen injector ([employer]) .COMPLEX #4 mL budesonide-formoterol HFA 160 2 inh inhalation BID Asthma #30.6 08/06/21 mcg-4.5 mcg/actuation aerosol grams inhaler (Symbicort) citalopram 20 mg tablet (Celexa) 20 mg PO DAILY #90 tab-caps 08/06/21 levalbuterol tartrate 45 2 puff inhalation QID PRN 08/06/21 mcg/actuation aerosol inhaler shortness of breath ##4 (Xopenex HFA) montelukast 10 mg tablet 10 mg PO DAILY #90 tab-caps 08/06/21 budesonide-formoterol HFA 160 2 puff inhalation BID #10.2 grams 09/03/21 mcg-4.5 mcg/actuation aerosol inhaler (Symbicort) omeprazole 20 mg capsule,delayed 20 mg PO DAILY #90 caps 09/22/21 release amoxicillin 875 mg-potassium 1 tab PO BID #14 tabs 10/02/21 clavulanate 125 mg tablet Allergies Allergy/AdvReac Type Severity Reaction Status Date / Time sulfite Allergy Unknown ASTHMA Verified 10/02/21 13:59 General Stated Complaint: Sorethroat SURENDRA: 4 Review of Systems All systems reviewed & are unremarkable except as noted in HPI and below Constitutional Constitutional: Reports body ache(s), Reports chills, Reports fever(s) and Reports night sweats ENT Ears, Nose, Mouth, and Throat: Reports as per HPI, Reports dizziness, Denies otalgia, Reports nasal congestion, Reports nasal discharge, Reports neck mass, Reports neck pain and Reports sore throat Cardiovascular Cardiovascular: Denies chest pain and Denies dyspnea Respiratory Respiratory: Denies dyspnea Musculoskeletal Musculoskeletal: Reports neck pain Neurologic Neurologic: Reports dizziness PFSH All Active Problems (Updated 10/02/21 @ 18:25 by CLAUDIA Berger) Sialadenitis (Acute) Clostridioides difficile diarrhea (Acute) 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 colonoscopy Asthma (Chronic 01/05/11) severe Anxiety (Chronic) Medical History Anticoagulated on warfarin COVID Dehydration Depressive disorder History of pulmonary embolus (PE) (06/22/13) 06/22/13 History of pulmonary embolus (PE) (06/22/13) Nasal polyp (10/24/08) Submandibular sialoadenitis (~12/2020) admitted to hospital secondary to infection. Managed with fluids, augmentin. Vitamin D deficiency (03/03/16) Surgical History Colonoscopy - MAC (~2001) NEG EGD - MAC + GERD Extraction of cataract Hernia repair 04/10 History of cataract removal with insertion of prosthetic lens History of nasal polypectomy (12/25/13) Gurjit Fundoplication 04/10 POLYPECTOMY Family History Mother , 95 Essential hypertension PACEMAKER Heart disease Skin cancer Father , 43 Diabetes Essential hypertension Heart disease Brother Diabetes Hyperlipidemia Maternal Aunt Diabetes Brother Diabetes Heart disease Depression Brother Arthritis Paternal Grandfather , 60s Diabetes Maternal Grandfather , 90s Diabetes Maternal Grandmother , 97 No problems noted. Paternal Grandmother , 80s No problems noted. Brother No problems noted. Brother No problems noted. Social History Smoking/Tobacco Use Status: Former Tobacco Use Quit Date: 07/23/1968 Tobacco: How many years used: 2 Second Hand Exposure: Yes Smoking risk assessment performed?: Yes Alcohol Intake: current Alcohol Intake frequency: holidays/special occasions only Alcohol type: beer, wine and hard liquor Drug use: Never Substance use type: does not use Counseling given: No Counseling provided: none Caregiver/Support person: No Household members: spouse Housing: house Communication Needs: None Do you need help understanding health information?: Rarely Pets and animals: Yes Pets and animals: cat(s) Sexually active: Yes Do you think of yourself as: straight/heterosexual Current gender identity: female What is your relationship status?: How often do you talk on the phone with friends or family?: twice per week How often do you get together with friends or relatives?: once per week Do you belong to any clubs or organized social groups?: no Panel score (0-1 are the most socially isolated patients): 2 What type of physical activity do you participate in: walking, swimming and other Details: House work, Yard work Duration: 30-45 minutes/day Frequency: 3-4 times per week Arabella/Worship: Jew Special arabella needs: No Seatbelt use: always Helmet use: No Drive intox 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 Approx 2.5 cm in diameter christa fixed mass. Slightly larger on right. No surrounding erythema or fluctuance. Mouth: oral mucosae normal, lip normal, no drooling, no muffled voice and salivary duct abnormal right Edison's (submandibular) mass hard and fixed; not fluctuant Teeth and gingiva: dentition normal Throat: posterior oropharynx abnormal erythema; no cobblstoning and no exudates Neck Neck: trachea midline, lymphadenopathy right anterior cervical hard and fixed 0.98 in and tender Chest Chest: normal inspection of the chest Resp Effort & Inspection: normal respiratory effort and able to speak in complete sentences Auscultation: clear to auscultation bilaterally Course Vital Signs Vital signs: Vital Signs Temperature 36.8 C 10/02/21 13:55 Pulse 95 H 10/02/21 13:55 Respiratory Rate 16 10/02/21 13:55 Blood Pressure 135/70 10/02/21 13:55 Pulse Oximetry 96 10/02/21 13:55 Temperature 36.8 C 10/02/21 13:55 Temperature Source Temporal Artery Scan 10/02/21 13:55 Pulse 95 H 10/02/21 13:55 Respiratory Rate 16 10/02/21 13:55 Blood Pressure 135/70 10/02/21 13:55 Blood Pressure Position Sitting 10/02/21 13:55 Pulse Oximetry 96 10/02/21 13:55 Oxygen Delivery Method Room Air 10/02/21 13:55 Oxygen Flow Rate 0 10/02/21 13:55 Pain Level 5 10/02/21 13:55 Lab/Test Results Lab/Test Results: 10/02/21 14:15 Pharynx Group A Streptococcus Culture - Pending POC Strep Test-FINESSE(Rapid) Start: 10/02/21 14:30 Freq: .Rapid Strep Test Status: Active Protocol: Document 10/02/21 14:31 RM (Rec: 10/02/21 14:31 RM [id number]) Strep test-FINESSE(Rapid)-POC POC-Strep test-FINESSE (Rapid) Negative POC-Strep test-FINESSE (Rapid) Negative Sign Out Sign Out Data: Sign Out Comment: 71-year-old female with 2 weeks of right-sided neck pain, swelling, palpable mass and sore throat. She also endorses night sweats, fever or chills. Does have a history of submandibular sialadenitis which she was admitted for in February received IV antibiotics and developed C. difficile. Airway is intact, pending labs, CT neck with IV contrast Last updated by Harriet Blanco NP at 10/02/21 15:57
[2021-10-02 16:27] LABS: Absolute Basophil Count 0.08 10^3/uL (0.0-0.2); Absolute Lymphocyte Count 2.31 10^3/uL (1.2-3.4); Absolute Monocyte Count 1.26 10^3/uL (0.1-0.8); Absolute Neutrophil Count 10.64 10^3/uL (1.2-6.7); Basophils % 0.5; Eosinophils % 6.4; HCT 39.7 % (36.0-46.0); HGB 12.9 g/dL (11.2-15.7); Immature Grans % 0.7; MCHC 32.5 % (32.0-36.0); MCV 95 fL (80-95); MPV 8.8 fL (8.0-11.0); Monocytes % 8.2; Neutrophils % 69.2; Platelet Count 391 10^3/uL (130-400); RBC 4.16 10^6/uL (3.93-5.22); RDW 12.5 % (11.7-14.6); RDW-SD 44.4 fL; WBC 15.38 10^3/uL (4.4-10.8)
[2021-10-02 16:28] LABS: Absolute Eosinophil Count 0.98 10^3/uL (0.0-0.7)
[2021-10-02 16:39] LABS: Mono Screening Negative (Negative)
[2021-10-02 16:42] LABS: ALT 19 U/L (14-59); AST 17 U/L (15-37); Albumin 2.7 g/dL (3.4-5.0); Alkaline Phosphatase 55 U/L (46-116); BUN 12 mg/dL (7-18); Bilirubin, Total 0.3 mg/dL (0.2-1.0); CREATININE 0.7 mg/dL (0.55-1.02); Calcium 8.9 mg/dL (8.5-10.1); Chloride 100 mmol/L (98-107); Glucose 104 mg/dL (74-106); Potassium 3.9 mmol/L (3.5-5.1); Sodium 139 mmol/L (136-145); Total Protein 7.3 g/dL (6.4-8.2)
[2021-10-02 17:20] LABS: COVID-19 PCR Negative (Negative); Influenza A PCR Negative (Negative); Influenza B PCR Negative (Negative); RSV PCR Negative (Negative)
[2021-10-02 17:22] LABS: Source Nasopharynx
--- NOTE | 2021-10-02 17:45 | DI.VRAD_ITS ---
PROCEDURE INFORMATION: Exam: CT Neck With Contrast Exam date and time: 10/02/2021 4:04 PM Age: 71 years old Clinical indication: Other: Right neck pain, mass , fever, night sweats TECHNIQUE: Imaging protocol: Computed tomography of the neck with contrast. Contrast material: 350; Contrast volume: 100 ml; Contrast route: INTRAVENOUS (IV); COMPARISON: CT NECK W 12/27/2020 1:02 PM FINDINGS: Pharynx: Unremarkable. No significant tonsillar enlargement. Larynx: Unremarkable. Epiglottis is normal. Prevertebral and retropharyngeal spaces: Unremarkable. Salivary glands: Submandibular glands are nearly symmetrical in size right larger than left demonstrating central [place]'s duct dilatation at the hilar regions, up to about 5 mm. Left Edison's duct is dilated into the floor of mouth, with a 4 mm caliber, diminished in size since prior study with previous small ductal opaque calculi no longer demonstrated. BB marker is placed over the right submandibular fossa, the right gland being larger than the left with the difference of about 2-3 mm. Thyroid: Normal. No enlarged or calcified nodules. Lymph nodes: Unremarkable. No lymphadenopathy. Trachea: Visualized trachea is unremarkable. Lungs: There are multiple lung masses, majority of which are rounded, and many of those have spiculated margins. The largest is right upper lobe adjacent to an azygos fissure, 21 mm axial image 133. Bones/joints: Multilevel cervical spondylosis, anterolisthesis grade 1 C2-C3, with multi sella level facet arthropathy and no significant canal stenosis. No acute fracture. Soft tissues: Unremarkable. No significant soft tissue swelling. IMPRESSION: There is no neck mass or adenopathy. There are numerous new lung nodular masses, to 21 mm right upper lobe, incompletely imaged. Advise contrast-enhanced CT thorax as follow-up. Dictated and Authenticated by: Calvin Maldonado MD. Ordering:TIM Larios MD
[2021-10-02 18:07] VITALS: BP 136/84; PULSE 95; TEMP 36.4; O2SAT 93
--- NOTE | 2021-10-02 18:23 | ED.PROG_ITS ---
Date of service: 10/02/21 Time of Service: 18:52 Medical Decision Making I assumed care of this 71-year-old female from my colleague THIERRY Blanco, please see her initial HPI and examination. At time of signout awaiting laboratory values and CT imaging. Laboratory values do reveal leukocytosis of 15.38. Electrolytes and renal function unremarkable. COVID-negative. CT imaging reveals no neck mass or adenopathy, there are numerous new lung nodule masses, to 21 mm right upper lobe, advise contrast-enhanced CT thorax as follow-up.Salivary glands: Submandibular glands are nearly symmetrical in size right larger than left demonstrating central Clymer's duct dilatation at the hilar regions, up to about 5 mm. Left Clymer's duct is dilated into the floor of mouth, with a 4 mm caliber, diminished in size since prior study with previous small ductal opaque calculi no longer demonstrated. BB marker is placed over the right submandibular fossa, the right gland being larger than the left with the difference of about 2-3 mm. Thyroid: Normal. No enlarged or calcified nodules. Discuss her numerous lung nodules and need for outpatient follow-up. Patient states that she is followed by pulmonary and that these are known. Secondary plan are nearly symmetric but the right is slightly larger demonstrating central Edison's duct dilatation up to 5 mm. In the setting of her CT findings and leukocytosis we will place her on Augmentin. She does have a history of C. difficile so she will be sure to be taking probiotics as well. We also discussed the importance of taking a tart candy or lemon drops. We also discussed the importance of follow-up with ENT, Dr. Gordillo, I will provide a referral Patient appears well, nontoxic, airway is patent Standard discharge and return precautions were provided. Patient understands, is agreeable to this plan, and has no additional questions or concerns upon discharge. This documentation was generated using [employer] system, please disregard any oddities of phrase or misspellings. Medical Records Medical records reviewed: Yes I reviewed the patient's medical records. Imaging Data Radiologic Study: Attestation: I personally reviewed and interpreted this imaging study as follows: Imaging: CT Scan Radiologist's impression: PROCEDURE INFORMATION: Exam: CT Neck With Contrast Exam date and time: 10/02/2021 4:04 PM Age: 71 years old Clinical indication: Other: Right neck pain, mass , fever, night sweats TECHNIQUE: Imaging protocol: Computed tomography of the neck with contrast. Contrast material: 350; Contrast volume: 100 ml; Contrast route: INTRAVENOUS (IV); COMPARISON: CT NECK W 12/27/2020 1:02 PM FINDINGS: Pharynx: Unremarkable. No significant tonsillar enlargement. Larynx: Unremarkable. Epiglottis is normal. Prevertebral and retropharyngeal spaces: Unremarkable. Salivary glands: Submandibular glands are nearly symmetrical in size right larger than left demonstrating central Clymer's duct dilatation at the hilar regions, up to about 5 mm. Left Clymer's duct is dilated into the floor of mouth, with a 4 mm caliber, diminished in size since prior study with previous small ductal opaque calculi no longer demonstrated. BB marker is placed over the right submandibular fossa, the right gland being larger than the left with the difference of about 2-3 mm. Thyroid: Normal. No enlarged or calcified nodules. Lymph nodes: Unremarkable. No lymphadenopathy. Trachea: Visualized trachea is unremarkable. Lungs: There are multiple lung masses, majority of which are rounded, and many of those have spiculated margins. The largest is right upper lobe adjacent to an azygos fissure, 21 mm axial image 133. Bones/joints: Multilevel cervical spondylosis, anterolisthesis grade 1 C2-C3, with multi sella level facet arthropathy and no significant canal stenosis. No acute fracture. Soft tissues: Unremarkable. No significant soft tissue swelling.IMPRESSION: There is no neck mass or adenopathy. There are numerous new lung nodular masses, to 21 mm right upper lobe, incompletely imaged. Advise contrast-enhanced CT thorax as follow-up. Lab Data Lab results reviewed: Yes I reviewed the patient's lab results. Labs: 10/02/21 14:15 Pharynx Group A Streptococcus Culture - Pending Laboratory Tests Range/Units 10/02/21 10/02/21 10/02/21 16:06 16:06 16:18 WBC (4.4-10.8) 10^3/uL RBC (3.93-5.22) 10^6/uL Hgb (11.2-15.7) g/dL Hct (36.0-46.0) % MCV (80-95) fL MCH (27.0-33.0) pg MCHC (32.0-36.0) % RDW (11.7-14.6) % Plt Count (130-400) 10^3/uL MPV (8.0-11.0) fL Immature Gran % Neutrophils % Lymphocytes % Monocytes % Eosinophils % Basophils % Nucleated RBC % (0.0-0.3) % Absolute Neutrophils (1.2-6.7) 10^3/uL Absolute Lymphocytes (1.2-3.4) 10^3/uL Absolute Monocytes (0.1-0.8) 10^3/uL Absolute Eosinophils (0.0-0.7) 10^3/uL Absolute Basophils (0.0-0.2) 10^3/uL Sodium (136-145) mmol/L 139 Potassium (3.5-5.1) mmol/L 3.9 Chloride (98-107) mmol/L 100 Carbon Dioxide (21.0-32.0) mmol/L 32.0 Anion Gap (3-11) mmol/L 7.0 BUN (7-18) mg/dL 12 Creatinine (0.55-1.02) mg/dL 0.7 Estimated GFR/1.73 m2 (mL/min/1.73m2) >= 60.00 Glucose (74-106) mg/dL 104 Calcium (8.5-10.1) mg/dL 8.9 Total Bilirubin (0.2-1.0) mg/dL 0.3 AST (15-37) U/L 17 ALT (14-59) U/L 19 Alkaline Phosphatase (46-116) U/L 55 Total Protein (6.4-8.2) g/dL 7.3 Albumin (3.4-5.0) g/dL 2.7 L COVID-19 Source Cancelled Nasopharynx SARS-CoV-2 (PCR) Cancelled Negative Monoscreen (Negative) Influenza Type A (PCR) (Negative) Negative Influenza Type B (PCR) (Negative) Negative RSV (PCR) (Negative) Negative Range/Units 10/02/21 10/02/21 16:18 16:18 WBC (4.4-10.8) 10^3/uL 15.38 H RBC (3.93-5.22) 10^6/uL 4.16 Hgb (11.2-15.7) g/dL 12.9 Hct (36.0-46.0) % 39.7 MCV (80-95) fL 95 MCH (27.0-33.0) pg 31.0 MCHC (32.0-36.0) % 32.5 RDW (11.7-14.6) % 12.5 Plt Count (130-400) 10^3/uL 391 MPV (8.0-11.0) fL 8.8 Immature Gran % 0.7 Neutrophils % 69.2 Lymphocytes % 15.0 Monocytes % 8.2 Eosinophils % 6.4 Basophils % 0.5 Nucleated RBC % (0.0-0.3) % 0.0 Absolute Neutrophils (1.2-6.7) 10^3/uL 10.64 H Absolute Lymphocytes (1.2-3.4) 10^3/uL 2.31 Absolute Monocytes (0.1-0.8) 10^3/uL 1.26 H Absolute Eosinophils (0.0-0.7) 10^3/uL 0.98 H Absolute Basophils (0.0-0.2) 10^3/uL 0.08 Sodium (136-145) mmol/L Potassium (3.5-5.1) mmol/L Chloride (98-107) mmol/L Carbon Dioxide (21.0-32.0) mmol/L Anion Gap (3-11) mmol/L BUN (7-18) mg/dL Creatinine (0.55-1.02) mg/dL Estimated GFR/1.73 m2 (mL/min/1.73m2) Glucose (74-106) mg/dL Calcium (8.5-10.1) mg/dL Total Bilirubin (0.2-1.0) mg/dL AST (15-37) U/L ALT (14-59) U/L Alkaline Phosphatase (46-116) U/L Total Protein (6.4-8.2) g/dL Albumin (3.4-5.0) g/dL COVID-19 Source SARS-CoV-2 (PCR) Monoscreen (Negative) Negative Influenza Type A (PCR) (Negative) Influenza Type B (PCR) (Negative) RSV (PCR) (Negative) Exam Const General: cooperative, healthy appearing, comfortable and no acute distress Orientation: alert and awake HENMT Head: normal to inspection, normocephalic and atraumatic Face and sinus: normal facial exam Mouth: moist mucous membranes Teeth and gingiva: dentition normal Throat: posterior oropharynx normal Eyes General: appearance normal, both eyes and all related structures Conjunctivae: conjunctivae normal Neck Neck: normal visual inspection, full ROM, trachea midline and supple Other: Mild discomfort in the right subfibular region with minimal fullness Resp Effort & Inspection: normal respiratory effort and able to speak in complete sentences Skin General skin exam: no rashes or lesions noted Neuro General: patient alert, patient awake, moves all extremities and no focal motor deficits Sensory Exam: no sensory deficits noted Psych Appearance: grossly normal Mental Status: mental status grossly normal Sign Out Sign Out Data: Sign Out Comment: 71-year-old female with 2 weeks of right-sided neck pain, swelling, palpable mass and sore throat. She also endorses night sweats, fever or chills. Does have a history of submandibular sialadenitis which she was admitted for in February received IV antibiotics and developed C. difficile. Airway is intact, pending labs, CT neck with IV contrast Last updated by Harriet Blanco, THIERRY at 10/02/21 15:57 Discharge Plan Disposition Patient Disposition: HOME Condition: Stable Discharge Details Clinical Impression: Sialadenitis Primary Care Provider: Venice Mcdonnell ED Provider: Ramses Garcia [place] Meds and New Rx's Prescriptions: New amoxicillin-pot clavulanate 875-125 mg tablet 1 tab PO BID Qty: 14 0RF Continued omeprazole 20 mg capsule,delayed release(DR/EC) 20 mg PO DAILY Qty: 90 4RF Dupixent Pen 300 mg/2 mL pen injector See Rx Instructions .ROUTE .COMPLEX Qty: 4 12RF Rx Instructions: Initial dose: 600mg (4mL) injected subcutaneously once; Maintenance dose: 300mg (2mL) injected subcutaneously every 2 weeks cholecalciferol (vitamin D3) 5,000 UNIT capsule 5,000 unit PO DAILY Label Comments: 04/20/17- Now taking. aj 05/04/16 on hold. si [id number] acid-lutein 1 EACH tablet,chewable 2 ea PO DAILY fluticasone propionate 50 mcg/actuation spray,suspension 2 spray NS DAILY Qty: 29.6 4RF Rx Instructions: 50MCG budesonide-formoterol [Symbicort] 160-4.5 mcg/actuation HFA aerosol inhaler 2 inh INHALATION BID Qty: 30.6 3RF citalopram [Celexa] 20 mg tablet 20 mg PO DAILY Qty: 90 3RF Rx Instructions: dispense generic levalbuterol tartrate [Xopenex HFA] 45 mcg/actuation HFA aerosol inhaler 2 puff Inhalation QID PRN (Reason: shortness of breath) Qty: 4 5RF montelukast 10 mg tablet 10 mg PO DAILY Qty: 90 3RF budesonide-formoterol [Symbicort] 160-4.5 mcg/actuation HFA aerosol inhaler 2 puff inhalation BID Qty: 10.2 3RF prednisone 5 mg tablet 8.5 mg PO DAILY Discharge Instructions Instructions: Sialoadenitis (ED) Additional Instructions: Augmentin as directed. Warm compresses every 2 hours for 20 minutes. Be sure to eat hard candies that are tart to help increase your saliva output. Watch for new or worsening symptoms and return to the ER for any concerns. Lastly, I recommend contacting Dr. Gordillo tomorrow to discuss your ER visit and need for outpatient reevaluation Referrals: Jorge Alberto Gordillo MD [ [facility] STAFF PHYSICIAN] -
[2021-10-02] MEDS: Amoxicillin 875/Clav. 125 TAB PO (18:58)
== END 2021-10-02 19:01 | disposition home or self-care (01) ==
PROVIDERS: Registered Nurse Emergency; Emergency Provider Physician Assistant; PCP Family Medicine
DX: K11.20 Sialoadenitis, unspecified (principal); J02.9 Acute pharyngitis, unspecified; Z20.822 Contact with and (suspected) exposure to COVID-19; Z86.711 Personal history of pulmonary embolism; Z79.01 Long term (current) use of anticoagulants; Z87.891 Personal history of nicotine dependence; Z86.16 Personal history of COVID-19
CPT/HCPCS: 70491; 80053; 87635; 87637; 87880; 99284; 99285; 85025; 86308; 87081

== ENCOUNTER → 2021-12-15 02:07 | Outpatient (CLI) | payer MEDICARE, SELFPAY ==
--- NOTE | 2021-12-15 13:47 | DI.CT_ITS ---
Exam(s) CT CHEST WO EXAM: CT CHEST WO CLINICAL HISTORY: f/u nodules seen on neck ct.R91.8 TECHNIQUE: Imaging Protocol: Axial computed tomography images with coronal and sagittal reformatted images were created and reviewed CONTRAST MATERIAL: Intravenous: Omnipaque 350 Contrast volume:structured data ml. COMPARISON: CT CT NECK W from 10/02/2021 FINDINGS: Tracheobronchial tree: No bronchiectasis or mucous plugging. Mediastinum and Peggy: No dominant adenopathy or fluid collection. Pulmonary parenchyma: Significant interval improvement in bilateral upper lobe areas of nodularity. There is residual scarring and residual mild scattered opacities. Findings are consistent with resol ving inflammatory changes. No dominant measurable mass. Pleura: No effusion or pneumothorax. Heart: The heart is not dilated. Mild coronary artery calcifications are seen. Mitral annular calci fication noted. Aorta: Thoracic aorta non-dilated. Mild atherosclerotic changes. Upper abdomen: Small hiatal hernia. Stable liver cysts. Lymph nodes: Within normal limits. Bones: Degenerative changes. Soft tissues: Unremarkable. IMPRESSION: Significant interval improvement with residual scarring and mild residual scattered inflammatory woods ges in the upper lobes. No persistent mass. RADIATION DOSE DELIVERED: 480.85mGy.cm Total DLP DATA REPOSITORY: All CT scans at this facility are submitted to the National Radiology Data Registry (NRDR) Dose Index Registry (DIR) with the [employer] ([employer]). RADIATION OPTIMIZATION: All CT scans at this facility use at least one of these dose optimization te chniques: automated exposure control; mA and/or kV adjustment per patient size (includes targeted exa ms where dose is matched to clinical indication); or iterative reconstruction.
== END ==
PROVIDERS: PCP Family Medicine; Visit Provider Student in an Organized Health Care Education/Training Program
DX: R91.8 Other nonspecific abnormal finding of lung field (principal); J98.4 Other disorders of lung
CPT/HCPCS: 71250

== ENCOUNTER 2022-03-13 01:14 | Outpatient (RCR) | payer MEDICARE, SELFPAY ==
[2022-03-13] MEDS: Denosumab 60 MG/ML SYR SC (10:04)
== END 2022-03-24 23:59 | disposition home or self-care (01) ==
LOC: INF 01:14
PROVIDERS: PCP Family Medicine; Visit Provider Family Medicine
DX: M81.0 Age-related osteoporosis without current pathological fracture (principal)
CPT/HCPCS: 96372; J0897

== ENCOUNTER 2022-04-21 17:15 | Outpatient (REF) | payer MEDICARE, SELFPAY ==
[2022-04-21 17:53] LABS: Abs Immature Grans 0.06 10^3/uL (0.0-0.06); Absolute Basophil Count 0.16 10^3/uL (0.0-0.2); Absolute Eosinophil Count 1.95 10^3/uL (0.0-0.7); Absolute Monocyte Count 1.48 10^3/uL (0.1-0.8); Absolute Neutrophil Count 9.98 10^3/uL (1.2-6.7); HGB 12.2 g/dL (11.2-15.7); Immature Grans % 0.4; MCHC 32.1 % (32.0-36.0); MCV 93 fL (80-95); MPV 9.2 fL (8.0-11.0); Monocytes % 9.1; Neutrophils % 61.5; Platelet Count 387 10^3/uL (130-400); RBC 4.07 10^6/uL (3.93-5.22); RDW 13.9 % (11.7-14.6); RDW-SD 47.5 fL; WBC 16.22 10^3/uL (4.4-10.8)
== END 2022-04-21 17:16 | disposition home or self-care (01) ==
LOC: LBN 17:15
PROVIDERS: PCP Family Medicine; Visit Provider Physician Assistant Surgical
DX: K21.9 Gastro-esophageal reflux disease without esophagitis (principal)
CPT/HCPCS: 85025

== ENCOUNTER 2022-10-06 15:58 | Emergency (ER) | payer MEDICARE, SELFPAY ==
[2022-10-06 16:01] VITALS: BP 138/88; PULSE 85; RESP 18; TEMP 36.5; O2SAT 97
--- NOTE | 2022-10-06 16:24 | ED.GENADUL_ITS ---
Discharge Plan Discharge Details Chief Complaint: EyeProblem Clinical Impression: Conjunctival abrasion, Cat scratch Primary Care Provider: Venice Mcdonnell ED Provider: Yamile Silvestre Home Meds and New Rx's Prescriptions: No Action Dupixent Pen 300 mg/2 mL pen injector See Rx Instructions .ROUTE .COMPLEX Qty: 4 12RF Rx Instructions: Initial dose: 600mg (4mL) injected subcutaneously once; Maintenance dose: 300mg (2mL) injected subcutaneously every 2 weeks cholecalciferol (vitamin D3) 5,000 UNIT capsule 5,000 unit PO DAILY Patient Comments: 04/20/17- Now taking. aj 05/04/16 on hold. si [id number] acid-lutein 1 EACH tablet,chewable 2 ea PO DAILY fluticasone propionate 50 mcg/actuation spray,suspension 2 spray NS DAILY Qty: 29.6 4RF Rx Instructions: 50MCG montelukast 10 mg tablet 10 mg PO DAILY Qty: 90 3RF budesonide-formoterol [Symbicort] 160-4.5 mcg/actuation HFA aerosol inhaler 2 inh INHALATION BID Qty: 10.2 3RF levalbuterol tartrate [Xopenex HFA] 45 mcg/actuation HFA aerosol inhaler 2 puff Inhalation QID PRN (Reason: shortness of breath) Qty: 4 5RF omeprazole 20 mg capsule,delayed release(DR/EC) 20 mg PO DAILY Qty: 90 4RF citalopram [Celexa] 20 mg tablet 20 mg PO DAILY Qty: 90 4RF Rx Instructions: dispense generic prednisone 1 mg tablet 1 - 2 mg PO DAILY Qty: 100 2RF Rx Instructions: tapering prednisone 5 mg tablet 5 mg PO DAILY Patient Comments: Per pt, 8mg daily (12/19/21) Discharge Instructions Instructions: Abrasion (ED) Additional Instructions: 1. Continue ofloxacin eyedrops as previously prescribed. 2. [facility] ophthalmology will be calling you for a follow-up appointment. 3. Take acetaminophen as needed for pain. 4. Return here for any new or worrisome symptoms, such as worsening visual problems, purulent discharge worsening redness or any concerns. Discharge Data Discharge Physician: Yamile Silvestre Medical Decision Making This is a 72-year-old female who is scratched in her sleep by her cat 3 weeks ago and was seen in [facility] and was placed on ofloxacin ophthalmic drops. She comes in today with concerns for cat scratch fever and stating that her vision is blurry. Per nursing staff her visual acuity is normal with corrective glasses on. Under slit lamp the globe is intact without hyphema or cell and flare. She has a mild superficial conjunctival abrasion on the medial aspect of the right eye. I am not concerned about cat scratch fever since she does not have any adenopathy or fevers. I do not have a reason on physical exam to account for her blurry vision. My plan is to reassure her update her tetanus shot and refer her to [facility] eye [facility]. I will advise her to continue the ofloxacin and to return for any new or worrisome symptoms Differential Diagnosis Differential Diagnosis: Conjunctival abrasion of the right eye not involving the globe. Medical Records Medical records reviewed: Yes I reviewed the patient's medical records. HPI General Date/Time Provider Initiated Documentation: 10/06/22 16:23 . History of Present Illness with intensity rated at 5. Patient reports no radiation. HPI Narrative: Time seen was 1641 in bed 11. The patient is a 72-year-old female who presents with 3 weeks of redness in the right eye. She believes that she may have been scratched by her cat 3 weeks ago. She does have a history of lens implants for cataracts 6 years ago. She does wear prescription glasses. She was unable to arrange an appoint with her eye doctor or primary care provider. She was seen 3 days ago in [facility] and given ofloxacin otic solution. She is complaining of 5 out of 10 eye pain which is associated with what she describes as blurry vision on the medial aspect of the vision in her right eye. She does endorse redness. She denies any purulent discharge or fever. She tells me she has a history of cat scratch fever in the past. She says she is not up-to-date on her tetanus. She says that the blurriness is constant denies any other aggravating or alleviating factors. She denies any lymphadenopathy fever or chills. She is not up-to-date on her tetanus booster. She has a history of a Gurjit fundoplication for severe GE reflux and can only take medication that she grinds up or that is liquid. She said she took A Tylenol today with minimal relief. Related Data Home Medications Medication Instructions Recorded Confirmed cholecalciferol (vitamin D3) 125 5,000 unit PO DAILY 05/04/16 10/06/22 mcg (5,000 unit) capsule multivit with min-folic 2 ea PO DAILY 05/04/16 10/06/22 acid-lutein 200 mcg-137.5 mcg chewable tablet fluticasone propionate 50 2 spray NS DAILY #29.6 mL 01/17/21 10/06/22 mcg/actuation nasal spray,suspension dupilumab 300 mg/2 mL subcutaneous See Rx Instructions .Route 05/14/21 10/06/22 pen injector ([employer]) .COMPLEX #4 mL prednisone 5 mg tablet 5 mg PO DAILY 12/19/21 10/06/22 montelukast 10 mg tablet 10 mg PO DAILY #90 tab-caps 04/23/22 10/06/22 Symbicort 160 mcg-4.5 2 inh inhalation BID Asthma #10.2 04/27/22 10/06/22 mcg/actuation HFA aerosol inhaler grams (budesonide-formoterol) levalbuterol tartrate 45 2 puff inhalation QID PRN 04/28/22 10/06/22 mcg/actuation aerosol inhaler shortness of breath ##4 (Xopenex HFA) omeprazole 20 mg capsule,delayed 20 mg PO DAILY #90 caps 07/06/22 10/06/22 release citalopram 20 mg tablet (Celexa) 20 mg PO DAILY #90 tab-caps 07/27/22 10/06/22 prednisone 1 mg tablet 1 - 2 mg PO DAILY #100 tabs 08/05/22 10/06/22 Previous Rx's Medication Instructions Recorded fluticasone propionate 50 2 spray NS DAILY #29.6 mL 01/17/21 mcg/actuation nasal spray,suspension dupilumab 300 mg/2 mL subcutaneous See Rx Instructions .Route 05/14/21 pen injector ([facility]) .COMPLEX #4 mL montelukast 10 mg tablet 10 mg PO DAILY #90 tab-caps 04/23/22 Symbicort 160 mcg-4.5 2 inh inhalation BID Asthma #10.2 04/27/22 mcg/actuation HFA aerosol inhaler grams (budesonide-formoterol) levalbuterol tartrate 45 2 puff inhalation QID PRN 04/28/22 mcg/actuation aerosol inhaler shortness of breath ##4 (Xopenex HFA) omeprazole 20 mg capsule,delayed 20 mg PO DAILY #90 caps 07/06/22 release citalopram 20 mg tablet (Celexa) 20 mg PO DAILY #90 tab-caps 07/27/22 prednisone 1 mg tablet 1 - 2 mg PO DAILY #100 tabs 08/05/22 Allergies Allergy/AdvReac Type Severity Reaction Status Date / Time sulfite Allergy Unknown ASTHMA Verified 10/06/22 16:04 General Stated Complaint: EyeProblem SURENDRA: 4 Review of Systems Constitutional Constitutional: Denies chills and Denies fever(s) Eyes Comments: Redness in the right eye on the medial aspect with blurriness ENT Ears, Nose, Mouth, and Throat: Reports system reviewed and no additional complaints, except as documented Cardiovascular Cardiovascular: Reports as per HPI Respiratory Respiratory: Reports as per HPI Comments: The patient has history of asthma denies any shortness of breath Neurologic Comments: The patient states she has a resting tremor Allergic/Immunologic Comments: The patient denied any history of immune compromise but is on prednisone 5 mg daily PFSH All Active Problems Conjunctival abrasion (Acute) Cat scratch (Acute) Sleep apnea (Chronic 01/26/17) CANNOT TOLERATE MOUTH APPLIANCE 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 colonoscopy Asthma (Chronic 01/05/11) severe Anxiety (Chronic) Medical History Anticoagulated on warfarin Clostridioides difficile diarrhea COVID COVID-19 Onset 10/31/21 Vaccinated, boosted Dehydration Depressive disorder History of pulmonary embolus (PE) (06/22/13) 06/22/13 History of pulmonary embolus (PE) (06/22/13) History of sore throat Lesion of liver (07/04/13) Nasal polyp (10/24/08) Steroid side effects (02/04/16) Submandibular sialoadenitis (~12/2020) admitted to hospital secondary to infection. Managed with fluids, augmentin. Vitamin D deficiency (03/03/16) Surgical History Colonoscopy - MAC (~2001) NEG EGD - MAC + GERD Extraction of cataract Hernia repair 04/10 History of cataract removal with insertion of prosthetic lens History of nasal polypectomy (12/25/13) Gurjit Fundoplication 04/10 POLYPECTOMY Family History Mother , 95 Essential hypertension PACEMAKER Heart disease Skin cancer Father , 43 Diabetes Essential hypertension Heart disease Brother Diabetes Hyperlipidemia Maternal Aunt Diabetes Brother Diabetes Heart disease Depression Brother Arthritis Paternal Grandfather , 60s Diabetes Maternal Grandfather , 90s Diabetes Maternal Grandmother , 97 No problems noted. Paternal Grandmother , 80s No problems noted. Brother No problems noted. Brother No problems noted. Social History Smoking/Tobacco Use Status: Former Tobacco Use Quit Date: 07/23/1968 Tobacco: How many years used: 2 Second Hand Exposure: Yes Smoking risk assessment performed?: Yes Alcohol Intake: current Alcohol Intake frequency: holidays/special occasions only Alcohol type: beer, wine and hard liquor Drug use: Never Substance use type: does not use Counseling given: No Counseling provided: none Caregiver/Support person: No Household members: spouse Housing: house Communication Needs: None Do you need help understanding health information?: Rarely Pets and animals: Yes Pets and animals: cat(s) Sexually active: Yes Do you think of yourself as: straight/heterosexual Current gender identity: female What is your relationship status?: How often do you talk on the phone with friends or family?: twice per week How often do you get together with friends or relatives?: once per week Do you belong to any clubs or organized social groups?: no Panel score (0-1 are the most socially isolated patients): 2 What type of physical activity do you participate in: walking, swimming and other Details: House work, Yard work Duration: 30-45 minutes/day Frequency: 3-4 times per week Arabella/Mandaeism: Zoroastrianism Special arabella needs: No Seatbelt use: always Helmet use: No Drive intox 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 Const General: cooperative, healthy appearing, comfortable, no acute distress, well developed, well groomed and well hydrated Nutritional Appearance: average body habitus and well nourished Orientation: alert, awake and oriented x3 HENMT Head: normal to inspection, normocephalic and atraumatic Ears: hearing grossly normal bilaterally and external ears normal General nose exam: external nose normal, nares normal and no nasal discharge Face and sinus: normal facial exam, sinuses nontender and face symmetric Mouth: oral mucosae normal, lip normal, tongue normal, oropharynx normal, moist mucous membranes and other (Normal phonation. The patient is handling secretions.) Throat: posterior oropharynx normal and uvula midline Eyes Other: Her pupils are equal round react light and accommodation. Extraocular muscles are intact. Her lids are normal bilaterally. There is injection of the conjunctiva on the medial aspect of the right eye. After instillation of fluorescein and tetracaine in the right eye under slit lamp examination the anterior chamber was clear. There was a small abrasion of the conjunctiva with a subconjunctival hemorrhage on the medial aspect of the right eye. There is no purulent discharge. There is no hyphema or cell and flare. No significant photophobia Neck Neck: normal visual inspection, full ROM, no lymphadenopathy, no meningeal signs, trachea midline and supple Lymphatic: no lymphadenopathy noted Resp Effort & Inspection: normal respiratory effort, able to speak in complete sentences, no audible wheezes, no nasal flaring, no respiratory distress, no retractions, no stridor, not tachypneic, no tracheal deviation, no use of accessory muscles, No prolonged expiratory phase and other (Normal inspiratory to expiratory ratio.) Auscultation: clear to auscultation bilaterally, no rales, no rhonchi, no wheezes and no rubs Tactile Fremitus: tactile fremitus absent Cardio Jugular venous pressure: no JVD Palpation: normal PMI Rate: regular rate Rhythm: regular rhythm Heart Sounds: S1 normal, S2 normal, no gallops, no murmurs and no rubs GI Inspection: non-distended Palpation: soft, no guarding and nontender Auscultation: normal bowel sounds General: CVA tenderness Skin General skin exam: no rashes or lesions noted, turgor normal, no petechiae, no purpura and other (Skin is normal for ethnicity.) Lesions: no lesions Rashes: no rashes Trauma: no lacerations or abrasions Neuro General: patient alert, patient awake, patient oriented x3, moves all extremities, no meningeal signs, no focal motor deficits and CN's II-XI intact bilaterally Cranial Nerves: CN's II-XI intact bilaterally, PERRL, accommodation normal, EOM intact bilaterally, no nystagmus, facial strength normal, tongue midline and hearing normal Cognition: normal cognition Speech: speech normal Gait: normal gait Motor: muscle tone normal throughout and strength 5/5 throughout Sensory Exam: no sensory deficits noted Other: The patient does have a mild resting tremor Extrem General: full ROM, capillary refill normal and no clubbing, cyanosis or edema Psych Appearance: grossly normal Affect: normal affect Attitude: cooperative Thought Process: normal Thought Content: normal Insight: insight good Judgment: judgment good Other: The patient appears to have capacity make medical decisions. Course Reevaluation(s) Initial Evaluation: I have advised the patient to return for any new or worrisome symptoms. I have advised her to continue her ofloxacin ophthalmic drops as previously directed. The patient was understanding agreement with the discharge plan. All her questions and concerns were addressed prior to discharge Vital Signs Vital signs: Vital Signs Temperature 36.5 C 10/06/22 16:01 Pulse 85 10/06/22 16:01 Respiratory Rate 18 10/06/22 16:01 Blood Pressure 138/88 10/06/22 16:01 Pulse Oximetry 97 10/06/22 16:01 Temperature 36.5 C 10/06/22 16:01 Temperature Source Temporal Artery Scan 10/06/22 16:01 Pulse 85 10/06/22 16:01 Respiratory Rate 18 10/06/22 16:01 Respiratory Effort Normal, Non-Labored 10/06/22 16:05 Blood Pressure 138/88 10/06/22 16:01 Blood Pressure Position Sitting 10/06/22 16:01 Pulse Oximetry 97 10/06/22 16:01 Oxygen Delivery Method Room Air 10/06/22 16:01 Oxygen Flow Rate 0 10/06/22 16:01
[2022-10-06] MEDS: Tetracaine 0.5% 4 ML BTL (16:44)
[2022-10-06] MEDS: Fluorescein STRIPS 100/BOX 1 MG (16:44)
--- NOTE | 2022-10-06 16:57 | SUR.INTRAOP ---
referral to [facility] via dr rodriguez
== END 2022-10-06 17:16 | disposition home or self-care (01) ==
LOC: ER 16:52
PROVIDERS: Emergency Provider Emergency Medicine Emergency Medical Services; PCP Family Medicine
DX: S05.01XA Injury of conjunctiva and corneal abrasion without foreign body, right eye, initial encounter (principal); W55.03XA Scratched by cat, initial encounter
CPT/HCPCS: 90471; 99284; 99283

== ENCOUNTER 2022-10-15 08:05 | Emergency (ER) | payer MEDICARE, SELFPAY ==
[2022-10-15 08:10] VITALS: BP 125/67; PULSE 90; RESP 15; TEMP 36.6; O2SAT 94
--- NOTE | 2022-10-15 08:15 | DI.CT_ITS ---
Exam(s) CT FACIAL W EXAM: CT FACIAL W CLINICAL HISTORY: right orbit and face pain. TECHNIQUE: Imaging Protocol: Axial computed tomography images with coronal and sagittal reformatted images were created and reviewed. IV contrast: Omnipaque 350-75 mL COMPARISON: CT CT NECK W from 10/02/2021 FINDINGS: MAXILLOFACIAL CT SCAN: Osseous: No facial fractures identified. Paranasal sinuses: There is evidence of previous endoscopic surgery with surgical defects in the wall s of both maxillary sinuses. There is chronic-type periosteal thickening of all the reynoso of both ma xillary sinuses. No soft tissue densities nor fluid levels therein. There is some mild mucosal thic kening noted in the right sphenoid sinus with small amount of fluid therein. There has been resectio n of ethmoidal air cells. No fluid nor masses at this level. No focal findings in the frontal sinus es. Mastoid air cells are clear Orbits: There is no evidence of facial fractures nor orbital blowout fracture. No findings retro conal atilio rtments and optic nerves. Possible bilateral cataract surgery. Lacrimal glands unremarkable. Extra ocular muscles symmetrical/unremarkable. Other: There are dilated ducts in both submandibular glands noted. This patient has a history of sub mandibular gland calculi. There presently no obvious intra gland calculi nor obvious calculi in the bilateral [place]'s ducts. Parotid glands appear unremarkable. IMPRESSION: No acute orbital findings evident. No Arnold fractures. Evidence of previous endoscopic paranasal sinus surgery. No evidence of acute sinusitis. Dilatation of intraglandular ducts within both submandibular glands again noted. There is a history of prior bilateral submandibular gland lithiasis. There are no radiopaque calculi seen at this time. RADIATION DOSE DELIVERED: 486.55mGy.cm Total DLP DATA REPOSITORY: All CT scans at this facility are submitted to the National Radiology Data Registry (NRDR) Dose Index Registry (DIR) with the [employer] (ACR). RADIATION OPTIMIZATION: All CT scans at this facility use at least one of these dose optimization te chniques: automated exposure control; mA and/or kV adjustment per patient size (includes targeted exa ms where dose is matched to clinical indication); or iterative reconstruction.
--- NOTE | 2022-10-15 08:31 | ED.GENADUL_ITS ---
Discharge Plan Disposition Patient Disposition: Home Condition: Stable Discharge Details Clinical Impression: Ocular pain, right eye Primary Care Provider: Venice Mcdonnell ED Provider: Juanito Duncan Home Meds and New Rx's Prescriptions: Continued Dupixent Pen 300 mg/2 mL pen injector See Rx Instructions .ROUTE .COMPLEX Qty: 4 12RF Rx Instructions: Initial dose: 600mg (4mL) injected subcutaneously once; Maintenance dose: 300mg (2mL) injected subcutaneously every 2 weeks cholecalciferol (vitamin D3) 5,000 UNIT capsule 5,000 unit PO DAILY Patient Comments: 04/20/17- Now taking. aj 05/04/[id number] acid-lutein 1 EACH tablet,chewable 2 ea PO DAILY fluticasone propionate 50 mcg/actuation spray,suspension 2 spray NS DAILY Qty: 29.6 4RF Rx Instructions: 50MCG montelukast 10 mg tablet 10 mg PO DAILY Qty: 90 3RF budesonide-formoterol [Symbicort] 160-4.5 mcg/actuation HFA aerosol inhaler 2 inh INHALATION BID Qty: 10.2 3RF levalbuterol tartrate [Xopenex HFA] 45 mcg/actuation HFA aerosol inhaler 2 puff Inhalation QID PRN (Reason: shortness of breath) Qty: 4 5RF omeprazole 20 mg capsule,delayed release(DR/EC) 20 mg PO DAILY Qty: 90 4RF citalopram [Celexa] 20 mg tablet 20 mg PO DAILY Qty: 90 4RF Rx Instructions: dispense generic prednisone 1 mg tablet 1 - 2 mg PO DAILY Qty: 100 2RF Rx Instructions: tapering TobraDex 0.3-0.1 % ointment See Rx Instructions .ROUTE .COMPLEX Patient Comments: APPLY 1/4 INCH RIBBON INTO RIGHT EYE THREE TIMES A DAY FOR 7 DAYS Rx Instructions: Apply 1/4 inch ribbon into right eye TID for 7 days prednisone 5 mg tablet 5 mg PO DAILY Patient Comments: Per pt, 8mg daily (12/19/21) Discharge Instructions Additional Instructions: Your blood work and cat scan did not show concerning findings at this time follow up with [facility] eye care within a week especially if not improving restart the ofloxacin drops if you feel more ill, have severe worsening pain or changes in vision return to the emergency department Medical Decision Making 72 yo female with hx of asthma, gerd, who comes in with cc of right eye pain. Over 2 weeks ago while she was sleeping her cat scratched her right eye. She went to express care and was put on ofloxacin drops, did not improve significantly so came here and had slit lamp exam done which was reassuring other then a small abrasion. She then followed up with [facility] eye care and was told she had an abrasion that was healing. She states she was doing better but then overnight started to have increased pain on the surface of the eye and radiated to her right cheek. She denies fevers, chills, changes in vision. She has mild swelling of voth eyelids, no periorbital swelling, eomi, perrl. She does have some erythema of the right conjunctiva medially. She has iop 16 in both eyes. Given continued pain and now being referrred to her cheek will obtain ct to evaluate for possible orbital cellulitis though she has no pain with movement of her eyes. Will also place tetracaine and perform another flourescein exam no evidence of globe rupture or abrasion on flourescein exam. CT shows no acute findings. Will have her restart ofloxacin drops and [facility] return precautions given Differential Diagnosis Differential Diagnosis: conjunctivitis, orbital cellulitis, periorbital cellulitis Medical Records Medical records reviewed: Yes I reviewed the patient's medical records. Lab Data Lab results reviewed: Yes I reviewed the patient's lab results. HPI General Mode of arrival: ambulatory . Date/Time Provider Initiated Documentation: 10/15/22 08:10 . Limitations to Documentation: no limitations . Information obtained by: patient . History of Present Illness 72 year old F presents to the emergency department with the chief complaint of right eye pain, described as moderate, Quality is described as aching, Patient started experiencing this day(s) (14) and it has been intermittent. No relieving factors improve symptom(s), No exacerbating factors reported . Patient notes denies fever/chills. Patient did receive the following treatments prior to arrival, none Related Data Home Medications Medication Instructions Recorded Confirmed cholecalciferol (vitamin D3) 125 5,000 unit PO DAILY 05/04/16 10/15/22 mcg (5,000 unit) capsule multivit with min-folic 2 ea PO DAILY 05/04/16 10/15/22 acid-lutein 200 mcg-137.5 mcg chewable tablet fluticasone propionate 50 2 spray NS DAILY #29.6 mL 01/17/21 10/15/22 mcg/actuation nasal spray,suspension dupilumab 300 mg/2 mL subcutaneous See Rx Instructions .Route 05/14/21 10/15/22 pen injector ([employer]) .COMPLEX #4 mL prednisone 5 mg tablet 5 mg PO DAILY 12/19/21 10/15/22 montelukast 10 mg tablet 10 mg PO DAILY #90 tab-caps 04/23/22 10/15/22 Symbicort 160 mcg-4.5 2 inh inhalation BID Asthma #10.2 04/27/22 10/15/22 mcg/actuation HFA aerosol inhaler grams (budesonide-formoterol) levalbuterol tartrate 45 2 puff inhalation QID PRN 04/28/22 10/15/22 mcg/actuation aerosol inhaler shortness of breath ##4 (Xopenex HFA) omeprazole 20 mg capsule,delayed 20 mg PO DAILY #90 caps 07/06/22 10/15/22 release citalopram 20 mg tablet (Celexa) 20 mg PO DAILY #90 tab-caps 07/27/22 10/15/22 prednisone 1 mg tablet 1 - 2 mg PO DAILY #100 tabs 08/05/22 10/15/22 tobramycin-dexamethasone 0.3 %-0.1 See Rx Instructions .Route .COMPLEX 10/15/22 10/15/22 % eye ointment (TobraDex) Previous Rx's Medication Instructions Recorded fluticasone propionate 50 2 spray NS DAILY #29.6 mL 01/17/21 mcg/actuation nasal spray,suspension dupilumab 300 mg/2 mL subcutaneous See Rx Instructions .Route 05/14/21 pen injector ([employer] .COMPLEX #4 mL montelukast 10 mg tablet 10 mg PO DAILY #90 tab-caps 04/23/22 Symbicort 160 mcg-4.5 2 inh inhalation BID Asthma #10.2 04/27/22 mcg/actuation HFA aerosol inhaler grams (budesonide-formoterol) levalbuterol tartrate 45 2 puff inhalation QID PRN 04/28/22 mcg/actuation aerosol inhaler shortness of breath ##4 (Xopenex HFA) omeprazole 20 mg capsule,delayed 20 mg PO DAILY #90 caps 07/06/22 release citalopram 20 mg tablet (Celexa) 20 mg PO DAILY #90 tab-caps 07/27/22 prednisone 1 mg tablet 1 - 2 mg PO DAILY #100 tabs 08/05/22 Allergies Allergy/AdvReac Type Severity Reaction Status Date / Time sulfite Allergy Unknown ASTHMA Verified 10/15/22 08:17 General Stated Complaint: EyeProblem SURENDRA: 4 Review of Systems All systems reviewed & are unremarkable except as noted in HPI and below Constitutional Constitutional: Denies chills, Denies fever(s) and Denies weakness Eyes Eyes: Denies loss of vision Cardiovascular Cardiovascular: Denies chest pain and Denies dyspnea Respiratory Respiratory: Denies cough and Denies dyspnea Gastrointestinal Gastrointestinal: Denies abdominal pain, Denies nausea and Denies vomiting Musculoskeletal Musculoskeletal: Denies joint swelling Neurologic Neurologic: Denies loss of vision and Denies weakness PFSH All Active Problems (Updated 10/15/22 @ 10:35 by Juanito Duncan MD) Conjunctival abrasion (Acute) Cat scratch (Acute) Ocular pain, right eye (Acute) Sleep apnea (Chronic 01/26/17) CANNOT TOLERATE MOUTH APPLIANCE 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 colonoscopy Asthma (Chronic 01/05/11) severe Anxiety (Chronic) Medical History Anticoagulated on warfarin Clostridioides difficile diarrhea COVID COVID-19 Onset 10/31/21 Vaccinated, boosted Dehydration Depressive disorder History of pulmonary embolus (PE) (06/22/13) 06/22/13 History of pulmonary embolus (PE) (06/22/13) History of sore throat Lesion of liver (07/04/13) Nasal polyp (10/24/08) Steroid side effects (02/04/16) Submandibular sialoadenitis (~12/2020) admitted to hospital secondary to infection. Managed with fluids, augmentin. Vitamin D deficiency (03/03/16) Surgical History Colonoscopy - MAC (~2001) NEG EGD - MAC + GERD Extraction of cataract Hernia repair 04/10 History of cataract removal with insertion of prosthetic lens History of nasal polypectomy (12/25/13) Gurjit Fundoplication 04/10 POLYPECTOMY Family History Mother , 95 Essential hypertension PACEMAKER Heart disease Skin cancer Father , 43 Diabetes Essential hypertension Heart disease Brother Diabetes Hyperlipidemia Maternal Aunt Diabetes Brother Diabetes Heart disease Depression Brother Arthritis Paternal Grandfather , 60s Diabetes Maternal Grandfather , 90s Diabetes Maternal Grandmother , 97 No problems noted. Paternal Grandmother , 80s No problems noted. Brother No problems noted. Brother No problems noted. Social History Smoking/Tobacco Use Status: Former Tobacco Use Quit Date: 07/23/1968 Tobacco: How many years used: 2 Second Hand Exposure: Yes Smoking risk assessment performed?: Yes Alcohol Intake: current Alcohol Intake frequency: holidays/special occasions only Alcohol type: beer, wine and hard liquor Drug use: Never Substance use type: does not use Counseling given: No Counseling provided: none Caregiver/Support person: No Household members: spouse Housing: house Communication Needs: None Do you need help understanding health information?: Rarely Pets and animals: Yes Pets and animals: cat(s) Sexually active: Yes Do you think of yourself as: straight/heterosexual Current gender identity: female What is your relationship status?: How often do you talk on the phone with friends or family?: twice per week How often do you get together with friends or relatives?: once per week Do you belong to any clubs or organized social groups?: no Panel score (0-1 are the most socially isolated patients): 2 What type of physical activity do you participate in: walking, swimming and other Details: House work, Yard work Duration: 30-45 minutes/day Frequency: 3-4 times per week Arabella/Mandaen: Restorationism Special arabella needs: No Seatbelt use: always Helmet use: No Drive intox or ride 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: No Do you feel safe at home: Yes Do you feel safe in your relationship?: Yes History History 1 Para Hx # Term Pregnancies Multiple births Hx # Pregnancies Ectopic pregnancies AB induced Hx Number of Living Children AB spontaneous Exam Const General: no acute distress Orientation: alert HENMT Head: normal to inspection Ears: external ears normal General nose exam: external nose normal Mouth: moist mucous membranes Eyes Periorbital: periorbital findings normal Pupils: PERRL Neck Neck: normal visual inspection Resp Effort & Inspection: normal respiratory effort and able to speak in complete sentences Cardio Rate: regular rate Skin General skin exam: no rashes or lesions noted Neuro General: patient alert and patient oriented x3 Extrem General: normal to inspection Psych Mental Status: mental status grossly normal Course Vital Signs Vital signs: Vital Signs Temperature 36.6 C 10/15/22 08:10 Pulse 90 10/15/22 08:10 Respiratory Rate 15 10/15/22 08:10 Blood Pressure 125/67 10/15/22 08:10 Pulse Oximetry 94 10/15/22 08:10 Temperature 36.6 C 10/15/22 08:10 Temperature Source Oral 10/15/22 08:10 Pulse 90 10/15/22 08:10 Respiratory Rate 15 10/15/22 08:10 Respiratory Effort Normal 10/15/22 08:14 Blood Pressure 125/67 10/15/22 08:10 Blood Pressure Position Sitting 10/15/22 08:10 Pulse Oximetry 94 10/15/22 08:10 Oxygen Delivery Method Room Air 10/15/22 08:10 Oxygen Flow Rate 0 10/15/22 08:10 Pain Level 8 10/15/22 08:10
[2022-10-15] MEDS: Balanced Salt Solution 15 ML BTL OP (08:41)
[2022-10-15] MEDS: Tetracaine 0.5% 4 ML BTL OP (08:42)
[2022-10-15] MEDS: Fluorescein STRIPS 100/BOX 1 MG OP (08:42)
[2022-10-15 08:49] LABS: HCT 38.6 % (36.0-46.0); HGB 12.5 g/dL (11.2-15.7); MCH 29.1 pg (27.0-33.0); MCHC 32.4 % (32.0-36.0); MCV 90 fL (80-95); MPV 8.6 fL (8.0-11.0); Platelet Count 405 10^3/uL (130-400); RDW 14.1 % (11.7-14.6); RDW-SD 46.2 fL; WBC 11.81 10^3/uL (4.4-10.8)
[2022-10-15 09:17] LABS: Absolute Eosinophil Count 3.07 10^3/uL (0.0-0.7); Absolute Monocyte Count 1.06 10^3/uL (0.1-0.8); Absolute Neutrophil Count 3.78 10^3/uL (1.2-6.7)
[2022-10-15 09:18] LABS: Diff Comment Manual Differential
[2022-10-15 09:22] LABS: ALT 22 U/L (14-59); AST 24 U/L (15-37); Albumin 3.2 g/dL (3.4-5.0); Alkaline Phosphatase 59 U/L (46-116); BUN 15 mg/dL (7-18); Bilirubin, Total 0.3 mg/dL (0.2-1.0); CREATININE 0.8 mg/dL (0.55-1.02); Calcium 9.7 mg/dL (8.5-10.1); Chloride 100 mmol/L (98-107); Estimated GFR 78.24 (mL/min/1.73m2); Glucose 107 mg/dL (74-106); Sodium 138 mmol/L (136-145); Total Protein 7.3 g/dL (6.4-8.2)
[2022-10-15] MEDS: Normal Saline - Diluent 50 ML VIAL IJ (09:36)
[2022-10-15] MEDS: Omnipaque 350 MG/ML 500 ML BTL-Imaging package IJ (09:37)
== END 2022-10-15 10:56 | disposition home or self-care (01) ==
PROVIDERS: Emergency Provider Emergency Medicine; PCP Family Medicine
DX: H57.11 Ocular pain, right eye (principal)
CPT/HCPCS: 36415; 80053; 99285; 70487; 85025; 99284

== ENCOUNTER → 2022-12-21 02:35 | Outpatient (CLI) | payer MEDICARE, SELFPAY ==
--- NOTE | 2022-12-21 09:30 | DI.MAMMO_ITS ---
Exam(s) MAMMO SCREENING EXAM: MAMMO SCREENING CLINICAL HISTORY: screening,Z12.39 TECHNIQUE: Mammograms were interpreted according to the usual protocol including computer analysis w [employer] CAD system, tomosynthesis and C-view imaging. COMPARISON: 2013 through 2020 FINDINGS: The breasts are composed of scattered fibroglandular densities, Breast Density category B. No suspicious masses or suspicious microcalcifications are seen. No skin thickening or abnormal axillary lymph nodes are seen. There has been no significant change from prior exams. IMPRESSION: BI-RADS Category 1, Negative mammogram Yearly screening mammography is recommended. Breast Density - Category B, scattered fibroglandular densities. A negative radiographic report should not delay biopsy if a dominant or clinically suspicious mass is present. Up to ten percent of cancers are not identified on mammography. A negative report may reinforce clinical impression. Adenosis and dense breasts may obscure an underlying neoplasm. False positive reports average 6 to 10%. Patient will receive a letter notifying them of these results.
== END ==
PROVIDERS: PCP Family Medicine; Visit Provider Family Medicine
DX: Z12.31 Encounter for screening mammogram for malignant neoplasm of breast (principal)
CPT/HCPCS: 77063; 77067

== ENCOUNTER 2023-01-13 11:04 | Outpatient (CLI) | payer MEDICARE, SELFPAY ==
[2023-01-13 14:31] LABS: ESR 10 mm/hr (0-30); HCT 37.3 % (36.0-46.0); HGB 12.3 g/dL (11.2-15.7); MCH 30.5 pg (27.0-33.0); MCV 93 fL (80-95); MPV 8.4 fL (8.0-11.0); Platelet Count 347 10^3/uL (130-400); RBC 4.03 10^6/uL (3.93-5.22); RDW 13.2 % (11.7-14.6); RDW-SD 44.7 fL; WBC 10.14 10^3/uL (4.4-10.8)
[2023-01-13 15:15] LABS: C-Reactive Protein 0.29 mg/dL (0.0-0.3)
== END 2023-01-13 11:05 | disposition home or self-care (01) ==
LOC: LBO 11:04
PROVIDERS: PCP Family Medicine; Visit Provider Student in an Organized Health Care Education/Training Program
DX: R51.9 Headache, unspecified (principal); H57.89 Other specified disorders of eye and adnexa
CPT/HCPCS: 36415; 85027; 85652; 86140

== ENCOUNTER → 2023-01-19 13:10 | Outpatient (BNVA) | payer MEDICARE, SELFPAY | PROVIDERS: PCP Family Medicine; Referring Provider Family Medicine; Visit Provider Physician Assistant Surgical | DX: J45.909 Unspecified asthma, uncomplicated (principal); Z79.51 Long term (current) use of inhaled steroids; K21.9 Gastro-esophageal reflux disease without esophagitis; G47.30 Sleep apnea, unspecified | CPT/HCPCS: 99214 ==

== ENCOUNTER 2023-02-05 02:40 | Outpatient (CLI) | payer MEDICARE, SELFPAY ==
[2023-02-05 10:50] LABS: Abs Immature Grans 0.02 10^3/uL (0.0-0.06); Absolute Basophil Count 0.11 10^3/uL (0.0-0.2); Absolute Eosinophil Count 1.04 10^3/uL (0.0-0.7); Absolute Monocyte Count 0.83 10^3/uL (0.1-0.8); Absolute Neutrophil Count 4.53 10^3/uL (1.2-6.7); Basophils % 1.2; Eosinophils % 11.6; HCT 35.2 % (36.0-46.0); HGB 11.5 g/dL (11.2-15.7); Immature Grans % 0.2; Lymphocytes % 26.9; MCH 30.7 pg (27.0-33.0); MCHC 32.7 % (32.0-36.0); MCV 94 fL (80-95); MPV 8.6 fL (8.0-11.0); Monocytes % 9.3; Neutrophils % 50.8; Platelet Count 310 10^3/uL (130-400); RBC 3.75 10^6/uL (3.93-5.22); RDW-SD 44.6 fL; WBC 8.93 10^3/uL (4.4-10.8)
[2023-02-05 11:04] LABS: ESR 22 mm/hr (0-30)
[2023-02-05 11:21] LABS: C-Reactive Protein 0.39 mg/dL (0.0-0.3)
[2023-02-05 17:55] LABS: Rheumatoid Factor <8.6 IU/mL (<12.0)
[2023-02-08 09:21] LABS: Cyclic Citrullinated Peptide <2.5 U/mL (<5.0)
[2023-02-08 15:57] LABS: ANA Interpretation Negative (Negative)
== END 2023-02-05 02:41 | disposition home or self-care (01) ==
LOC: LBO 02:47
PROVIDERS: PCP Family Medicine; Visit Provider Family Medicine
DX: Z12.31 Encounter for screening mammogram for malignant neoplasm of breast (principal)
CPT/HCPCS: 36415; 85652; 86200; 85025; 86038; 86140; 86431

== ENCOUNTER 2023-03-22 03:11 | Outpatient (RCR) | payer MEDICARE, SELFPAY ==
[2023-03-22] MEDS: Denosumab 60 MG/ML SYR SC (13:00)
== END 2023-03-24 23:59 | disposition home or self-care (01) ==
LOC: INF 03:11
PROVIDERS: PCP Family Medicine; Visit Provider Family Medicine
DX: M81.0 Age-related osteoporosis without current pathological fracture (principal)
CPT/HCPCS: 96372; J0897

== ENCOUNTER → 2023-03-23 01:24 | Outpatient (CLI) | payer MEDICARE, SELFPAY ==
--- NOTE | 2023-03-23 07:15 | DI.MRI_ITS ---
Exam(s) MR BRAIN ORBIT FACE NECK WO/W EXAM: MR BRAIN ORBIT FACE NECK WO/W CLINICAL HISTORY: persistent (4m) eye red after cat scratch,? abscesS,[id number] TECHNIQUE: Multiplanar multisequence MRI of the brain was performed. Both pre and postcontrast sequ ences were performed. Chest injected was 14 mL Dot[employer] COMPARISON: No exams were available for comparison FINDINGS: BRAIN MRI: There is no evidence of intracranial hemorrhage, mass effect, nor shift of midline structures. There are no extra-axial fluid collections. The ventricles are not enlarged or shifted and there is no bl ood within the ventricular system nor within the basal cisterns. There is no abnormal signal in the cerebellar hemispheres nor within the ling, midbrain, and thalami. There is a E small signal of FLAIR bright signal abnormality measuring 4 x 4 mm located just above the right sylvian fissure. This is a nonspecific finding and is not associated with hemorrhage, surr ounding edema, nor restricted diffusion on DWI. There are no foci of signal abnormality on diffusion imaging to suggest acute ischemic event in the brain. There are no ring enhancing lesions in the brain. There is no abnormal meningeal enhancement. Pituitary gland appears unremarkable are. Cavernous sinuses unremarkable. Expected flow voids are noted. There is no evidence of obvious aneurysm nor obvious vascular malform ation. Paranasal sinuses exhibit surgical defects in the medial reynoso of both maxillary sinuses. There has also been resection of the middle turbinates. Small retention cysts noted in the posterior aspect of the right maxillary sinus. Mild mucosal thickening in the maxillary sinuses. No fluid levels. Oth er paranasal sinuses are clear as are the mastoid air cells. ORBITS MRI: No evidence of exophthalmos, enophthalmos, nor dysconjugate gaze. There appears to been bilateral cataract surgery No abnormalities at the lacrimal glands The anterior and posterior chambers of the globes are intact. The retrobulbar fat is unremarkable. Ex traocular muscles are unremarkable. OPTIC NERVES: The intracranial and extracranial portions of the optic nerves are within normal limits . Optic chiasm is within normal limits. No MRI evidence of optic neuritis identified. No obvious abn ormality at the level the retinae and no evidence of obvious posterior vitreous detachments. SOFT TISSUES: No significant focal findings. No evidence of abscess. OTHER FINDINGS: None. IMPRESSION: Unremarkable MRI of the brain and orbits DATA REPOSITORY:
[2023-03-23 13:50] LABS: CREATININE 0.8 mg/dL (0.55-1.02); Estimated GFR 78.24 (mL/min/1.73m2)
[2023-03-23] MEDS: Normal Saline Flush 10 ML SYR IVP (14:22)
[2023-03-23] MEDS: Gadoterate meglumine 20 ML SYRINGE 14 ML IVP (14:23)
[2023-03-24 10:05] LABS: IgA 162 mg/dL (85-499); IgG 704 mg/dL (610-1616); IgM 151 mg/dL (35-242)
[2023-03-24 15:33] LABS: Albumin 60.8 % (55.8-66.1); Albumin g/dL 4.1 g/dL (3.6-5.2); Comment (See Note); Total Protein 6.8 g/dL (6.3-8.2)
[2023-05-07 12:43] LABS: Immunotyping, Serum (See Note)
== END ==
PROVIDERS: PCP Family Medicine; Visit Provider Family Medicine
DX: R51.9 Headache, unspecified; S05.8X1A Other injuries of right eye and orbit, initial encounter; M25.59 Pain in other specified joint
CPT/HCPCS: 70553; 82784; 70543; 82565; 84165; 86320

== ENCOUNTER → 2023-04-22 13:53 | Outpatient (BNVA) | payer MEDICARE, SELFPAY | PROVIDERS: PCP Family Medicine; Referring Provider Family Medicine; Visit Provider Student in an Organized Health Care Education/Training Program | DX: J45.909 Unspecified asthma, uncomplicated (principal); K21.9 Gastro-esophageal reflux disease without esophagitis; G47.30 Sleep apnea, unspecified | CPT/HCPCS: 99214 ==

== ENCOUNTER → 2023-04-27 14:17 | Outpatient (BNVA) | payer MEDICARE, SELFPAY | PROVIDERS: PCP Family Medicine; Referring Provider Family Medicine; Visit Provider Nurse Practitioner Adult Health | DX: G43.109 Migraine with aura, not intractable, without status migrainosus (principal) | CPT/HCPCS: 99215 ==

== ENCOUNTER → 2023-05-05 03:07 | Outpatient (CLI) | payer MEDICARE, SELFPAY ==
--- NOTE | 2023-05-05 15:36 | DI.RAD_ITS ---
Exam(s) XR LUMBAR SPINE COMPLETE EXAM: XR LUMBAR SPINE COMPLETE CLINICAL HISTORY: spinal stenosis L4-5,M48.061. TECHNIQUE: 2D digital imaging was performed. COMPARISON: CT CT ABDOMEN PELVIS W from 02/22/2021 FINDINGS: Five views. There is an unchanged compression fracture of L3 superior endplate which is unchanged from abdominal CT scan of February 2021. No retropulsed cortex at this level. No other fractures identified. No si gnificant disc space narrowing. No osseous lesions. Only mild facet arthropathy. Sacroiliac joints appear unremarkable. Incidentally noted is significant narrowing of both hip joint spaces. IMPRESSION: Chronic unchanged compression fracture of L3, unchanged from CT scan of February 2021. No acute osseous findings in the lumbosacral spine. Degenerative changes both hips. DATA REPOSITORY: RADIATION DOSE DELIVERED:
--- NOTE | 2023-05-05 15:37 | DI.RAD_ITS ---
Exam(s) XR HIP RT COMPLETE AP PELVIS EXAM: XR HIP RT COMPLETE AP PELVIS CLINICAL HISTORY: r hip pain,m25.551. TECHNIQUE: 2D digital imaging was performed. COMPARISON: No exams were available for comparison FINDINGS: Two views. No evidence of pelvic nor hip fractures. Advanced osteoarthritic degenerative changes are noted in b oth hips. SI joints appear unremarkable. IMPRESSION: Advanced OA both hips DATA REPOSITORY: RADIATION DOSE DELIVERED:
== END ==
PROVIDERS: PCP Family Medicine; Visit Provider Family Medicine
DX: M48.061 Spinal stenosis, lumbar region without neurogenic claudication (principal); M16.0 Bilateral primary osteoarthritis of hip
CPT/HCPCS: 72110; 73502

== ENCOUNTER 2023-05-11 04:43 | Outpatient (CLI) | payer MEDICARE, SELFPAY ==
[2023-05-12 15:53] LABS: Albumin 64.3 % (55.8-66.1); Albumin g/dL 4.2 g/dL (3.6-5.2); Total Protein 6.5 g/dL (6.3-8.2)
== END 2023-05-11 04:44 | disposition home or self-care (01) ==
LOC: LBO 04:43
PROVIDERS: PCP Family Medicine; Visit Provider Family Medicine
DX: R77.8 Other specified abnormalities of plasma proteins (principal)
CPT/HCPCS: 36415; 84165

== ENCOUNTER → 2023-07-06 14:04 | Outpatient (BNVA) | payer MEDICARE, SELFPAY | PROVIDERS: PCP Family Medicine; Referring Provider Family Medicine; Visit Provider Nurse Practitioner Adult Health | DX: R51.9 Headache, unspecified (principal) | CPT/HCPCS: 99213 ==

== ENCOUNTER → 2023-10-20 14:45 | Outpatient (BNVA) | payer MEDICARE, SELFPAY | PROVIDERS: PCP Family Medicine; Referring Provider Family Medicine; Visit Provider Physician Assistant Surgical | DX: J45.909 Unspecified asthma, uncomplicated (principal); K21.9 Gastro-esophageal reflux disease without esophagitis; G47.30 Sleep apnea, unspecified | CPT/HCPCS: 99214 ==

== ENCOUNTER 2023-12-06 02:20 | Outpatient (RCR) | payer MEDICARE, SELFPAY ==
[2023-12-06] MEDS: Denosumab 60 MG/ML SYR SC (13:35)
== END 2023-12-23 23:59 | disposition home or self-care (01) ==
LOC: INF 02:20
PROVIDERS: PCP Family Medicine; Visit Provider Family Medicine
DX: M81.0 Age-related osteoporosis without current pathological fracture (principal)
CPT/HCPCS: 96372; J0897

== ENCOUNTER 2024-01-10 03:09 | Outpatient (CLI) | payer MEDICARE, SELFPAY ==
[2024-01-10 09:16] LABS: Calculated LDL 156 mg/dL (<100); Cholesterol 262 mg/dL (<200); HDL Cholesterol 92 mg/dL (40-60); Triglyceride 73 mg/dL (<150)
[2024-01-10 20:32] LABS: Hepatitis C Ab w Rflx HCV PCR Negative (Negative)
== END 2024-01-10 03:10 | disposition home or self-care (01) ==
LOC: LBO 03:09
PROVIDERS: PCP Family Medicine; Visit Provider Family Medicine
DX: Z13.6 Encounter for screening for cardiovascular disorders (principal); Z11.59 Encounter for screening for other viral diseases
CPT/HCPCS: 36415; 80061; 86803

== ENCOUNTER 2024-02-14 02:24 | Outpatient (CLI) | payer MEDICARE, SELFPAY ==
[2024-02-14 10:09] LABS: Hemoglobin A1C 5.8 % (<5.7)
[2024-02-17 15:27] LABS: Albumin 59.6 % (55.8-66.1); Albumin g/dL 4.1 g/dL (3.6-5.2); Comment (See Note); Total Protein 6.8 g/dL (6.3-8.2)
[2024-02-17 16:23] LABS: Immunotyping, Serum (See Note)
[2024-02-21 17:01] LABS: Apolipoprotein B, Serum 116 mg/dL (48-124); Beta VLDL Cholesterol Not Detected mg/dL (<15); Beta VLDL Triglycerides Not Detected mg/dL (<15); Cholesterol, Total, CDC 263 mg/dL; Chylomicron Cholesterol Not Detected; Chylomicron Triglycerides Not Detected; HDL Cholesterol, CDC 73 mg/dL (>=50); LDL Cholesterol 135 mg/dL; LDL Triglycerides 41 mg/dL (<=50); Lp(a) Cholesterol 40 mg/dL (<5); LpX Not detected; Triglycerides, CDC 91 mg/dL; VLDL Cholesterol 15 mg/dL (<30); VLDL Triglycerides 31 mg/dL (<120)
== END 2024-02-14 02:25 | disposition home or self-care (01) ==
PROVIDERS: PCP Family Medicine; Visit Provider Family Medicine
DX: E78.00 Pure hypercholesterolemia, unspecified (principal); E11.9 Type 2 diabetes mellitus without complications; R77.8 Other specified abnormalities of plasma proteins
CPT/HCPCS: 36415; 80061; 82172; 82664; 83036; 84165; 86320

== ENCOUNTER 2024-03-10 00:16 | Outpatient (CLI) | payer MEDICARE, SELFPAY ==
--- NOTE | 2024-03-10 08:11 | DI.DEXA_ITS ---
Exam(s) XR DEXA BONE DENSITY W/WO FELIPE EXAM: XR DEXA BONE DENSITY W/WO FELIPE CLINICAL HISTORY: screening for osteoporosis in postmenopausal status,z78.0 TECHNIQUE: [employer] C densitometer analysis of left hip, lumbar spine and right forearm. La teral survey image of the thoracic and lumbar spine. COMPARISON: CR XR LUMBAR SPINE COMPLETE from 05/05/2023 FINDINGS: Lateral view of the thoracic and lumbar spine shows a stable L3 compression fractures. No new compre ssion fractures. Bone mineral density measurements of the lumbar spine correspond to a total T-score of -1.7, in the osteopenic range. Bone mineral density measurements of the left hip correspond to a total T-score of -1.2, in the oste openic range. The femoral neck T-score is -0.9. The right forearm bone mineral density measurements correspond to a T-score of the distal 3rd of -0.6 , in the normal range. . IMPRESSION: Osteopenia of the spine and hip. Normal bone mineral density of the forearm.
--- NOTE | 2024-03-10 08:11 | DI.MAMMO_ITS ---
Exam(s) MAMMO SCREENING EXAM: MAMMO SCREENING CLINICAL HISTORY: screening,z12,39 TECHNIQUE: Mammograms were interpreted according to the usual protocol including computer analysis w [employer] CAD system, tomosynthesis and C-view imaging. COMPARISON: 2018 through 2022 FINDINGS: The breasts are composed of scattered fibroglandular densities, Breast Density category B. No suspicious masses or suspicious microcalcifications are seen. No skin thickening or abnormal axillary lymph nodes are seen. There has been no significant change from prior exams. IMPRESSION: BI-RADS Category 1, Negative mammogram Yearly screening mammography is recommended. Breast Density - Category B, scattered fibroglandular densities. A negative radiographic report should not delay biopsy if a dominant or clinically suspicious mass is present. Up to ten percent of cancers are not identified on mammography. A negative report may reinforce clinical impression. Adenosis and dense breasts may obscure an underlying neoplasm. False positive reports average 6 to 10%. Patient will receive a letter notifying them of these results.
== END 2024-03-10 00:36 ==
PROVIDERS: PCP Family Medicine; Visit Provider Family Medicine
DX: Z12.31 Encounter for screening mammogram for malignant neoplasm of breast (principal); Z13.820 Encounter for screening for osteoporosis
CPT/HCPCS: 77063; 77067; 77080

== ENCOUNTER → 2024-04-18 14:50 | Outpatient (BNVA) | payer MEDICARE, SELFPAY | PROVIDERS: PCP Family Medicine; Referring Provider Family Medicine; Visit Provider Physician Assistant Surgical | DX: J45.909 Unspecified asthma, uncomplicated (principal); K21.9 Gastro-esophageal reflux disease without esophagitis; G47.30 Sleep apnea, unspecified | CPT/HCPCS: 99214 ==

== ENCOUNTER 2024-06-28 07:34 | Outpatient (RCR) | payer MEDICARE, SELFPAY ==
[2024-06-28] MEDS: Denosumab 60 MG/ML SYR SC (12:45)
== END 2024-07-22 23:59 | disposition home or self-care (01) ==
LOC: INF 07:34
PROVIDERS: PCP Family Medicine; Visit Provider Family Medicine
DX: M81.0 Age-related osteoporosis without current pathological fracture (principal)
CPT/HCPCS: 96372; J0897

== ENCOUNTER → 2024-10-18 13:54 | Outpatient (BNVA) | payer MEDICARE, SELFPAY | PROVIDERS: PCP Family Medicine; Referring Provider Family Medicine; Visit Provider Physician Assistant Surgical | DX: J45.909 Unspecified asthma, uncomplicated (principal); K21.9 Gastro-esophageal reflux disease without esophagitis; G47.30 Sleep apnea, unspecified | CPT/HCPCS: 99214 ==

== ENCOUNTER 2024-12-05 03:25 | Outpatient (CLI) | payer MEDICARE, SELFPAY ==
[2024-12-05 14:09] LABS: Glucose Negative (Negative)
[2024-12-05 14:17] LABS: C & S Indicated? No; RBC 0-2 HPF (0-2); WBC 0-2 HPF (0-5)
[2024-12-05 14:43] LABS: ALT 20 U/L (14-59); AST 17 U/L (15-37); Albumin 3.4 g/dL (3.4-5.0); Alkaline Phosphatase 55 U/L (46-116); Anion Gap 11.8 mmol/L (3-11); BUN 15 mg/dL (7-18); Bilirubin, Total 0.3 mg/dL (0.2-1.0); CO2 27.2 mmol/L (21.0-32.0); Calcium 9.1 mg/dL (8.5-10.1); Chloride 100 mmol/L (98-107); Estimated GFR 67.08 (mL/min/1.73m2); Glucose 85 mg/dL (74-106); Potassium 3.7 mmol/L (3.5-5.1); Sodium 139 mmol/L (136-145); Total Protein 7.0 g/dL (6.4-8.2)
[2024-12-05 15:23] LABS: Vitamin B12 690 pg/mL (193-986); Vitamin D 25 Total 44 ng/mL (30-100)
== END 2024-12-05 03:26 | disposition home or self-care (01) ==
LOC: LBO 03:25
PROVIDERS: PCP Family Medicine; Visit Provider Family Medicine
DX: R30.0 Dysuria (principal); E55.9 Vitamin D deficiency, unspecified; K21.9 Gastro-esophageal reflux disease without esophagitis; I10 Essential (primary) hypertension
CPT/HCPCS: 36415; 80053; 82306; 81003; 81015; 82607

== ENCOUNTER 2025-01-01 03:04 | Outpatient (RCR) | payer MEDICARE, SELFPAY ==
[2025-01-01] MEDS: Denosumab 60 MG/ML SYR SC (13:10)
== END 2025-01-21 23:59 | disposition home or self-care (01) ==
LOC: INF 03:04
PROVIDERS: PCP Family Medicine; Visit Provider Family Medicine
DX: M81.0 Age-related osteoporosis without current pathological fracture (principal)
CPT/HCPCS: 96372; J0897